=== PATIENT | female | born 1960 | race Asian ===

== ENCOUNTER 2018-09-16 17:42 | Inpatient (IN) | payer BC ==
[~2018-09-16] VITALS: Ht 144.8 cm; Wt 40.9 kg
[2018-09-16 23:07] VITALS: Ht 144.8 cm; Wt 40.9 kg
[2018-09-17] VITALS (10 sets, daily range): BP systolic 95–131; BP diastolic 53–80; PULSE 69–85; RESP 16–19
[2018-09-17] MEDS ORDERED: BENZ2TAB7 PO (01:24)
[2018-09-17] MEDS ORDERED: LAMO25TA PO (01:25)
[2018-09-17] MEDS ORDERED: RISP0.5T3 PO (01:26)
[2018-09-17] MEDS ORDERED: AMLO2.5T78 PO (01:30)
[2018-09-17] MEDS ORDERED: CYAN50TA PO (01:31)
[2018-09-17] MEDS ORDERED: ACETAMINOPHEN 325 MG TAB PO PRN (03:30)
[2018-09-17] MEDS ORDERED: NITROGLYCERIN (SL) 0.4 MG TAB SL PRN (03:30)
[2018-09-17] MEDS ORDERED: morphine SULFATE/PF (2 MG/2 ML) SYG IV PRN (03:30)
[2018-09-17] MEDS ORDERED: hydrALAzine 20 MG INJ IV PRN (03:30)
[2018-09-17] MEDS ORDERED: NACL 0.9% 3 ML SYG IV SCH (03:30)
[2018-09-17] MEDS ORDERED: ONDANSETRON 4 MG INJ IV PRN (03:30)
[2018-09-17] MEDS ORDERED: ALBUTEROL/IPRATROPIUM (NEB) 3 ML AMP HHN PRN (03:30)
[2018-09-17] MEDS ORDERED: DOCUSATE SODIUM 100 MG CAP PO PRN (03:30)
[2018-09-17] MEDS ORDERED: HYDROCODONE/APAP (5/325) TAB PO PRN (03:30)
[2018-09-17] MEDS ORDERED: LORAZEPAM 2 MG INJ IV PRN ×2 (03:30)
[2018-09-17] MEDS ORDERED: MAGNESIUM HYDROXIDE 30ML CUP PO PRN (03:30)
[2018-09-17] MEDS: CEFTRIAXONE 1 GM/50 ML (PMX) 50 ML IVPB SCH (04:12)
[2018-09-17] MEDS: SOD CHLORIDE 0.45% 1,000 ML IV SCH ×2 (04:12→18:28)
[2018-09-17] MEDS ORDERED: PENDING SANTYL ORDER FOR WOUND CARE XX PRN (05:00)
[2018-09-17] MEDS: PANTOPRAZOLE 40 MG INJ IV SCH (05:17)
--- NOTE | 2018-09-17 06:22 | HP ---
DATE OF ADMISSION: 09/16/2018 CHIEF COMPLAINT: Altered mental status and new seizures. HISTORY OF PRESENT ILLNESS: A 58-year-old female transferred from outside hospital, prior history of severe dementia, bedridden, nonverbal, cared for at home by , who was brought into [facility] ER with altered mental status. Apparently, she has had some subjective fevers at home rec ently. Family became concerned, especially when yesterday, before coming to the ER, they found the patient t o be less responsive and possible seizure activity, which the patient has never had at home. EMS was called. She received Versed in the ER and then was transferred to the emergency room. There, she w as found with sodium of 127. White count was slightly high at 11. She initially had a high lactic a scott of 8.4 and she received around 2 liters of IV fluids because of low blood pressure. The blood pr essure improved after the IV fluids were given. She came back to her baseline blood pressure. She w as also found with a UTI at the outside hospital. She also received Keppra 500 mg IV because of the concern for seizures. No upper or lower GI bleeding, no diarrhea or constipation. PAST MEDICAL HISTORY: Per records, prior history of West Nile virus infection, high cholesterol, hyp ertension. SOCIAL HISTORY: Negative for smoking, drinking or IV drug abuse. FAMILY HISTORY: Positive for Alzheimer's disease in the mother. PAST SURGICAL HISTORY: Unknown. PHYSICAL EXAMINATION: VITAL SIGNS: Today, T-max 97.9, pulse 70, respirations 18, blood pressure 103/59 satting at 98% on r oom air. GENERAL: The patient is lying in bed, no acute distress. HEENT: Pupils equal, round and reactive to light. Extraocular muscles intact. NECK: Supple, no thyromegaly. LUNGS: Clear to auscultation bilaterally. CARDIOVASCULAR: S1, S2 heard. No rubs or gallops. ABDOMEN: Soft, nontender, nondistended. Normal bowel sounds heard. No rebound or guarding. MUSCULOSKELETAL: No lower extremity edema bilaterally. NEUROLOGIC: Unable to fully assess at this time. LABORATORY DATA: UA shows positive nitrites and positive leukocyte esterase. WBC 11.2, hemoglobin 1 1.2, hematocrit 33, platelets 375. Sodium 127, potassium 3.7, chloride 95, CO2 of 16, BUN of 4, crea tinine 0.89, glucose of 147. LFTs are essentially normal. Lipase was normal. Ammonia was normal. Head CT at the outside hospital showed no acute intracranial pathology. ASSESSMENT AND PLAN: A 58-year-old female with history of severe dementia, bedbound, nonverbal, high cholesterol, hypertension who comes in with altered mental status and seizure activity and hyponatre zeny. 1. Altered mental status could be secondary to the patient's UTI and new onset seizure activity. Ad mariama the patient. Check TSH, A1c, lipid panel. Get physical therapy and occupational therapy consult s. We will check EEG, do neuro checks every 4 hours. Will get a neurology consult. Start the patie nt on low-dose Keppra for now. 2. Urinary tract infection. Again, we will continue IV fluids and broad-spectrum antibiotics. Foll ow up final culture results. 3. Hypernatremia. Monitor BMP. Continue IV fluids. 4. History of hypertension. Blood pressure stable. Continue hydralazine as needed p.r.n. 5. High cholesterol. Follow up lipid panel. 6. History of severe dementia. Monitor for now. We will get Neurology consult as mentioned above. Dictated By: ANGELLA HOLMAN/REBEKAH Conf#: [id number] DID#: [id number] CC: ANGELLA PERRIN;*EndCC*
[2018-09-17] MEDS ORDERED: LEVETIRACETAM 500 MG (PMX) 100 ML IVPB SCH (09:00)
[2018-09-17] MEDS: HEPARIN 5,000 UNIT/1 ML VIAL SC SCH ×2 (10:01→22:22)
--- NOTE | 2018-09-17 12:30 | PN ---
Date/Time of Note Date/Time of Note DATE: 09/17/18 TIME: 12:30 Assessment/Plan VTE Prophylaxis Risk score (from Nsg)>0 risk: 3 SCD applied (from Ns): Yes Pharmacological prophylaxis: heparin Lines/Catheters IV Catheter Type (from Nrs): Saline Lock Assessment/Plan Hospital Course S: sl;eeping comfortably, was medicatied with ativaln for agitation O: Constitutional: sleeping, did not try to arouse Head: atraumatic, normocephalic, NC Neck: non-tender, supple Respiratory: clear to auscultation, diminished Cardiovascular: regular rate and rhythm Gastrointestinal: S/ NT / ND / +BS Extremities: no edema, good radial pulses, frail, assessment and Plan: 58 yo F with a slow early onset dementia, cause unknown who is non verbal at baseline who was toma in for abnormal jerking behaviour concerning for seizures 1. Altered mentation with concern for possible new onset seizures -Brain CT at outside hospital negative per report 2. Urinary tract infection per report 3. Chronic dementia/encephalopathy, nonverbal at baseline? 4. History of West Nile virus infection, causing #3? 5. Chronic dyslipidemia 6. Chronic hypertension 7. Chronic psychiatric d/c on risperdone with benztropine for tardive dyskinesia ? -dose of benztropine recently reduced Plan : -we will order MRI of the brain, continue antiseizure medications, await neurology review - concerned that reduction in dose of benztropine may be contributory - does not want chest compressions but wants short term intubation if neccesary and meds administered. Does not want shocks as well -Continue broad-spectrum antibiotics, follow-up urinalysis and urine culture, further interventions per course. Result Diagram: 09/17/18 0453 09/17/18 0452 Results 24hrs Laboratory Tests Test 09/17/18 04:52 09/17/18 04:53 Prothrombin Time 13.2 Prothrombin Time Ratio 1.0 INR International Normalized Ratio 0.99 Activated Partial Thromboplast Time 29.2 Sodium Level 140 Potassium Level 3.2 L Chloride Level 108 Carbon Dioxide Level 20 L Anion Gap 12 Blood Urea Nitrogen 4 L Creatinine 0.30 L Est Glomerular Filtrat Rate mL/min > 60 Glucose Level 79 Calcium Level 8.6 Free Thyroxine 1.80 H White Blood Count 7.0 Red Blood Count 3.51 L Hemoglobin 10.9 L Hematocrit 31.4 L Mean Corpuscular Volume 89.5 Mean Corpuscular Hemoglobin 31.1 Mean Corpuscular Hemoglobin Concent 34.7 Red Cell Distribution Width 11.9 Platelet Count 293 Mean Platelet Volume 8.1 Immature Granulocytes % 0.300 Neutrophils % 78.0 H Lymphocytes % 12.2 L Monocytes % 6.1 Eosinophils % 2.7 Basophils % 0.7 Nucleated Red Blood Cells % 0.0 Immature Granulocytes # 0.020 Neutrophils # 5.5 Lymphocytes # 0.9 Monocytes # 0.4 Eosinophils # 0.2 Basophils # 0.1 Nucleated Red Blood Cells # 0.0 Exam/Review of Systems Exam Vitals Vital Signs Date Temp Pulse Resp B/P (MAP) Pulse Ox O2 O2 Flow FiO2 Time Delivery Rate 09/17/18 96.3 74 16 98/53 (68) 100 Nasal 11:12 Cannula Intake and Output 09/16/18 09/16/18 09/17/18 1515:00 23:00 07:00 IntakeIntake Total 150 ml BalanceBalance 150 ml Results Results 24hrs Laboratory Tests Test 09/17/18 04:52 09/17/18 04:53 Prothrombin Time 13.2 Prothrombin Time Ratio 1.0 INR International Normalized Ratio 0.99 Activated Partial Thromboplast Time 29.2 Sodium Level 140 Potassium Level 3.2 L Chloride Level 108 Carbon Dioxide Level 20 L Anion Gap 12 Blood Urea Nitrogen 4 L Creatinine 0.30 L Est Glomerular Filtrat Rate mL/min > 60 Glucose Level 79 Calcium Level 8.6 Free Thyroxine 1.80 H White Blood Count 7.0 Red Blood Count 3.51 L Hemoglobin 10.9 L Hematocrit 31.4 L Mean Corpuscular Volume 89.5 Mean Corpuscular Hemoglobin 31.1 Mean Corpuscular Hemoglobin Concent 34.7 Red Cell Distribution Width 11.9 Platelet Count 293 Mean Platelet Volume 8.1 Immature Granulocytes % 0.300 Neutrophils % 78.0 H Lymphocytes % 12.2 L Monocytes % 6.1 Eosinophils % 2.7 Basophils % 0.7 Nucleated Red Blood Cells % 0.0 Immature Granulocytes # 0.020 Neutrophils # 5.5 Lymphocytes # 0.9 Monocytes # 0.4 Eosinophils # 0.2 Basophils # 0.1 Nucleated Red Blood Cells # 0.0 Medications Medication Current Medications IV Flush (NS 3 ml) 3 ml PER PROTOCOL IV ; Start 09/17/18 at 03:30 Ondansetron HCl (Zofran Inj) 4 mg Q6H PRN IV NAUSEA/VOMITING; Start 09/17/18 at 03:30 Acetaminophen (Tylenol Tab) 650 mg Q6H PRN PO .PAIN 1-3 OR TEMP; Start 09/17/18 at 03:30 Acetaminophen/ Hydrocodone Bitart ([place] (5/325)) 1 tab Q6H PRN PO .MOD PAIN 4- 6; Start 09/17/18 at 03:30 Morphine Sulfate (morphine SULFATE (PF)) 2 mg Q4H PRN IV .SEVERE PAIN 7-10; Start 09/17/18 at 03:30 Docusate Sodium (Colace) 100 mg Q12H PRN PO .CONSTIPATION; Start 09/17/18 at 03:30 Magnesium Hydroxide (Milk Of Mag) 30 ml DAILY PRN PO .CONSTIPATION; Start 09/17/18 at 03:30 Pantoprazole (Protonix Iv) 40 mg DAILY@06 IV Last administered on 09/17/18at 05:17; Admin Dose 40 MG; Start 09/17/18 at 06:00 Heparin Sodium (Porcine) (Heparin (5000 Units/1ml)) 5,000 unit Q12 SC Last administered on 09/17/18at 10:01; Admin Dose 5,000 UNIT; Start 09/17/18 at 09:00 Sodium Chloride 1,000 ml @ 75 mls/hr [id number] IV Last administered on 09/17/18at 04:12; Admin Dose 75 MLS/HR; Start 09/17/18 at 03:12 Albuterol/ Ipratropium (Duoneb) 3 ml Q4H RESP THERAPY PRN HHN SHORTNESS OF BREATH; Start 09/17/18 at 03:30 Hydralazine HCl (Apresoline) 10 mg Q6H PRN IV ELEVATED BLOOD PRESSURE; Start 09/17/18 at 03:30 Ceftriaxone Sodium 50 ml @ 100 mls/hr Q24H IVPB Last administered on 09/17/18at 04:12; Admin Dose 100 MLS/HR; Start 09/17/18 at 03:30 Nitroglycerin (Nitroglycerin (Sl Tab) 0.4 Mg) 1 tab Q5M PRN SL ANGINA; Start 09/17/18 at 03:30 Levetiracetam 100 ml @ 400 mls/hr Q12 IVPB Last administered on 09/17/18at 09:54; Admin Dose 400 MLS/HR; Start 09/17/18 at 09:00 Lorazepam (Ativan) 1 mg Q2H PRN IV SEIZURES Last administered on 09/17/18at 03:57; Admin Dose 1 MG; Start 09/17/18 at 03:30 Miscellaneous Information (Pending [facility] Order For Wound Care) This patient goel... PRN PRN XX WOUND CARE; Start 09/17/18 at 05:00 DYLAN RAMOS Sep 17, 2018 12:30
--- NOTE | 2018-09-17 15:07 | CONS ---
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 She was reported to have a seizure... for which neurology is consulted. Of note, she was severely hyponatremic on arrival. UA + Most clinically consistent with a provoked seizure in the context of hyponatremia. New onset epilepsy is additionally considered. P: MRI brain with and without contrast for further characterization Await EEG to evaluate for epileptiform activity Hold Keppra for now Ativan IV PRN seizure > 5min or for cluster Other medical management per primary [place] as able Limit sedating medications where possible PT/OT/ST as necessary Will follow clinically Consultation Date/Type/Reason Admit Date/Time Sep 16, 2018 at 22:12 Type of Consult Neurology Reason for Consultation new onset seizures Requesting Provider: ANGELLA PERRIN Date/Time of Note DATE: 09/17/18 TIME: 15:07 Hx of Present Illness 58 yo F with hx of WNV infection, chronic encephalopathy, and other comorbidities who presents with altered mental status and new onset seizures. History was obtained from chart review as pt is a poor historian. It is elsewhere noted: HISTORY OF PRESENT ILLNESS: A 58-year-old female transferred from outside hospital, prior history of severe dementia, bedridden, nonverbal, cared for at home by , who was brought into the outside hospital ER with altered mental status. Apparently, she has had some subjective fevers at home recently. Family became concerned, especially when yesterday, before coming to the ER, they found the patient to be less responsive and possible seizure activity, which the patient has never had at home. EMS was called. She received Versed in the ER and then was transferred to the emergency room. There, she was found with sodium of 127. White count was slightly high at 11. She initially had a high lactic acid of 8.4 and she received around 2 liters of IV fluids because of low blood pressure. The blood pressure improved after the IV fluids were given. She came back to her baseline blood pressure. She was also found with a UTI at the outside hospital. She also received Keppra 500 mg IV because of the concern for seizures. No upper or lower GI bleeding, no diarrhea or constipation. Subjective hx not possible: pt non-verbal Exam/Review of Systems Exam Vitals Vital Signs Date Temp Pulse Resp B/P (MAP) Pulse Ox O2 O2 Flow FiO2 Time Delivery Rate 09/17/18 76 12:00 09/17/18 96.3 16 98/53 (68) 100 Nasal 11:12 Cannula Intake and Output 09/16/18 09/16/18 09/17/18 1515:00 23:00 07:00 IntakeIntake Total 150 ml BalanceBalance 150 ml Exam PE: Gen Appearance: No Apparent Distress HEENT: Normocephalic Cardiovascular: Regular rate Abdomen: Soft Extremities: Dry NE: The patient was obtunded and nonverbal. Grimaces to noxious stimuli. Cranial nerve examination was limited by mental status. Pupils were equal and reactive to light. There was no afferent pupillary defect. Funduscopic examination was limited. Face was grossly symmetric, w/ present corneal and cough reflexes. Tone was spastic in BUE. Muscle bulk was diminished. I did not see fasciculations. The patient withdrew to noxious stimulation x 4. Coordination and gait testing was limited by mental status. Leg reflexes were brisk and symmetric. Hudson's sign was absent. Plantar responses were flexor. Results Result Diagram: 09/17/18 0453 09/17/18 0452 Results 24hrs Laboratory Tests Test 09/17/18 04:48 09/17/18 04:52 09/17/18 04:53 09/17/18 14:15 Thyroid Stimulating 1.940 Hormone (TSH) Prothrombin Time 13.2 Prothrombin Time Ratio 1.0 INR International 0.99 Normalized Ratio Activated 29.2 Partial Thromboplast Time Sodium Level 140 Potassium Level 3.2 L Chloride Level 108 Carbon Dioxide Level 20 L Anion Gap 12 Blood Urea Nitrogen 4 L Creatinine 0.30 L Est Glomerular Filtrat > 60 Rate mL/min Glucose Level 79 Calcium Level 8.6 Free Thyroxine 1.80 H White Blood Count 7.0 Red Blood Count 3.51 L Hemoglobin 10.9 L Hematocrit 31.4 L Mean Corpuscular Volume 89.5 Mean Corpuscular 31.1 Hemoglobin Mean Corpuscular 34.7 Hemoglobin Concent Red Cell Distribution 11.9 Width Platelet Count 293 Mean Platelet Volume 8.1 Immature Granulocytes % 0.300 Neutrophils % 78.0 H Lymphocytes % 12.2 L Monocytes % 6.1 Eosinophils % 2.7 Basophils % 0.7 Nucleated Red Blood 0.0 Cells % Immature Granulocytes # 0.020 Neutrophils # 5.5 Lymphocytes # 0.9 Monocytes # 0.4 Eosinophils # 0.2 Basophils # 0.1 Nucleated Red Blood 0.0 Cells # Urine Color YELLOW Urine Clarity CLOUDY A Urine pH 7.0 Urine Specific [place] 1.009 Urine Ketones 1+ H Urine Nitrite POSITIVE A Urine Bilirubin NEGATIVE Urine Urobilinogen NEGATIVE Urine Leukocyte Esterase 3+ H Urine Microscopic RBC 1 Urine Microscopic WBC 17 H Urine Bacteria FEW A Urine Mucus FEW A Urine Yeast (Budding) FEW A Urine Hemoglobin 1+ H Urine Glucose NEGATIVE Urine Total Protein NEGATIVE Medications Medication Current Medications IV Flush (NS 3 ml) 3 ml PER PROTOCOL IV ; Start 09/17/18 at 03:30 Ondansetron HCl (Zofran Inj) 4 mg Q6H PRN IV NAUSEA/VOMITING; Start 09/17/18 at 03:30 Acetaminophen (Tylenol Tab) 650 mg Q6H PRN PO .PAIN 1-3 OR TEMP; Start 09/17/18 at 03:30 Acetaminophen/ Hydrocodone Bitart ([place] (5/325)) 1 tab Q6H PRN PO .MOD PAIN 4- 6; Start 09/17/18 at 03:30 Morphine Sulfate (morphine SULFATE (PF)) 2 mg Q4H PRN IV .SEVERE PAIN 7-10; Start 09/17/18 at 03:30 Docusate Sodium (Colace) 100 mg Q12H PRN PO .CONSTIPATION; Start 09/17/18 at 03:30 Magnesium Hydroxide (Milk Of Mag) 30 ml DAILY PRN PO .CONSTIPATION; Start 09/17/18 at 03:30 Pantoprazole (Protonix Iv) 40 mg DAILY@06 IV Last administered on 09/17/18at 05:17; Admin Dose 40 MG; Start 09/17/18 at 06:00 Heparin Sodium (Porcine) (Heparin (5000 Units/1ml)) 5,000 unit Q12 SC Last administered on 09/17/18at 10:01; Admin Dose 5,000 UNIT; Start 09/17/18 at 09:00 Sodium Chloride 1,000 ml @ 75 mls/hr [id number] IV Last administered on 09/17/18at 04:12; Admin Dose 75 MLS/HR; Start 09/17/18 at 03:12 Albuterol/ Ipratropium (Duoneb) 3 ml Q4H RESP THERAPY PRN HHN SHORTNESS OF BREATH; Start 09/17/18 at 03:30 Hydralazine HCl (Apresoline) 10 mg Q6H PRN IV ELEVATED BLOOD PRESSURE; Start 09/17/18 at 03:30 Ceftriaxone Sodium 50 ml @ 100 mls/hr Q24H IVPB Last administered on 09/17/18at 04:12; Admin Dose 100 MLS/HR; Start 09/17/18 at 03:30 Nitroglycerin (Nitroglycerin (Sl Tab) 0.4 Mg) 1 tab Q5M PRN SL ANGINA; Start 09/17/18 at 03:30 Levetiracetam 100 ml @ 400 mls/hr Q12 IVPB Last administered on 09/17/18at 09:54; Admin Dose 400 MLS/HR; Start 09/17/18 at 09:00 Lorazepam (Ativan) 1 mg Q2H PRN IV SEIZURES Last administered on 09/17/18at 03:57; Admin Dose 1 MG; Start 09/17/18 at 03:30 Miscellaneous Information (Pending [facility] Order For Wound Care) This patient goel... PRN PRN XX WOUND CARE; Start 09/17/18 at 05:00 Potassium Chloride 100 ml @ 50 mls/hr Q2H IVPB ; Start 09/17/18 at 14:30; Stop 09/17/18 at 18:29 Past Medical History reviewed Home Meds Reported Medications Cyanocobalamin* (Vitamin B-12*) 50 Mcg Tablet, 50 MCG PO DAILY, TAB 09/17/18 Amlodipine Besylate* (Amlodipine Besylate*) 2.5 Mg Tablet, 5 MG PO DAILY, #30 TAB 09/17/18 Risperidone* (Risperidone*) 0.5 Mg Tablet, 0.5 MG PO DAILY, TAB 09/17/18 Lamotrigine* (Lamotrigine*) 25 Mg Tablet, 25 MG PO DAILY, TAB 09/17/18 Benztropine Mesylate* (Benztropine Mesylate*) 2 Mg Tablet, 2 MG PO BID, TAB 09/17/18 Medications Current Medications IV Flush (NS 3 ml) 3 ml PER PROTOCOL IV ; Start 09/17/18 at 03:30 Ondansetron HCl (Zofran Inj) 4 mg Q6H PRN IV NAUSEA/VOMITING; Start 09/17/18 at 03:30 Acetaminophen (Tylenol Tab) 650 mg Q6H PRN PO .PAIN 1-3 OR TEMP; Start 09/17/18 at 03:30 Acetaminophen/ Hydrocodone Bitart ([place] (5/325)) 1 tab Q6H PRN PO .MOD PAIN 4- 6; Start 09/17/18 at 03:30 Morphine Sulfate (morphine SULFATE (PF)) 2 mg Q4H PRN IV .SEVERE PAIN 7-10; Start 09/17/18 at 03:30 Docusate Sodium (Colace) 100 mg Q12H PRN PO .CONSTIPATION; Start 09/17/18 at 03:30 Magnesium Hydroxide (Milk Of Mag) 30 ml DAILY PRN PO .CONSTIPATION; Start 09/17/18 at 03:30 Pantoprazole (Protonix Iv) 40 mg DAILY@06 IV Last administered on 09/17/18at 05:17; Admin Dose 40 MG; Start 09/17/18 at 06:00 Heparin Sodium (Porcine) (Heparin (5000 Units/1ml)) 5,000 unit Q12 SC Last administered on 09/17/18at 10:01; Admin Dose 5,000 UNIT; Start 09/17/18 at 09:00 Sodium Chloride 1,000 ml @ 75 mls/hr [id number] IV Last administered on 09/17/18at 04:12; Admin Dose 75 MLS/HR; Start 09/17/18 at 03:12 Albuterol/ Ipratropium (Duoneb) 3 ml Q4H RESP THERAPY PRN HHN SHORTNESS OF [place] ATH; Start 09/17/18 at 03:30 Hydralazine HCl (Apresoline) 10 mg Q6H PRN IV ELEVATED BLOOD PRESSURE; Start 09/17/18 at 03:30 Ceftriaxone Sodium 50 ml @ 100 mls/hr Q24H IVPB Last administered on 09/17/18at 04:12; Admin Dose 100 MLS/HR; Start 09/17/18 at 03:30 Nitroglycerin (Nitroglycerin (Sl Tab) 0.4 Mg) 1 tab Q5M PRN SL ANGINA; Start 09/17/18 at 03:30 Levetiracetam 100 ml @ 400 mls/hr Q12 IVPB Last administered on 09/17/18at 09:54; Admin Dose 400 MLS/HR; Start 09/17/18 at 09:00 Lorazepam (Ativan) 1 mg Q2H PRN IV SEIZURES Last administered on 09/17/18at 03:57; Admin Dose 1 MG; Start 09/17/18 at 03:30 Miscellaneous Information [facility] This patient goel... PRN PRN XX WOUND CARE; Start 09/17/18 at 05:00 Potassium Chloride 100 ml @ 50 mls/hr Q2H IVPB ; Start 09/17/18 at 14:30; Stop 09/17/18 at 18:29 Allergies: Coded Allergies: No Known Allergy (Unverified , 09/17/18) Past Surgical History reviewed Social History reviewed Smoking Status: Never smoker SWEETIE NATARAJAN NP Sep 17, 2018 15:07 CA ZURITA Sep 17, 2018 17:53
[2018-09-17] MEDS: POTASSIUM CHLORIDE 100 ML IVPB SCH ×2 (15:21→18:28)
[2018-09-18] VITALS (31 sets, daily range): BP systolic 56–172; BP diastolic 47–103; PULSE 53–86; RESP 8–24
[2018-09-18] MEDS: CEFTRIAXONE 1 GM/50 ML (PMX) 50 ML IVPB SCH (04:12)
[2018-09-18] MEDS: SOD CHLORIDE 0.45% 1,000 ML IV SCH (06:43)
[2018-09-18] MEDS: PANTOPRAZOLE 40 MG INJ IV SCH (06:43)
[2018-09-18] MEDS ORDERED: ETOMIDATE 20 MG INJ ONE (07:00)
[2018-09-18] MEDS ORDERED: SUCCINYLCHOLINE CHLORIDE 100 MG/5 ML SYG IV ONE (07:00)
--- NOTE | 2018-09-18 07:10 | EEG ---
EEG NOTE Report Details DATE OF TEST: 09/17/18 HISTORY: The patient is a 58-year-old F who presents with altered mental status and seizure. This EEG is requested to rule out nonconvulsive status epilepticus. SEDATION: None. CONDITIONS OF RECORDING: This EEG was recorded digitally on the [employer] machine, using the International 10-20 System of electrodes plus anterior temporals and [place]. STATES SAMPLED: Lethargic. FINDINGS: The background is somewhat discontinuous, though grossly symmetric...predominated by polymorphic delta activity.. There are generalized periodic epileptiform discharges throughout. A posterior dominant rhythm is absent. The normal [id number] frequency-amplitude gradient is absent. Photic stimulation does not elicit any definite driving responses or epileptiform discharges. Hyperventilation was not performed. There is a Right Temporal onset electrographic seizure with secondary generalization toward the culmination of the record. IMPRESSION: Abnormal electroencephalogram due to: severe diffuse slowing with generalized periodic epileptiform discharges, and a right temporal onset electrographic seizure with secondary generalization. COMMENT: The slowing of the background with generalized periodic epileptiform discharges indicates severe, diffuse cortical dysfunction of nonspecific etiology. A right temporal onset electrographic seizure with secondary generalization indicates an epileptogenic focus in that region. CA ZURITA Sep 18, 2018 07:10
[2018-09-18] MEDS ORDERED: PHENYTOIN 1,000 MG in SOD CHLORIDE 0.9% 100 ML IV ONE (07:30)
[2018-09-18] MEDS: LEVETIRACETAM 500 MG (PMX) 100 ML IVPB SCH ×3 (08:57→23:00)
--- NOTE | 2018-09-18 09:18 | PN ---
Date/Time of Note Date/Time of Note DATE: 09/18/18 TIME: 09:17 Assessment/Plan VTE Prophylaxis Risk score (from Nsg)>0 risk: 3 SCD applied (from Nsg): Yes Pharmacological prophylaxis: heparin Lines/Catheters IV Catheter Type (from Nrsg): Saline Lock Urinary Cath still in place: No Assessment/Plan Hospital Course S: sleeping deeply, hard to arouse, was given dilantin for persistent seizures on EEG, per at bedside, was having jerklike movements again before dilantin was given O: Constitutional: sleeping, will barely open eyes with aggressive stimulation, no seizure like activity Head: atraumatic, normocephalic, NC Neck: non-tender, supple Respiratory: coarse Cardiovascular: regular rate and rhythm Gastrointestinal: S/ NT / ND / +BS Extremities: no edema, good radial pulses, frail, assessment and Plan: 58 yo F with a slow early onset dementia, cause unknown who is non verbal at baseline who was brought in for abnormal jerking behavior concerning for seizures 1. Altered mentation with concern for possible new onset seizures -Brain CT at outside hospital negative per report -MRI pending -EEG confirms ongoing seizure, -dilantin added to regimen Neurology managing, f/u recs 2. Nitrite + Urinary tract infection -continue empiric abx, continue to monitor cultures 3. Chronic dementia/encephalopathy, -nonverbal and bedbound at baseline. Of gradual onset, no organic cause found despite extensive workup -cared for at home by and children 24hours 4. 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 5. Chronic dyslipidemia 6. Chronic hypertension 7. Chronic psychiatric d/c on risperdone with benztropine for tardive dyskinesia ? -dose of benztropine recently reduced Plan : -appreciate neurology review -monitor mentation closely, d/t sedating effect of antiseizures, patient may be unable to maintain airway -patient also unable to eat d/t aspiration risk, continue d5 1/2 NS -f/u MRI findings -may need TPN for short term ??? -POC discussed in detail with . Result Diagram: 09/18/18 0659 09/18/18 0658 Results 24hrs Laboratory Tests Test 09/17/18 14:15 09/18/18 06:58 09/18/18 06:59 Urine Color YELLOW Urine Clarity CLOUDY A Urine pH 7.0 Urine Specific Pioneer 1.009 Urine Ketones 1+ H Urine Nitrite POSITIVE A Urine Bilirubin NEGATIVE Urine Urobilinogen NEGATIVE Urine Leukocyte Esterase 3+ H Urine Microscopic RBC 1 Urine Microscopic WBC 17 H Urine Bacteria FEW A Urine Mucus FEW A Urine Yeast (Budding) FEW A Urine Hemoglobin 1+ H Urine Glucose NEGATIVE Urine Total Protein NEGATIVE Sodium Level 131 L Potassium Level 4.4 Chloride Level 105 Carbon Dioxide Level 19 L Anion Gap 7 Blood Urea Nitrogen 3 L Creatinine 0.27 L Est Glomerular Filtrat Rate mL/min > 60 Glucose Level 74 Calcium Level 8.8 Phosphorus Level 4.1 Magnesium Level 1.7 Triglycerides Level 60 Cholesterol Level 173 LDL Cholesterol, Calculated 116 HDL Cholesterol 45 Cholesterol/HDL Ratio 3.8 Thyroid Stimulating Hormone (TSH) 1.560 White Blood Count 11.2 #H Red Blood Count 3.95 L Hemoglobin 12.4 Hematocrit 35.8 L Mean Corpuscular Volume 90.6 Mean Corpuscular Hemoglobin 31.4 Mean Corpuscular Hemoglobin Concent 34.6 Red Cell Distribution Width 11.9 Platelet Count 270 Mean Platelet Volume 9.5 Immature Granulocytes % 0.200 Neutrophils % 82.9 H Lymphocytes % 7.3 L Monocytes % 7.8 Eosinophils % 1.3 Basophils % 0.5 Nucleated Red Blood Cells % 0.0 Immature Granulocytes # 0.020 Neutrophils # 9.3 H Lymphocytes # 0.8 Monocytes # 0.9 Eosinophils # 0.1 Basophils # 0.1 Nucleated Red Blood Cells # 0.0 Exam/Review of Systems Exam Vitals Vital Signs Date Temp Pulse Resp B/P (MAP) Pulse Ox O2 O2 Flow FiO2 Time Delivery Rate 09/18/18 71 08:57 09/18/18 97.3 18 119/73 99 07:25 (88) 09/17/18 Nasal 15:11 Cannula Intake and Output 09/17/18 09/17/18 09/18/18 1515:00 23:00 07:00 IntakeIntake Total 0 ml 750 ml OutputOutput Total 250 ml BalanceBalance -250 ml 750 ml Results Results 24hrs Laboratory Tests Test 09/17/18 14:15 09/18/18 06:58 09/18/18 06:59 Urine Color YELLOW Urine Clarity CLOUDY A Urine pH 7.0 Urine Specific Pioneer 1.009 Urine Ketones 1+ H Urine Nitrite POSITIVE A Urine Bilirubin NEGATIVE Urine Urobilinogen NEGATIVE Urine Leukocyte Esterase 3+ H Urine Microscopic RBC 1 Urine Microscopic WBC 17 H Urine Bacteria FEW A Urine Mucus FEW A Urine Yeast (Budding) FEW A Urine Hemoglobin 1+ H Urine Glucose NEGATIVE Urine Total Protein NEGATIVE Sodium Level 131 L Potassium Level 4.4 Chloride Level 105 Carbon Dioxide Level 19 L Anion Gap 7 Blood Urea Nitrogen 3 L Creatinine 0.27 L Est Glomerular Filtrat Rate mL/min > 60 Glucose Level 74 Calcium Level 8.8 Phosphorus Level 4.1 Magnesium Level 1.7 Triglycerides Level 60 Cholesterol Level 173 LDL Cholesterol, Calculated 116 HDL Cholesterol 45 Cholesterol/HDL Ratio 3.8 Thyroid Stimulating Hormone (TSH) 1.560 White Blood Count 11.2 #H Red Blood Count 3.95 L Hemoglobin 12.4 Hematocrit 35.8 L Mean Corpuscular Volume 90.6 Mean Corpuscular Hemoglobin 31.4 Mean Corpuscular Hemoglobin Concent 34.6 Red Cell Distribution Width 11.9 Platelet Count 270 Mean Platelet Volume 9.5 Immature Granulocytes % 0.200 Neutrophils % 82.9 H Lymphocytes % 7.3 L Monocytes % 7.8 Eosinophils % 1.3 Basophils % 0.5 Nucleated Red Blood Cells % 0.0 Immature Granulocytes # 0.020 Neutrophils # 9.3 H Lymphocytes # 0.8 Monocytes # 0.9 Eosinophils # 0.1 Basophils # 0.1 Nucleated Red Blood Cells # 0.0 Imaging Imaging EEG NOTE Report Details DATE OF TEST: 09/17/18 HISTORY: The patient is a 58-year-old F who presents with altered mental status and seizure. This EEG is requested to rule out nonconvulsive status epilepticus. SEDATION: None. CONDITIONS OF RECORDING: This EEG was recorded digitally on the Peer[email or web address] machine, using the International 10-20 System of electrodes plus anterior temporals and Nz. STATES SAMPLED: Lethargic. FINDINGS: The background is somewhat discontinuous, though grossly symmetric...predominated by polymorphic delta activity.. There are generalized periodic epileptiform discharges throughout. A posterior dominant rhythm is absent. The normal [id number] frequency-amplitude gradient is absent. Photic stimulation does not elicit any definite driving responses or epileptiform discharges. Hyperventilation was not performed. There is a Right Temporal onset electrographic seizure with secondary generalization toward the culmination of the record. IMPRESSION: Abnormal electroencephalogram due to: severe diffuse slowing with generalized periodic epileptiform discharges, and a right temporal onset electrographic seizure with secondary generalization. COMMENT: The slowing of the background with generalized periodic epileptiform discharges indicates severe, diffuse cortical dysfunction of nonspecific etiology. A right temporal onset electrographic seizure with secondary generalization indicates an epileptogenic focus in that region. CA ZURITA Sep 18, 2018 07:10 <Electronically signed by CA ZURITA MD> Medications Medication Current Medications IV Flush (NS 3 ml) 3 ml PER PROTOCOL IV ; Start 09/17/18 at 03:30 Ondansetron HCl (Zofran Inj) 4 mg Q6H PRN IV NAUSEA/VOMITING; Start 09/17/18 at 03:30 Acetaminophen (Tylenol Tab) 650 mg Q6H PRN PO .PAIN 1-3 OR TEMP; Start 09/17/18 at 03:30 Acetaminophen/ Hydrocodone Bitart ([place] (5/325)) 1 tab Q6H PRN PO .MOD PAIN 4- 6; Start 09/17/18 at 03:30 Morphine Sulfate (morphine SULFATE (PF)) 2 mg Q4H PRN IV .SEVERE PAIN 7-10; Start 09/17/18 at 03:30 Docusate Sodium (Colace) 100 mg Q12H PRN PO .CONSTIPATION; Start 09/17/18 at 03:30 Magnesium Hydroxide (Milk Of Mag) 30 ml DAILY PRN PO .CONSTIPATION; Start 09/17/18 at 03:30 Pantoprazole (Protonix Iv) 40 mg DAILY@06 IV Last administered on 09/18/18at 06:43; Admin Dose 40 MG; Start 09/17/18 at 06:00 Heparin Sodium (Porcine) (Heparin (5000 Units/1ml)) 5,000 unit Q12 SC Last administered on 09/17/18at 22:22; Admin Dose 5,000 UNIT; Start 09/17/18 at 09:00 Sodium Chloride 1,000 ml @ 75 mls/hr [id number] IV Last administered on 09/18/18at 06:43; Admin Dose 75 MLS/HR; Start 09/17/18 at 03:12 Albuterol/ Ipratropium (Duoneb) 3 ml Q4H RESP THERAPY PRN HHN SHORTNESS OF BREATH; Start 09/17/18 at 03:30 Hydralazine HCl (Apresoline) 10 mg Q6H PRN IV ELEVATED BLOOD PRESSURE; Start 09/17/18 at 03:30 Ceftriaxone Sodium 50 ml @ 100 mls/hr Q24H IVPB Last administered on 09/18/18at 04:12; Admin Dose 100 MLS/HR; Start 09/17/18 at 03:30 Nitroglycerin (Nitroglycerin (Sl Tab) 0.4 Mg) 1 tab Q5M PRN SL ANGINA; Start 09/17/18 at 03:30 Lorazepam (Ativan) 1 mg Q2H PRN IV SEIZURES Last administered on 09/17/18at 03:57; Admin Dose 1 MG; Start 09/17/18 at 03:30 Miscellaneous Information (Pending [facility] Order For Wound Care) This patient goel... PRN PRN XX WOUND CARE; Start 09/17/18 at 05:00 Levetiracetam 100 ml @ 400 mls/hr Q12 IVPB Last administered on 09/18/18at 08:57; Admin Dose 400 MLS/HR; Start 09/18/18 at 07:30 DYLAN RAMOS Sep 18, 2018 09:18
--- NOTE | 2018-09-18 10:32 | CONS ---
Assessment/Plan Assessment/Plan Assessment/Plan (Daily) Assessment recommendations; 1. Patient with history of West Nile encephalitis and advanced encephalopathy admitted for possible seizure-like activity. Started on Keppra. Obtain chest x-ray to rule out aspiration pneumonia. Continue current supportive care. Further recommendations once chest x-ray is obtained. Consultation Date/Type/Reason Admit Date/Time Sep 16, 2018 at 22:12 Date of Consultation: Sep 18, 2018 Type of Consult Pulmonary Patient is a 58-year-old [place] lady who was admitted to the hospital with co mplaints of what i is described as seizure activity. Patient has advanced dementia and encephalopathy and was unable to give any history by herself whatsoever. Patient however did appear comfortable in bed. History was obtained from patient's who was present in the room. There is no hist ory of any recent fever, vomiting. Past medical history; 1. 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 Medications; reviewed. Allergies; none. Social history; noncontributory. Family history; patient is , has supportive . Occupational history; patient is on disability. Review of system; unable to be obtained. General exam; middle-aged woman, noncommunicative. Currently in no distress. Date/Time of Note DATE: 09/18/18 TIME: 10:30 Past Medical History Home Meds Reported Medications Cyanocobalamin* (Vitamin B-12*) 50 Mcg Tablet, 50 MCG PO DAILY, TAB 09/17/18 Amlodipine Besylate* (Amlodipine Besylate*) 2.5 Mg Tablet, 5 MG PO DAILY, #30 TAB 09/17/18 Risperidone* (Risperidone*) 0.5 Mg Tablet, 0.5 MG PO DAILY, TAB 09/17/18 Lamotrigine* (Lamotrigine*) 25 Mg Tablet, 25 MG PO DAILY, TAB 09/17/18 Benztropine Mesylate* (Benztropine Mesylate*) 2 Mg Tablet, 2 MG PO BID, TAB 09/17/18 Medications Current Medications IV Flush (NS 3 ml) 3 ml PER PROTOCOL IV ; Start 09/17/18 at 03:30 Ondansetron HCl (Zofran Inj) 4 mg Q6H PRN IV NAUSEA/VOMITING; Start 09/17/18 at 03:30 Acetaminophen (Tylenol Tab) 650 mg Q6H PRN PO .PAIN 1-3 OR TEMP; Start 09/17/18 at 03:30 Acetaminophen/ Hydrocodone Bitart ([place] (5/325)) 1 tab Q6H PRN PO .MOD PAIN 4- 6; Start 09/17/18 at 03:30 Morphine Sulfate (morphine SULFATE (PF)) 2 mg Q4H PRN IV .SEVERE PAIN 7-10; Start 09/17/18 at 03:30 Docusate Sodium (Colace) 100 mg Q12H PRN PO .CONSTIPATION; Start 09/17/18 at 03:30 Magnesium Hydroxide (Milk Of Mag) 30 ml DAILY PRN PO .CONSTIPATION; Start 09/17/18 at 03:30 Pantoprazole (Protonix Iv) 40 mg DAILY@06 IV Last administered on 09/18/18at 06:43; Admin Dose 40 MG; Start 09/17/18 at 06:00 Heparin Sodium (Porcine) (Heparin (5000 Units/1ml)) 5,000 unit Q12 SC Last administered on 09/17/18at 22:22; Admin Dose 5,000 UNIT; Start 09/17/18 at 09:00 Sodium Chloride 1,000 ml @ 75 mls/hr [id number] IV Last administered on 09/18/18at 06:43; Admin Dose 75 MLS/HR; Start 09/17/18 at 03:12 Albuterol/ Ipratropium (Duoneb) 3 ml Q4H RESP THERAPY PRN HHN SHORTNESS OF BREATH; Start 09/17/18 at 03:30 Hydralazine HCl (Apresoline) 10 mg Q6H PRN IV ELEVATED BLOOD PRESSURE; Start 09/17/18 at 03:30 Ceftriaxone Sodium 50 ml @ 100 mls/hr Q24H IVPB Last administered on 09/18/18at 04:12; Admin Dose 100 MLS/HR; Start 09/17/18 at 03:30 Nitroglycerin (Nitroglycerin (Sl Tab) 0.4 Mg) 1 tab Q5M PRN SL ANGINA; Start 09/17/18 at 03:30 Lorazepam (Ativan) 1 mg Q2H PRN IV SEIZURES Last administered on 09/17/18at 03:57; Admin Dose 1 MG; Start 09/17/18 at 03:30 [facility] This patient goel... PRN PRN XX WOUND CARE; Start 09/17/18 at 05:00 Levetiracetam 100 ml @ 400 mls/hr Q12 IVPB Last administered on 09/18/18at 08:57; Admin Dose 400 MLS/HR; Start 09/18/18 at 07:30 Allergies: Coded Allergies: No Known Allergy (Unverified , 09/17/18) Social History Smoking Status: Never smoker Exam/Review of Systems Exam Vitals Vital Signs Date Temp Pulse Resp B/P (MAP) Pulse Ox O2 O2 Flow FiO2 Time Delivery Rate 09/18/18 71 08:57 09/18/18 97.3 18 119/73 99 07:25 (88) 09/17/18 Nasal 15:11 Cannula Intake and Output 09/17/18 09/17/18 09/18/18 1515:00 23:00 07:00 IntakeIntake Total 0 ml 750 ml OutputOutput Total 250 ml BalanceBalance -250 ml 750 ml Exam H EENT exam; supple neck, no JVD. No lymphadenopathy. Midline trachea. No thyromegaly. Patient has fair dentition. Pupils are small bilaterally. Patient has fair dentition. Chest exam; diminished but clear breath sounds. S1-S2 audible, no murmurs. Re gular rhythm. Abdomen exam; soft, nondistended. No organomegaly. Bowel sounds audible. Extremity exam; peripheral edema. [employer] exam; patient remains totally noncommunicative. Results Result Diagram: 09/18/18 0659 09/18/18 0658 Results 24hrs Laboratory Tests Test 09/17/18 14:15 09/18/18 06:58 09/18/18 06:59 Urine Color YELLOW Urine Clarity CLOUDY A Urine pH 7.0 Urine Specific Lena 1.009 Urine Ketones 1+ H Urine Nitrite POSITIVE A Urine Bilirubin NEGATIVE Urine Urobilinogen NEGATIVE Urine Leukocyte Esterase 3+ H Urine Microscopic RBC 1 Urine Microscopic WBC 17 H Urine Bacteria FEW A Urine Mucus FEW A Urine Yeast (Budding) FEW A Urine Hemoglobin 1+ H Urine Glucose NEGATIVE Urine Total Protein NEGATIVE Sodium Level 131 L Potassium Level 4.4 Chloride Level 105 Carbon Dioxide Level 19 L Anion Gap 7 Blood Urea Nitrogen 3 L Creatinine 0.27 L Est Glomerular Filtrat Rate mL/min > 60 Glucose Level 74 Calcium Level 8.8 Phosphorus Level 4.1 Magnesium Level 1.7 Total Bilirubin 0.1 L Direct Bilirubin 0.00 Indirect Bilirubin 0.1 Aspartate Amino Transf (AST/SGOT) 26 Alanine Aminotransferase (ALT/SGPT) 19 Alkaline Phosphatase < 20 L Total Protein 5.8 L Albumin 3.2 L Triglycerides Level 60 Cholesterol Level 173 LDL Cholesterol, Calculated 116 HDL Cholesterol 45 Cholesterol/HDL Ratio 3.8 Thyroid Stimulating Hormone (TSH) 1.560 White Blood Count 11.2 #H Red Blood Count 3.95 L Hemoglobin 12.4 Hematocrit 35.8 L Mean Corpuscular Volume 90.6 Mean Corpuscular Hemoglobin 31.4 Mean Corpuscular Hemoglobin Concent 34.6 Red Cell Distribution Width 11.9 Platelet Count 270 Mean Platelet Volume 9.5 Immature Granulocytes % 0.200 Neutrophils % 82.9 H Lymphocytes % 7.3 L Monocytes % 7.8 Eosinophils % 1.3 Basophils % 0.5 Nucleated Red Blood Cells % 0.0 Immature Granulocytes # 0.020 Neutrophils # 9.3 H Lymphocytes # 0.8 Monocytes # 0.9 Eosinophils # 0.1 Basophils # 0.1 Nucleated Red Blood Cells # 0.0 Medications Medication Current Medications IV Flush (NS 3 ml) 3 ml PER PROTOCOL IV ; Start 09/17/18 at 03:30 Ondansetron HCl (Zofran Inj) 4 mg Q6H PRN IV NAUSEA/VOMITING; Start 09/17/18 at 03:30 Acetaminophen (Tylenol Tab) 650 mg Q6H PRN PO .PAIN 1-3 OR TEMP; Start 09/17/18 at 03:30 Acetaminophen/ Hydrocodone Bitart ([place] (5/325)) 1 tab Q6H PRN PO .MOD PAIN 4- 6; Start 09/17/18 at 03:30 Morphine Sulfate (morphine SULFATE (PF)) 2 mg Q4H PRN IV .SEVERE PAIN 7-10; Start 09/17/18 at 03:30 Docusate Sodium (Colace) 100 mg Q12H PRN PO .CONSTIPATION; Start 09/17/18 at 03:30 Magnesium Hydroxide (Milk Of Mag) 30 ml DAILY PRN PO .CONSTIPATION; Start 09/17/18 at 03:30 Pantoprazole (Protonix Iv) 40 mg DAILY@06 IV Last administered on 09/18/18at 06:43; Admin Dose 40 MG; Start 09/17/18 at 06:00 Heparin Sodium (Porcine) (Heparin (5000 Units/1ml)) 5,000 unit Q12 SC Last administered on 09/17/18at 22:22; Admin Dose 5,000 UNIT; Start 09/17/18 at 09:00 Sodium Chloride 1,000 ml @ 75 mls/hr [id number] IV Last administered on 09/18/18at 06:43; Admin Dose 75 MLS/HR; Start 09/17/18 at 03:12 Albuterol/ Ipratropium (Duoneb) 3 ml Q4H RESP THERAPY PRN HHN SHORTNESS OF BREATH; Start 09/17/18 at 03:30 Hydralazine HCl (Apresoline) 10 mg Q6H PRN IV ELEVATED BLOOD PRESSURE; Start 09/17/18 at 03:30 Ceftriaxone Sodium 50 ml @ 100 mls/hr Q24H IVPB Last administered on 09/18/18at 04:12; Admin Dose 100 MLS/HR; Start 09/17/18 at 03:30 Nitroglycerin (Nitroglycerin (Sl Tab) 0.4 Mg) 1 tab Q5M PRN SL ANGINA; Start 09/17/18 at 03:30 Lorazepam (Ativan) 1 mg Q2H PRN IV SEIZURES Last administered on 09/17/18at 03:57; Admin Dose 1 MG; Start 09/17/18 at 03:30 Miscellaneous Information ([facility]) This patient goel... PRN PRN XX WOUND CARE; Start 09/17/18 at 05:00 Levetiracetam 100 ml @ 400 mls/hr Q12 IVPB Last administered on 09/18/18at 08:57; Admin Dose 400 MLS/HR; Start 09/18/18 at 07:30 JUNIOR FLOREZ Sep 18, 2018 10:32
[2018-09-18] MEDS: HEPARIN 5,000 UNIT/1 ML VIAL SC SCH ×2 (10:52→22:00)
--- NOTE | 2018-09-18 15:48 | CONS ---
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 She was additionally reported to have a seizure... for which neurology is co nsulted. Most clinically consistent with new onset epilepsy. EEG is notable for GPEDs and an electrographic seizure originating in the R temporal region.. Now s/p Dilantin load to goal ~25, with ongoing episodic staring spells (presumed seizures) noted clinically.. P: Await MRI brain with and without contrast for further characterization Transfer to ICU, then load w/ phenobarbital 800mg iv (divided in 4 doses) Repeat dilantin level in am; start maintenance when level <20 OK to continue Keppra as ordered for now Airway and other medical management per primary Will follow clinically Consultation Date/Type/Reason Admit Date/Time Sep 16, 2018 at 22:12 Type of Consult Neurology Reason for Consultation new onset seizures Requesting Provider: ANGELLA PERRIN Date/Time of Note DATE: 09/18/18 TIME: 15:48 24 HR Interval Summary Free Text/Dictation Continues telemetry monitoring. S/p EEG, MRI. at bedside states that the pt has been out of it today, "staring up at the ceiling and not looking at me." Stated that this has happened several times today as well as in the past. Subjective hx not possible: pt non-verbal Exam Vital Signs Vitals Vital Signs Date Temp Pulse Resp B/P (MAP) Pulse Ox O2 O2 Flow FiO2 Time Delivery Rate 09/18/18 74 12:29 09/18/18 98.4 15 113/59 95 11:08 (77) 09/18/18 Nasal 2.0 09:01 Cannula Intake and Output 09/17/18 09/17/18 09/18/18 1515:00 23:00 07:00 IntakeIntake Total 0 ml 750 ml OutputOutput Total 250 ml BalanceBalance -250 ml 750 ml Exam PE: Gen Appearance: No Apparent Distress HEENT: Normocephalic Cardiovascular: Regular rate Abdomen: Soft Extremities: Dry NE: The patient was awake, though unresponsive. Does not blink to confrontation. Is nonverbal. Cranial nerve examination was limited by mental status. Pupils were equal and reactive to light. There was no afferent pupillary defect. Funduscopic exa mination was limited. Face was grossly symmetric, w/ present corneal and cough reflexes. Tone was spastic in BUE. Muscle bulk was diminished. I did not see fasciculations. The patient minimally withdrew to noxious stimulation x 4. Coordination and gait testing was limited by mental status. Leg reflexes were brisk and symmetric. Hudson's sign was absent. Plantar responses were flexor. SWEETIE NATARAJAN NP Sep 18, 2018 15:48 CA ZURITA Sep 18, 2018 17:57
[2018-09-18] MEDS: DEXTROSE 5%-0.45% NACL 1,000 ML IV SCH (17:26)
[2018-09-18] MEDS ORDERED: PHENOBARBITAL 65 MG INJ IV ONE ×4 (17:30→20:30)
[2018-09-18] MEDS ORDERED: PHENOBARBITAL IV SCH (18:30)
[2018-09-18] MEDS ORDERED: PHENOBARBITAL IVPB SCH (18:30)
[2018-09-18] MEDS ORDERED: SOD CHLORIDE 0.9% IVPB SCH (18:30)
[2018-09-18] MEDS ORDERED: SOD CHLORIDE 0.9% IV SCH (18:30)
--- NOTE | 2018-09-18 19:40 | QN ---
Documentation Comment 58-year-old woman I was called to the ICU to intubate. She has a history of chronic encephalopathy and bedbound state and was initially on a DO NOT RESUSCITATE status per family reversed the DNI portion and wanted intubation if needed. Endotracheal Intubation by me: Pre assessment performed. Etomidate 20 mg IV x1 and succinylcholine 50 mg IV x1 was given for sedation and paralysis Pre-oxygenation performed with 100% oxygen RSI: Performed w/o complication or hypoxic events. Medications as ordered above Blade: 4.0 [place] ET Tube: 7.5 cm Depth: 23 cm at the lip Intubation confirmed by colorimetric CO2, equal breath sounds, quiet over the stomach. Given the size of the patient and I do suspect the tube is at or near the dmitry although I will wait for chest x-ray to determine how far to retract the tube. Postintubation the patient's oxygen saturation is 100% Chest X-ray 1V Interpreted by me: ET tube was lodged in the right mainstem bronchus. No pneumothorax, no air under the diaphragm. ET tube was retracted about 5 cm. BALBINA ALBRECHT MD Sep 18, 2018 19:40
[2018-09-18] MEDS: NORepinephrine 8MG/250 ML (PMX 250 ML IV SCH (21:00)
[2018-09-18] MEDS ORDERED: PROPOFOL 100 ML IV SCH (21:00)
[2018-09-18] MEDS: PROPOFOL 100 ML IV SCH (21:00)
[2018-09-18] MEDS ORDERED: NORepinephrine 8MG/250 ML (PMX 250 ML ONE (22:14)
[2018-09-19] VITALS (103 sets, daily range): BP systolic 76–185; BP diastolic 51–123; PULSE 57–90; RESP 8–22
[2018-09-19] MEDS ORDERED: SOD CHLORIDE 0.9% 1,000 ML IV ONE
[2018-09-19] MEDS ORDERED: SOD CHLORIDE 0.9% 250 ML IV ONE
[2018-09-19] MEDS ORDERED: LIDOCAINE 1% (MPF) 5 ML VIAL SC ONE (01:30)
[2018-09-19] MEDS: CEFTRIAXONE 1 GM/50 ML (PMX) 50 ML IVPB SCH (03:30)
[2018-09-19] MEDS ORDERED: VANCOMYCIN IV PER PHARMACY XX SCH (04:30)
[2018-09-19] MEDS: PANTOPRAZOLE 40 MG INJ IV SCH (05:38)
[2018-09-19] MEDS: DEXTROSE 5%-0.45% NACL 1,000 ML IV SCH ×2 (05:42→19:26)
[2018-09-19] MEDS ORDERED: VANCOMYCIN 750 MG (PMX) 250 ML IVPB SCH (06:00)
[2018-09-19] MEDS ORDERED: VANCOMYCIN 1 GM 250 ML IVPB SCH (06:00)
--- NOTE | 2018-09-19 07:12 | EEG ---
EEG NOTE Report Details DATE OF TEST: 09/18/18 HISTORY: The patient is a 58-year-old F who presents with altered mental status. This EEG is requested to rule out nonconvulsive status epilepticus. SEDATION: None. CONDITIONS OF RECORDING: This EEG was recorded digitally on the Gust machine, using the International 10-20 System of electrodes plus anterior temporals and Nz. STATES SAMPLED: Obtunded. FINDINGS: The background is discontinuous, though grossly symmetric... Continuous intervals are predominated by polymorphic theta and delta. The normal [id number] frequency-amplitude gradient was absent. Photic stimulation does not elicit any definite driving responses or epileptiform discharges. Hyperventilation was not performed. No epileptiform discharges were seen. IMPRESSION: Abnormal electroencephalogram due to: severe diffuse slowing. COMMENT: The slowing of the background indicates severe, diffuse cortical dysfunction of nonspecific etiology. CA ZURITA Sep 19, 2018 07:12
[2018-09-19] MEDS: PROPOFOL 100 ML IV SCH ×2 (09:00→21:00)
[2018-09-19] MEDS: HEPARIN 5,000 UNIT/1 ML VIAL SC SCH ×2 (09:58→21:19)
[2018-09-19] MEDS: LEVETIRACETAM 500 MG (PMX) 100 ML IVPB SCH (09:58)
[2018-09-19] MEDS ORDERED: BALSAM PERU/CASTOR OIL 60 GM TUBE TOP SCH (10:30)
--- NOTE | 2018-09-19 11:21 | PN ---
Date/Time of Note Date/Time of Note DATE: 09/19/18 TIME: 11:06 Assessment/Plan VTE Prophylaxis Risk score (from Ns)>0 risk: 6 SCD applied (from Ns): Yes Pharmacological prophylaxis: heparin Lines/Catheters IV Catheter Type (from Nrsg): Intraosseous Central line still needed: Yes Urinary Cath still in place: Yes Reason Cath still needed: other (indicate) Assessment/Plan Hospital Course S: Patient got intubated yesterday due to inability to protect her airway secondary to antiseizure medication which was required for ongoing seizures. Intubation was prophylactic. She is maintaining the intensive care unit now on ventilator support. She remains sedated only from antiseizure medications. Perez ses have noted milky urine in copious amounts coming from Prince catheter, patient also had episodes of hypothermia yesterday. She has been put on a Eliceo hugger, with improvement. O: Constitutional: sleeping, will barely open eyes with aggressive stimulation, no seizure like activity Head: atraumatic, normocephalic, NC Neck: non-tender, supple Respiratory: coarse Cardiovascular: regular rate and rhythm Gastrointestinal: S/ NT / ND / +BS Extremities: no edema, good radial pulses, frail, assessment and Plan: 58 yo F with a slow early onset dementia, cause unknown who is non verbal at baseline who was brought in for abnormal jerking behavior concerning for seizures 1. Altered mentation with new onset seizures -acute on chronic -Brain CT at outside hospital negative per report -1st EEG confirms ongoing seizure while on keppra -Repeat EEG after phenobarbital therapy should abnormal electroencephalogram due to severe diffuse slowing. -MRI of the brain with and without contrast showed chronic parietal and frontal lobe cysts. 2. Sespis 2/2 Nitrite + Urinary tract infection ? -was not present on admission -multiorganism -continue empiric abx, continue to monitor cultures 3. Chronic dementia/encephalopathy, -nonverbal and bedbound at baseline. Of gradual onset, no organic cause found despite extensive workup per -cared for at home by and children 24hours 4. 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 5. Chronic dyslipidemia 6. Chronic hypertension 7. Chronic psychiatric d/c on risperdone with benztropine for tardive dyskinesia ? -dose of benztropine recently reduced 8. Respiratory failure s/p prophylactic intubation 2/2 encephalopathy -appreciate pulm input -continue vent support for now Plan : -At this time continue ICU monitoring and management -Await neurology review and recommendations for today -Continue antibiotics and antifungal and follow-up blood as well as repeat urine cultures commence tube feeds -Commence tube feeds -Continue serial labs and close monitoring -Further interventions will depend on clinical course -POC discussed in detail with . Care time 40mins Result Diagram: 09/19/18 0438 09/19/18 0438 Results 24hrs Laboratory Tests Test 09/18/18 11:28 09/18/18 18:17 09/18/18 20:20 09/19/18 00:04 Phenytoin 27.0 *H (Dilantin) Level Bedside Glucose 153 Blood Gas Blood arterial Specimen Source Arterial Blood 09/18/2018 8:50:47 Date Drawn PM Arterial Blood 7.400 pH (Temp corrected) Arterial Blood 26.4 L pCO2 (Temp correct) Arterial Blood 625.9 H pO2 (Temp corrected) Arterial Blood 16.0 L HCO3 Arterial Blood -7.2 L Base Excess Arterial Blood 99.5 H Oxygen Saturatio n Tino Test ACCEPTAB Arterial Blood Right Radial Gas Puncture Site Arterial 0.3 Blood Carboxyhem oglobin Arterial Blood 0.4 Methemoglobin Blood Gas A-a O2 60.7 H Differential Oxyhemoglobin 98.8 Percent Blood Gas 37.0 Temperature Blood Gas 14.0 Respiration Rate Blood Gas Actual 14 Respiration Rate Blood Gas VENT - AC Modality FiO2 100.0 Blood Gas Tidal 450.0 Volume Blood Gas Low 5.0 PEEP Setting Blood Gas 23.0 Inspiratory Pressure Blood Gas MG Notified Whom Blood Gas 09/18/2018 8:59:41 Notified Time PM Lactic Acid 1.5 Level Test 09/19/18 04:38 09/19/18 07:00 09/19/18 07:10 White Blood 12.0 H Count Red Blood Count 3.70 L Hemoglobin 11.7 L Hematocrit 32.5 L Mean Corpuscular 87.8 Volume Mean Corpuscular 31.6 Hemoglobin Mean Corpuscular 36.0 Hemoglobin Pepper nt Red Cell 11.7 Distribution Width Platelet Count 290 Mean Platelet 8.9 Volume Immature 0.300 Granulocytes % Neutrophils % 81.7 H Lymphocytes % 10.9 L Monocytes % 6.2 Eosinophils % 0.6 Basophils % 0.3 Nucleated Red 0.0 Blood Cells % Immature 0.040 H Granulocytes # Neutrophils # 9.8 H Lymphocytes # 1.3 Monocytes # 0.7 Eosinophils # 0.1 Basophils # 0.0 Nucleated Red 0.0 Blood Cells # Sodium Level 133 L Potassium Level 3.7 Chloride Level 111 H Carbon Dioxide 17 L Level Anion Gap 5 Blood Urea 3 L Nitrogen Creatinine 0.28 L Est Glomerular > 60 Filtrat Rate mL/min Glucose Level 201 # Calcium Level 8.3 L Phenytoin 19.2 (Dilantin) Level Blood Gas Blood arterial Specimen Source Arterial Blood 09/19/2018 7:10:56 Date Drawn AM Arterial Blood 7.399 pH (Temp corrected) Arterial Blood 27.8 L pCO2 (Temp correct) Arterial Blood 214.3 H pO2 (Temp corrected) Arterial Blood 16.8 L HCO3 Arterial Blood -6.7 L Base Excess Arterial Blood 98.8 H Oxygen Saturatio n Tino Test ACCEPTAB Arterial Blood Right Radial Gas Puncture Site Arterial 0.3 Blood Carboxyhem oglobin Arterial Blood 0.2 Methemoglobin Blood Gas A-a O2 38.9 H Differential Oxyhemoglobin 98.3 Percent Blood Gas 37.0 Temperature Blood Gas 14.0 Respiration Rate Blood Gas Actual 14 Respiration Rate Blood Gas VENT - AC Modality FiO2 40.0 Blood Gas Tidal 400.0 Volume Blood Gas Low 5.0 PEEP Setting Blood Gas TM Notified Whom Blood Gas 09/19/2018 7:27:04 Notified Time AM Lactic Acid 1.6 Level Exam/Review of Systems Exam Vitals Vital Signs Date Temp Pulse Resp B/P (MAP) Pulse Ox O2 O2 Flow FiO2 Time Delivery Rate 09/19/18 40 10:35 09/19/18 73 08:00 09/19/18 14 86/67 (73) 06:15 09/19/18 Mechanical 06:00 Ventilator 09/19/18 100 05:10 09/19/18 93.6 04:00 09/18/18 2.0 09:01 Intake and Output 09/18/18 09/18/18 09/19/18 1515:00 23:00 07:00 IntakeIntake Total 0 ml 569 ml 793.25 ml OutputOutput Total 1450 ml 1390 ml BalanceBalance 0 ml -881 ml -596.75 ml Results Results 24hrs Laboratory Tests Test 09/18/18 11:28 09/18/18 18:17 09/18/18 20:20 09/19/18 00:04 Phenytoin 27.0 *H (Dilantin) Level Bedside Glucose 153 Blood Gas Blood arterial Specimen Source Arterial Blood 09/18/2018 8:50:47 Date Drawn PM Arterial Blood 7.400 pH (Temp corrected) Arterial Blood 26.4 L pCO2 (Temp correct) Arterial Blood 625.9 H pO2 (Temp corrected) Arterial Blood 16.0 L HCO3 Arterial Blood -7.2 L Base Excess Arterial Blood 99.5 H Oxygen Saturatio n Tino Test ACCEPTAB Arterial Blood Right Radial Gas Puncture Site Arterial 0.3 Blood Carboxyhem oglobin Arterial Blood 0.4 Methemoglobin Blood Gas A-a O2 60.7 H Differential Oxyhemoglobin 98.8 Percent Blood Gas 37.0 Temperature Blood Gas 14.0 Respiration Rate Blood Gas Actual 14 Respiration Rate Blood Gas VENT - AC Modality FiO2 100.0 Blood Gas Tidal 450.0 Volume Blood Gas Low 5.0 PEEP Setting Blood Gas 23.0 Inspiratory Pressure Blood Gas MG Notified Whom Blood Gas 09/18/2018 8:59:41 Notified Time PM Lactic Acid 1.5 Level Test 09/19/18 04:38 09/19/18 07:00 09/19/18 07:10 White Blood 12.0 H Count Red Blood Count 3.70 L Hemoglobin 11.7 L Hematocrit 32.5 L Mean Corpuscular 87.8 Volume Mean Corpuscular 31.6 Hemoglobin Mean Corpuscular 36.0 Hemoglobin Pepper nt Red Cell 11.7 Distribution Width Platelet Count 290 Mean Platelet 8.9 Volume Immature 0.300 Granulocytes % Neutrophils % 81.7 H Lymphocytes % 10.9 L Monocytes % 6.2 Eosinophils % 0.6 Basophils % 0.3 Nucleated Red 0.0 Blood Cells % Immature 0.040 H Granulocytes # Neutrophils # 9.8 H Lymphocytes # 1.3 Monocytes # 0.7 Eosinophils # 0.1 Basophils # 0.0 Nucleated Red 0.0 Blood Cells # Sodium Level 133 L Potassium Level 3.7 Chloride Level 111 H Carbon Dioxide 17 L Level Anion Gap 5 Blood Urea 3 L Nitrogen Creatinine 0.28 L Est Glomerular > 60 Filtrat Rate mL/min Glucose Level 201 # Calcium Level 8.3 L Phenytoin 19.2 (Dilantin) Level Blood Gas Blood arterial Specimen Source Arterial Blood 09/19/2018 7:10:56 Date Drawn AM Arterial Blood 7.399 pH (Temp corrected) Arterial Blood 27.8 L pCO2 (Temp correct) Arterial Blood 214.3 H pO2 (Temp corrected) Arterial Blood 16.8 L HCO3 Arterial Blood -6.7 L Base Excess Arterial Blood 98.8 H Oxygen Saturatio n Tino Test ACCEPTAB Arterial Blood Right Radial Gas Puncture Site Arterial 0.3 Blood Carboxyhem oglobin Arterial Blood 0.2 Methemoglobin Blood Gas A-a O2 38.9 H Differential Oxyhemoglobin 98.3 Percent Blood Gas 37.0 Temperature Blood Gas 14.0 Respiration Rate Blood Gas Actual 14 Respiration Rate Blood Gas VENT - AC Modality FiO2 40.0 Blood Gas Tidal 400.0 Volume Blood Gas Low 5.0 PEEP Setting Blood Gas TM Notified Whom Blood Gas 09/19/2018 7:27:04 Notified Time AM Lactic Acid 1.6 Level Medications Medication Current Medications IV Flush (NS 3 ml) 3 ml PER PROTOCOL IV ; Start 09/17/18 at 03:30 Ondansetron HCl (Zofran Inj) 4 mg Q6H PRN IV NAUSEA/VOMITING; Start 09/17/18 at 03:30 Acetaminophen (Tylenol Tab) 650 mg Q6H PRN PO .PAIN 1-3 OR TEMP; Start 09/17/18 at 03:30 Acetaminophen/ Hydrocodone Bitart (Buhler (5/325)) 1 tab Q6H PRN PO .MOD PAIN 4- 6; Start 09/17/18 at 03:30 Morphine Sulfate (morphine SULFATE (PF)) 2 mg Q4H PRN IV .SEVERE PAIN 7-10; Start 09/17/18 at 03:30 Docusate Sodium (Colace) 100 mg Q12H PRN PO .CONSTIPATION; Start 09/17/18 at 03:30 Magnesium Hydroxide (Milk Of Mag) 30 ml DAILY PRN PO .CONSTIPATION; Start 09/17/18 at 03:30 Pantoprazole (Protonix Iv) 40 mg DAILY@06 IV Last administered on 09/19/18at 05:38; Admin Dose 40 MG; Start 09/17/18 at 06:00 Heparin Sodium (Porcine) (Heparin (5000 Units/1ml)) 5,000 unit Q12 SC Last administered on 09/19/18at 09:58; Admin Dose 5,000 UNIT; Start 09/17/18 at 09:00 Albuterol/ Ipratropium (Duoneb) 3 ml Q4H RESP THERAPY PRN HHN SHORTNESS OF BREATH; Start 09/17/18 at 03:30 Hydralazine HCl (Apresoline) 10 mg Q6H PRN IV ELEVATED BLOOD PRESSURE; Start 09/17/18 at 03:30 Ceftriaxone Sodium 50 ml @ 100 mls/hr Q24H IVPB Last administered on 09/19/18at 03:30; Admin Dose 100 MLS/HR; Start 09/17/18 at 03:30 Nitroglycerin (Nitroglycerin (Sl Tab) 0.4 Mg) 1 tab Q5M PRN SL ANGINA; Start 09/17/18 at 03:30 Lorazepam (Ativan) 1 mg Q2H PRN IV SEIZURES Last administered on 09/17/18at 03:57; Admin Dose 1 MG; Start 09/17/18 at 03:30 Miscellaneous Information (Pending [facility] Order For Wound Care) This patient goel... PRN PRN XX WOUND CARE; Start 09/17/18 at 05:00 Levetiracetam 100 ml @ 400 mls/hr Q12 IVPB Last administered on 09/19/18at 09:58; Admin Dose 400 MLS/HR; Start 09/18/18 at 07:30 Dextrose/Sodium Chloride 1,000 ml @ 75 mls/hr [id number] IV Last administered on 09/19/18at 05:42; Admin Dose 75 MLS/HR; Start 09/18/18 at 17:00 Propofol 100 ml @ 1.227 mls/ hr Q12H IV ; Start 09/18/18 at 21:00 Norepinephrine 250 ml @ 1.875 mls/ hr TITRATE IV Last administered on 09/18/18at 21:00; Admin Dose 1.875 MLS/HR; Start 09/18/18 at 23:00 DYLAN RAMOS Sep 19, 2018 11:16
--- NOTE | 2018-09-19 11:23 | CONS ---
DATE OF ADMISSION: 09/16/2018 DATE OF CONSULTATION: REASON FOR CONSULT: Mechanical ventilation. HISTORY OF PRESENT ILLNESS: This is an unfortunate 58-year-old lady with advanced dementia, original ly admitted on 09/17/2018 with altered mental status and seizures. The patient had seizures diagnose d approximately 1 month ago, per her at bedside today. Yesterday, she had a further seizure, became more altered with respiratory distress requiring emergent intubation and initiation of vasopr essor support with subsequent transfer to intensive care unit. Chest x-ray, however, demonstrates no significant infiltrates or effusions. PAST MEDICAL HISTORY: 1. Advanced dementia. 2. West Nile virus infection. 3. Significant debilitation. 4. Seizure history. MEDICATIONS: Per chart. ALLERGIES: NONE. SOCIAL HISTORY: Nonsmoker, no alcohol, no history of drug use. FAMILY HISTORY: Noncontributory. SYSTEMS REVIEW: A 12-point review of systems unable to perform. PHYSICAL EXAMINATION: GENERAL: Elderly, chronically ill-appearing lady, orally intubated on mechanical ventilation. VITAL SIGNS: Currently afebrile, pulse is 70, blood pressure 96/70 on Levophed. NECK: Supple. No JVD, lymphadenopathy. CARDIAC: S1, S2, no added sounds or murmurs. CHEST: Diminished air entry bilaterally. ABDOMEN: Soft, nontender. No guarding or rebound. EXTREMITIES: No cyanosis, clubbing, or edema. NEUROLOGIC: Unable to assess, currently sedated. LABORATORY DATA: White count 12.0, hemoglobin 11.7, platelets of 290, BUN 3, creatinine 0.28. INR w as 0.99. Arterial blood gas pH was 7.39, pCO2 of 28, pO2 of 215, with a bicarbonate of 16.8. DIAGNOSTIC DATA: Chest x-ray showed no infiltrates or effusions. MRI of the brain demonstrated no a cute intracranial abnormalities. IMPRESSION AND PLAN: 1. Further seizure with altered mental status requiring intubation for airway protection. 2. Metabolic acidosis likely secondary to hypoperfusion. 3. Significant lactic acidosis with evidence of septic shock given hypotension and vasopressor suppo rt. The patient will require: 1. Continue fluid resuscitation. 2. Intravenous antibiotics pending culture results. 3. Continue antiepileptics. 4. EEG evaluation and neurology recommendations. 5. DVT and GI prophylaxis. Dictated By: JODI MOY MD SV/REBEKAH Conf#: [id number] [facility]#: [id number]
[2018-09-19] MEDS: FLUCONAZOLE 200 MG (PMX) 100 ML IVPB SCH (12:25)
--- NOTE | 2018-09-19 14:42 | CONS ---
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 She was additionally reported to have a seizure... for which neurology is co nsulted. Most clinically consistent with new onset epilepsy. Initial EEG was notable for GPEDs and an electrographic seizure originating in the R temporal region.. s/p Dilantin load, with ongoing episodic staring spells (presumed seizures) noted clinically.. s/p Phenobarbital load on 09/18..with resolution of episodes suspicious for seizure P: Await MRI brain with and without contrast for further characterization Await phb level; start 30 mg bid maintenance for now.. Hold Keppra and Dilantin for now Limit other sedating medications where possible Other medical management per primary Will follow clinically Consultation Date/Type/Reason Admit Date/Time Sep 16, 2018 at 22:12 Type of Consult Neurology Requesting Provider: ANGELLA PERRIN Date/Time of Note DATE: 09/19/18 TIME: 14:37 24 HR Interval Summary Free Text/Dictation Tx to icu.. s/p phb load.. now on levo Subjective hx not possible: pt non-verbal, pt critical Exam Vital Signs Vitals Vital Signs Date Temp Pulse Resp B/P (MAP) Pulse Ox O2 O2 Flow FiO2 Time Delivery Rate 09/19/18 77 13 123/85 100 Mechanical 13:00 (98) Ventilator 09/19/18 40 12:20 09/19/18 98.0 12:00 09/18/18 2.0 09:01 Intake and Output 09/18/18 09/18/18 09/19/18 1515:00 23:00 07:00 IntakeIntake Total 0 ml 569 ml 793.25 ml OutputOutput Total 1450 ml 1420 ml BalanceBalance 0 ml -881 ml -626.75 ml Exam PE: Gen Appearance: No Apparent Distress HEENT: Intubated Cardiovascular: Regular rate Abdomen: Soft Extremities: Dry NE: The patient was comatose. Cranial nerve examination was limited by mental status. Pupils were equal and reactive to light. There was no afferent pupillary defect. Funduscopic examination was limited. Face was grossly symmetric, w/ present corneal and cough reflexes. Tone was normal. Muscle bulk was normal. I did not see fasciculations. The patient withdrew to noxious stimulation in her LE. Coordination and gait testing was limited by mental status. Arm and leg reflexes were within normal limits and symmetric. Hudson's sign was absent. Plantar responses were flexor. CA ZURITA Sep 19, 2018 14:42
[2018-09-19] MEDS: COLLAGENASE 5 GM (UD JAR) TOP SCH (14:52)
--- NOTE | 2018-09-19 15:34 | CONS ---
DATE OF ADMISSION: 09/16/2018 DATE OF CONSULTATION: 09/19/2018 TYPE OF CONSULTATION: Infectious disease. REASON FOR CONSULTATION: Antibiotic management. HISTORY OF PRESENT ILLNESS: Emily Pickett is a 58-year-old female, who comes in with altered me ntal status and new seizures. The patient was transferred from an outside hospital. Her past proble ms include: 1. Severe dementia. The patient is bedridden and nonverbal, cared for at home by her . She was brought in from an outside hospital ER with altered mental status. She apparently also had some subjective fevers at home recently. The family found the patient less responsive on the day prior to admission, the 2nd, with possible seizure activity, which the patient had never had. She received V ersed in the ER and transferred probably to the ICU where she was found to have a sodium of 127, whit e count of 11,000. Lactic acid of 8.4. She received 2 liters of IV fluids because of low blood pres sure and came back to her baseline blood pressure. She was also found to have a UTI at the outside ospital. She received Keppra 500 mg IV piggyback and was transferred to [facility]. She goel s a history of West Nile virus infection or other problems include hypercholesterolemia and hypertens ion. PAST MEDICAL HISTORY: As outlined. FAMILY HISTORY: Positive for Alzheimer disease in the mother. SOCIAL HISTORY: She does not smoke, drink or abuse drugs. ALLERGIES: NONE TO PENICILLIN, SULFA OR FOODS. MEDICATIONS: Per chart. REVIEW OF SYSTEMS: Noncontributory. LABORATORY: On admission, her white count was 11.2, H and H of 11.2 and 33, platelet count of 375. BUN and creatinine 4/0.89, glucose 147. Urinalysis shows positive nitrites and leukocyte esterase. CT scan of the head in the outside hospital showed no acute intracranial pathology. The patient was felt to have a UTI with loose onset of seizures. She was placed on broad spectrum antibiotics. She has been on ceftriaxone, but she has also been on Propofol, norepinephrine and fluconazole. The nore pinephrine to maintain her blood pressure. Chest x-ray on the was normal. Currently, she has an endotracheal tube and NG tube. There is a surgical clip overlying the right hilar region. No tamez e from prior chest x-ray done earlier today. The patient was seen by Dr. Islas. She has seizures diagnosed 1 month ago per her . She has advanced dementia ____ fever, significant debility, s eizure history. PHYSICAL EXAMINATION: GENERAL: The patient is a chronically ill-appearing female, who was intubated on mechanical ventilat ion, has an NG tube in place as well. SKIN: Without generalized rash. HEENT: Within normal limits. NECK: Supple. LYMPH NODES: None palpable. CHEST: Decreased breath sounds at the bases. HEART: Without murmur or gallop. ABDOMEN: Soft, nontender, without organosplenomegaly or masses. EXTREMITIES: Without cyanosis, clubbing, or edema. RECTAL AND GENITAL: Deferred. NEUROLOGIC: No focal neurological abnormality. She is currently sedated. ANCILLARY LABORATORY DATA: White count today is 12,000, hemoglobin 11.7, platelets 290,000. BUN and creatinine 3/0.28. We will continue her on current therapy. She has no fever at this point in time . Her urine culture was negative. Chest x-ray is negative. We may end up stopping the ceftriaxone shortly. I will dictate my findings to the hospitalist and the aforementioned consultants. Dictated By: SOLEDAD MARTINEZ MD, JD/REBEKAH Conf#: [id number] DID#: [id number] CC: ANGELLA PERRIN; JODI ISLAS MD; DYLAN RAMOS MD;*EndCC*
[2018-09-19] MEDS: NORepinephrine 8MG/250 ML (PMX 250 ML IV SCH (16:03)
[2018-09-19] MEDS: PHENOBARBITAL 65 MG INJ IV SCH ×2 (16:16→21:15)
[2018-09-20] VITALS (101 sets, daily range): BP systolic 70–121; BP diastolic 54–90; PULSE 80–108; RESP 0–25
[2018-09-20] MEDS: CEFTRIAXONE 1 GM/50 ML (PMX) 50 ML IVPB SCH (03:32)
[2018-09-20] MEDS: PANTOPRAZOLE 40 MG INJ IV SCH (06:10)
[2018-09-20] MEDS: PHENOBARBITAL 65 MG INJ IV SCH ×2 (08:43→20:43)
[2018-09-20] MEDS: HEPARIN 5,000 UNIT/1 ML VIAL SC SCH ×2 (08:44→20:44)
[2018-09-20] MEDS: COLLAGENASE 5 GM (UD JAR) TOP SCH (08:47)
[2018-09-20] MEDS: DEXTROSE 5%-0.45% NACL 1,000 ML IV SCH ×2 (08:50→22:32)
[2018-09-20] MEDS: PROPOFOL 100 ML IV SCH ×2 (09:00→20:44)
--- NOTE | 2018-09-20 11:06 | CONS ---
Consult Date/Type/Reason Admit Date/Time Sep 16, 2018 at 22:12 Initial Consult Date 09/18/18 Type of Consult Pulmonary Requesting Provider: ANGELLA PERRIN Date/Time of Note DATE: 09/20/18 TIME: 11:03 Subjective Patient remained stable this morning. No new events unresponsive on mechanical ventilation Objective Vital Signs Date Temp Pulse Resp B/P (MAP) Pulse Ox O2 O2 Flow FiO2 Time Delivery Rate 09/20/18 97.0 81 14 100/76 100 Mechanical 08:00 (84) Ventilator 09/20/18 30 08:00 09/18/18 2.0 09:01 Intake and Output 09/19/18 09/19/18 09/20/18 1515:00 23:00 07:00 IntakeIntake Total 748.75 ml 950.00 ml 1040.00 ml OutputOutput Total 420 ml 440 ml 390 ml BalanceBalance 328.75 ml 510.00 ml 650.00 ml Exam PHYSICAL EXAMINATION: GENERAL: Elderly, chronically ill-appearing lady, orally intubated on mechanical ventilation. VITAL SIGNS: NECK: Supple. No JVD, lymphadenopathy. CARDIAC: S1, S2, no added sounds or murmurs. CHEST: Diminished air entry bilaterally. ABDOMEN: Soft, nontender. No guarding or rebound. EXTREMITIES: No cyanosis, clubbing, or edema. NEUROLOGIC: Unable to assess, currently sedated. Vent Setting Ventilator Support Mode: AC Fraction of Inspired Oxygen pe: 30 Positive End Expiratory Pressu: 5.0 Results/Medications Result Diagram: 09/20/18 0559 09/20/18 0521 Results 24 hrs Laboratory Tests Test 09/20/18 05:21 09/20/18 05:59 Sodium Level 136 Potassium Level 3.9 Chloride Level 110 Carbon Dioxide Level 16 L Anion Gap 10 # Blood Urea Nitrogen 3 L Creatinine 0.62 Est Glomerular Filtrat Rate mL/min > 60 Glucose Level 159 Calcium Level 8.5 White Blood Count 12.0 H Red Blood Count 4.00 L Hemoglobin 12.8 Hematocrit 36.3 L Mean Corpuscular Volume 90.8 Mean Corpuscular Hemoglobin 32.0 Mean Corpuscular Hemoglobin Concent 35.3 Red Cell Distribution Width 12.5 Platelet Count 257 Mean Platelet Volume 8.6 Immature Granulocytes % 0.300 Neutrophils % 76.1 Lymphocytes % 10.1 L Monocytes % 11.6 H Eosinophils % 1.6 Basophils % 0.3 Nucleated Red Blood Cells % 0.0 Immature Granulocytes # 0.040 H Neutrophils # 9.1 H Lymphocytes # 1.2 Monocytes # 1.4 H Eosinophils # 0.2 Basophils # 0.0 Nucleated Red Blood Cells # 0.0 Medications Current Medications IV Flush (NS 3 ml) 3 ml PER PROTOCOL IV ; Start 09/17/18 at 03:30 Ondansetron HCl (Zofran Inj) 4 mg Q6H PRN IV NAUSEA/VOMITING; Start 09/17/18 at 03:30 Acetaminophen (Tylenol Tab) 650 mg Q6H PRN PO .PAIN 1-3 OR TEMP; Start 09/17/18 at 03:30 Acetaminophen/ Hydrocodone Bitart ([place] (5/325)) 1 tab Q6H PRN PO .MOD PAIN 4- 6; Start 09/17/18 at 03:30 Morphine Sulfate (morphine SULFATE (PF)) 2 mg Q4H PRN IV .SEVERE PAIN 7-10; Start 09/17/18 at 03:30 Docusate Sodium (Colace) 100 mg Q12H PRN PO .CONSTIPATION; Start 09/17/18 at 03:30 Magnesium Hydroxide (Milk Of Mag) 30 ml DAILY PRN PO .CONSTIPATION; Start 09/17/18 at 03:30 Pantoprazole (Protonix Iv) 40 mg DAILY@06 IV Last administered on 09/20/18at 06:10; Admin Dose 40 MG; Start 09/17/18 at 06:00 Heparin Sodium (Porcine) (Heparin (5000 Units/1ml)) 5,000 unit Q12 SC Last administered on 09/20/18at 08:44; Admin Dose 5,000 UNIT; Start 09/17/18 at 09:00 Albuterol/ Ipratropium (Duoneb) 3 ml Q4H RESP THERAPY PRN HHN SHORTNESS OF BREATH; Start 09/17/18 at 03:30 Hydralazine HCl (Apresoline) 10 mg Q6H PRN IV ELEVATED BLOOD PRESSURE; Start 09/17/18 at 03:30 Ceftriaxone Sodium 50 ml @ 100 mls/hr Q24H IVPB Last administered on 09/20/18at 03:32; Admin Dose 100 MLS/HR; Start 09/17/18 at 03:30 Nitroglycerin (Nitroglycerin (Sl Tab) 0.4 Mg) 1 tab Q5M PRN SL ANGINA; Start 09/17/18 at 03:30 Lorazepam (Ativan) 1 mg Q2H PRN IV SEIZURES Last administered on 09/17/18at 03:57; Admin Dose 1 MG; Start 09/17/18 at 03:30 Miscellaneous Information (Pending Santyl Order For Wound Care) This patient goel... PRN PRN XX WOUND CARE; Start 09/17/18 at 05:00 Dextrose/Sodium Chloride 1,000 ml @ 75 mls/hr [id number] IV Last administered on 09/20/18at 08:50; Admin Dose 75 MLS/HR; Start 09/18/18 at 17:00 Propofol 100 ml @ 1.227 mls/ hr Q12H IV ; Start 09/18/18 at 21:00 Norepinephrine 250 ml @ 1.875 mls/ hr TITRATE IV Last administered on 09/19/18at 16:03; Admin Dose 11.25 MLS/HR; Start 09/18/18 at 23:00 Fluconazole 100 ml @ 100 mls/hr Q24H IVPB Last administered on 09/19/18at 12:25; Admin Dose 100 MLS/HR; Start 09/19/18 at 12:00 Collagenase (Santyl) 1 applic DAILY TOP Last administered on 09/20/18at 08:47; Admin Dose 1 APPLIC; Start 09/19/18 at 11:30 IV Flush (NS 10 ml) 10 ml PRN PRN IV IV PROTOCOL; Start 09/19/18 at 15:00 Phenobarbital (Luminal) 30 mg Q12 IV Last administered on 09/20/18at 08:43; Admin Dose 30 MG; Start 09/19/18 at 15:00 Assessment/Plan Hospital Course (Demo Recall) IMPRESSION 1. Further seizure with altered mental status requiring intubation for airway protection. 2. Metabolic acidosis likely secondary to hypoperfusion. 3. Significant lactic acidosis with evidence of septic shock given hypotension and vasopressor support. Plan 1. Continue fluid resuscitation. 2. Intravenous antibiotics pending culture results. 3. Continue antiepileptics. 4. EEG evaluation and neurology recommendations. MRI noted. 5. DVT and GI prophylaxis. family conference re goals of care. cc 40mins. JODI MOY MD, [facility] Sep 20, 2018 11:06
[2018-09-20] MEDS: FLUCONAZOLE 200 MG (PMX) 100 ML IVPB SCH (11:39)
--- NOTE | 2018-09-20 13:29 | CONS ---
Assessment/Plan Assessment/Plan Hospital Course (Demo Recall) No acute events overnight patient is intubated sedated on Levophed drip in no distress she is hypothermic with a temperature of 97.5. WBC 12 H&H 12.8 and 36.3 platelets 257 neutrophils 76.1 BUN 30 creatinine 0.62 Microbiology: Blood culture grew gram-positive cocci urine culture remains nega tive sputum culture pending Indwelling: Endotracheal tube orogastric tube Prince catheter left upper extremity PICC line Antimicrobials: Fluconazole Rocephin Chest x-ray revealed clear lungs Physical examination: Well-developed chronically ill-appearing middle-aged woman who is intubated in no distress. Head atraumatic normocephalic. Sclera nonicteric. Neck is supple. Chest rise symmetrical, breath sounds diminished bases. Heart: S1-S2. Abdomen soft bowel sounds present, hypoactive. Ex tremities cyanotic with trace edema Assessment: 1. Septic shock 2. Gram-positive cocci bacteremia rule out contaminant 3. Respiratory failure 4. 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 Chronic encephalopathy Plan: Add vancomycin, send sputum culture, continue present care, neurology and pulmonary recommendations Consultation Date/Type/Reason Admit Date/Time Sep 16, 2018 at 22:12 Initial Consult Date 09/18/18 Type of Consult id Requesting Provider: ANGELLA PERRIN Date/Time of Note DATE: 09/20/18 TIME: 13:29 Exam/Review of Systems Exam Vitals Vital Signs Date Temp Pulse Resp B/P (MAP) Pulse Ox O2 O2 Flow FiO2 Time Delivery Rate 09/20/18 101 14 119/86 100 Mechanical 13:00 (97) Ventilator 09/20/18 97.5 12:00 09/20/18 30 08:00 09/18/18 2.0 09:01 Intake and Output 09/19/18 09/19/18 09/20/18 1515:00 23:00 07:00 IntakeIntake Total 748.75 ml 950.00 ml 1070.00 ml OutputOutput Total 420 ml 440 ml 490 ml BalanceBalance 328.75 ml 510.00 ml 580.00 ml Results Result Diagram: 09/20/18 0559 09/20/18 0521 Results 24hrs Laboratory Tests Test 09/20/18 05:21 09/20/18 05:59 Sodium Level 136 Potassium Level 3.9 Chloride Level 110 Carbon Dioxide Level 16 L Anion Gap 10 # Blood Urea Nitrogen 3 L Creatinine 0.62 Est Glomerular Filtrat Rate mL/min > 60 Glucose Level 159 Calcium Level 8.5 White Blood Count 12.0 H Red Blood Count 4.00 L Hemoglobin 12.8 Hematocrit 36.3 L Mean Corpuscular Volume 90.8 Mean Corpuscular Hemoglobin 32.0 Mean Corpuscular Hemoglobin Concent 35.3 Red Cell Distribution Width 12.5 Platelet Count 257 Mean Platelet Volume 8.6 Immature Granulocytes % 0.300 Neutrophils % 76.1 Lymphocytes % 10.1 L Monocytes % 11.6 H Eosinophils % 1.6 Basophils % 0.3 Nucleated Red Blood Cells % 0.0 Immature Granulocytes # 0.040 H Neutrophils # 9.1 H Lymphocytes # 1.2 Monocytes # 1.4 H Eosinophils # 0.2 Basophils # 0.0 Nucleated Red Blood Cells # 0.0 Medications Medication Current Medications IV Flush (NS 3 ml) 3 ml PER PROTOCOL IV ; Start 09/17/18 at 03:30 Ondansetron HCl (Zofran Inj) 4 mg Q6H PRN IV NAUSEA/VOMITING; Start 09/17/18 at 03:30 Acetaminophen (Tylenol Tab) 650 mg Q6H PRN PO .PAIN 1-3 OR TEMP; Start 09/17/18 at 03:30 Acetaminophen/ Hydrocodone Bitart ([place] (5/325)) 1 tab Q6H PRN PO .MOD PAIN 4- 6; Start 09/17/18 at 03:30 Morphine Sulfate (morphine SULFATE (PF)) 2 mg Q4H PRN IV .SEVERE PAIN 7-10; Start 09/17/18 at 03:30 Docusate Sodium (Colace) 100 mg Q12H PRN PO .CONSTIPATION; Start 09/17/18 at 03:30 Magnesium Hydroxide (Milk Of Mag) 30 ml DAILY PRN PO .CONSTIPATION; Start 09/17/18 at 03:30 Pantoprazole (Protonix Iv) 40 mg DAILY@06 IV Last administered on 09/20/18at 06:10; Admin Dose 40 MG; Start 09/17/18 at 06:00 Heparin Sodium (Porcine) (Heparin (5000 Units/1ml)) 5,000 unit Q12 SC Last administered on 09/20/18at 08:44; Admin Dose 5,000 UNIT; Start 09/17/18 at 09:00 Albuterol/ Ipratropium (Duoneb) 3 ml Q4H RESP THERAPY PRN HHN SHORTNESS OF BREATH; Start 09/17/18 at 03:30 Hydralazine HCl (Apresoline) 10 mg Q6H PRN IV ELEVATED BLOOD PRESSURE; Start 09/17/18 at 03:30 Ceftriaxone Sodium 50 ml @ 100 mls/hr Q24H IVPB Last administered on 09/20/18at 03:32; Admin Dose 100 MLS/HR; Start 09/17/18 at 03:30 Nitroglycerin (Nitroglycerin (Sl Tab) 0.4 Mg) 1 tab Q5M PRN SL ANGINA; Start 09/17/18 at 03:30 Lorazepam (Ativan) 1 mg Q2H PRN IV SEIZURES Last administered on 09/17/18 03:57; Admin Dose 1 MG; Start 09/17/18 at 03:30 Miscellaneous Information (Pending Santyl Order For Wound Care) This patient goel... PRN PRN XX WOUND CARE; Start 09/17/18 at 05:00 Dextrose/Sodium Chloride 1,000 ml @ 75 mls/hr [id number] IV Last administered on 09/20/18 08:50; Admin Dose 75 MLS/HR; Start 09/18/18 at 17:00 Propofol 100 ml @ 1.227 mls/ hr Q12H IV ; Start 09/18/18 at 21:00 Norepinephrine 250 ml @ 1.875 mls/ hr TITRATE IV Last administered on 09/19/18at 16:03; Admin Dose 11.25 MLS/HR; Start 09/18/18 at 23:00 Fluconazole 100 ml @ 100 mls/hr Q24H IVPB Last administered on 09/20/18at 11:39; Admin Dose 100 MLS/HR; Start 09/19/18 at 12:00 Collagenase (Santyl) 1 applic DAILY TOP Last administered on 09/20/18at 08:47; Admin Dose 1 APPLIC; Start 09/19/18 at 11:30 IV Flush (NS 10 ml) 10 ml PRN PRN IV IV PROTOCOL; Start 09/19/18 at 15:00 Phenobarbital (Luminal) 30 mg Q12 IV Last administered on 2/7/19at 08:43; Admin Dose 30 MG; Start 09/19/18 at 15:00 ZHANE TERAN NP Sep 20, 2018 13:29
[2018-09-20] MEDS: NORepinephrine 8MG/250 ML (PMX 250 ML IV SCH (14:09)
--- NOTE | 2018-09-20 15:10 | CONS ---
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 She was additionally reported to have a seizure... for which neurology is co nsulted. Most clinically consistent with new onset epilepsy. Initial EEG was notable for GPEDs and an electrographic seizure originating in the R temporal region.. s/p Dilantin load, with ongoing episodic staring spells (presumed seizures) noted clinically.. s/p Phenobarbital load on 09/18..with resolution of episodes suspicious for seizure MRI is unrevealing. P: Cont phb 30 mg bid maintenance for now.. Repeat EEG to evaluate for further epileptiform activity Hold Keppra and Dilantin for now Limit other sedating medications where possible Other medical management per primary Will follow clinically Consultation Date/Type/Reason Admit Date/Time Sep 16, 2018 at 22:12 Type of Consult Neurology Reason for Consultation new onset seizures Requesting Provider: ANGELLA PERRIN Date/Time of Note DATE: 09/20/18 TIME: 15:10 24 HR Interval Summary Free Text/Dictation Continues critical care. No changes in pt condition reported. No staring spells reported today. Subjective hx not possible: pt non-verbal, pt critical Exam Vital Signs Vitals Vital Signs Date Temp Pulse Resp B/P (MAP) Pulse Ox O2 O2 Flow FiO2 Time Delivery Rate 09/20/18 101 14 99/74 (82) 100 Mechanical 14:15 Ventilator 09/20/18 97.5 12:00 09/20/18 30 08:00 09/18/18 2.0 09:01 Intake and Output 09/19/18 09/19/18 09/20/18 1515:00 23:00 07:00 IntakeIntake Total 748.75 ml 950.00 ml 1070.00 ml OutputOutput Total 420 ml 440 ml 490 ml BalanceBalance 328.75 ml 510.00 ml 580.00 ml Exam PE: Gen Appearance: No Apparent Distress HEENT: Intubated Cardiovascular: Regular rate Abdomen: Soft Extremities: Dry NE: The patient was comatose. Cranial nerve examination was limited by mental status. Pupils were equal and reactive to light. There was no afferent pupillary defect. Funduscopic examination was limited. Face was grossly symmetric, w/ present corneal and cough reflexes. Tone was normal. Muscle bulk was diminished. I did not see fasciculations. The patient minimally withdrew to noxious stimulation in her LE. Coordination and gait testing was limited by mental status. Arm and leg reflexes were within normal limits and symmetric. Hudson's sign was absent. Plantar responses were flexor. SWEETIE NATARAJAN NP Sep 20, 2018 15:10
[2018-09-20] MEDS: VANCOMYCIN 750 MG (PMX) 250 ML IVPB SCH (16:50)
[2018-09-20] MEDS ORDERED: VANCOMYCIN IV PER PHARMACY XX SCH (17:00)
--- NOTE | 2018-09-20 18:36 | PN ---
Date/Time of Note Date/Time of Note DATE: 09/20/18 TIME: 08:31 Assessment/Plan VTE Prophylaxis Risk score (from Nsg)>0 risk: 8 SCD applied (from Ns): Yes Pharmacological prophylaxis: heparin Lines/Catheters IV Catheter Type (from Nrsg): PICC Line Central line still needed: Yes Urinary Cath still in place: Yes Reason Cath still needed: other (indicate) Assessment/Plan Hospital Course S: remains intubated and completely unresponsive, now on minimal pressor support O: Constitutional: unresponsive, antiseizures on board but no other sedation, p upils equal and sluggish Head: atraumatic, normocephalic, NC Neck: non-tender, supple Respiratory: coarse Cardiovascular: regular rate and rhythm Gastrointestinal: S/ NT / ND / +BS Extremities: no edema, good radial pulses, frail, assessment and Plan: 58 yo F with a slow early onset dementia, cause unknown who is non verbal at baseline who was brought in for abnormal jerking behavior concerning for seizures #Altered mentation with new onset seizures -acute on chronic -Brain CT at outside hospital negative per report -1st EEG confirms ongoing seizure while on keppra -Repeat EEG after phenobarbital therapy should abnormal electroencephalogram due to severe diffuse slowing. -MRI of the brain with and without contrast showed chronic parietal and frontal lobe cysts. #Respiratory failure s/p prophylactic intubation 2/2 encephalopathy -appreciate pulm input -continue vent support for now #Sespis 2/2 Nitrite + Urinary tract infection ? now in shock -was not present on admission -multiorganism -continue empiric abx, continue to monitor cultures # Chronic dementia/encephalopathy, -nonverbal and bedbound at baseline. Of gradual onset, no organic cause found despite extensive workup per -cared for at home by and children 24hours #History of West Nile virus infection, related to #3? #Chronic dyslipidemia #Chronic hypertension #Chronic psychiatric d/c on risperdone with benztropine for tardive dyskinesia ? -dose of benztropine recently reduced Plan : -At this time continue ICU monitoring and management -Await neurology review and recommendations for today -Continue antibiotics and antifungal and follow-up blood as well as repeat urine cultures -wean pressors as tolerated -Continue tube feeds -Continue serial labs and close monitoring -Further interventions will depend on clinical course -POC discussed with nursing staff and consultants Care time 40mins Result Diagram: 09/20/18 0559 09/20/18 0521 Results 24hrs Laboratory Tests Test 09/20/18 05:21 09/20/18 05:59 Sodium Level 136 Potassium Level 3.9 Chloride Level 110 Carbon Dioxide Level 16 L Anion Gap 10 # Blood Urea Nitrogen 3 L Creatinine 0.62 Est Glomerular Filtrat Rate mL/min > 60 Glucose Level 159 Calcium Level 8.5 White Blood Count 12.0 H Red Blood Count 4.00 L Hemoglobin 12.8 Hematocrit 36.3 L Mean Corpuscular Volume 90.8 Mean Corpuscular Hemoglobin 32.0 Mean Corpuscular Hemoglobin Concent 35.3 Red Cell Distribution Width 12.5 Platelet Count 257 Mean Platelet Volume 8.6 Immature Granulocytes % 0.300 Neutrophils % 76.1 Lymphocytes % 10.1 L Monocytes % 11.6 H Eosinophils % 1.6 Basophils % 0.3 Nucleated Red Blood Cells % 0.0 Immature Granulocytes # 0.040 H Neutrophils # 9.1 H Lymphocytes # 1.2 Monocytes # 1.4 H Eosinophils # 0.2 Basophils # 0.0 Nucleated Red Blood Cells # 0.0 Exam/Review of Systems Exam Vitals Vital Signs Date Temp Pulse Resp B/P (MAP) Pulse Ox O2 O2 Flow FiO2 Time Delivery Rate 09/20/18 91 14 108/75 100 18:15 (86) 09/20/18 97.6 16:00 09/20/18 Mechanical 15:45 Ventilator 09/20/18 30 15:20 09/18/18 2.0 09:01 Intake and Output 09/19/18 09/19/18 09/20/18 1515:00 23:00 07:00 IntakeIntake Total 748.75 ml 950.00 ml 1070.00 ml OutputOutput Total 420 ml 440 ml 490 ml BalanceBalance 328.75 ml 510.00 ml 580.00 ml Results Results 24hrs Laboratory Tests Test 09/20/18 05:21 09/20/18 05:59 Sodium Level 136 Potassium Level 3.9 Chloride Level 110 Carbon Dioxide Level 16 L Anion Gap 10 # Blood Urea Nitrogen 3 L Creatinine 0.62 Est Glomerular Filtrat Rate mL/min > 60 Glucose Level 159 Calcium Level 8.5 White Blood Count 12.0 H Red Blood Count 4.00 L Hemoglobin 12.8 Hematocrit 36.3 L Mean Corpuscular Volume 90.8 Mean Corpuscular Hemoglobin 32.0 Mean Corpuscular Hemoglobin Concent 35.3 Red Cell Distribution Width 12.5 Platelet Count 257 Mean Platelet Volume 8.6 Immature Granulocytes % 0.300 Neutrophils % 76.1 Lymphocytes % 10.1 L Monocytes % 11.6 H Eosinophils % 1.6 Basophils % 0.3 Nucleated Red Blood Cells % 0.0 Immature Granulocytes # 0.040 H Neutrophils # 9.1 H Lymphocytes # 1.2 Monocytes # 1.4 H Eosinophils # 0.2 Basophils # 0.0 Nucleated Red Blood Cells # 0.0 Medications Medication Current Medications IV Flush (NS 3 ml) 3 ml PER PROTOCOL IV ; Start 09/17/18 at 03:30 Ondansetron HCl (Zofran Inj) 4 mg Q6H PRN IV NAUSEA/VOMITING; Start 09/17/18 at 03:30 Acetaminophen (Tylenol Tab) 650 mg Q6H PRN PO .PAIN 1-3 OR TEMP; Start 09/17/18 at 03:30 Acetaminophen/ Hydrocodone Bitart ([place] (5/325)) 1 tab Q6H PRN PO .MOD PAIN 4- 6; Start 09/17/18 at 03:30 Morphine Sulfate (morphine SULFATE (PF)) 2 mg Q4H PRN IV .SEVERE PAIN 7-10; Start 09/17/18 at 03:30 Docusate Sodium (Colace) 100 mg Q12H PRN PO .CONSTIPATION; Start 09/17/18 at 03:30 Magnesium Hydroxide (Milk Of Mag) 30 ml DAILY PRN PO .CONSTIPATION; Start 09/17/18 at 03:30 Pantoprazole (Protonix Iv) 40 mg DAILY@06 IV Last administered on 09/20/18at 06: 10; Admin Dose 40 MG; Start 09/17/18 at 06:00 Heparin Sodium (Porcine) (Heparin (5000 Units/1ml)) 5,000 unit Q12 SC Last administered on 09/20/18at 08:44; Admin Dose 5,000 UNIT; Start 09/17/18 at 09:00 Albuterol/ Ipratropium (Duoneb) 3 ml Q4H RESP THERAPY PRN HHN SHORTNESS OF BREATH; Start 09/17/18 at 03:30 Hydralazine HCl (Apresoline) 10 mg Q6H PRN IV ELEVATED BLOOD PRESSURE; Start 09/17/18 at 03:30 Ceftriaxone Sodium 50 ml @ 100 mls/hr Q24H IVPB Last administered on 09/20/18 03:32; Admin Dose 100 MLS/HR; Start 09/17/18 at 03:30 Nitroglycerin (Nitroglycerin (Sl Tab) 0.4 Mg) 1 tab Q5M PRN SL ANGINA; Start 09/17/18 at 03:30 Lorazepam (Ativan) 1 mg Q2H PRN IV SEIZURES Last administered on 09/17/18 03:57; Admin Dose 1 MG; Start 09/17/18 at 03:30 Miscellaneous Information (Pending Santyl Order For Wound Care) This patient goel... PRN PRN XX WOUND CARE; Start 09/17/18 at 05:00 Dextrose/Sodium Chloride 1,000 ml @ 75 mls/hr [id number] IV Last administered on 09/20/18 08:50; Admin Dose 75 MLS/HR; Start 09/18/18 at 17:00 Propofol 100 ml @ 1.227 mls/ hr Q12H IV ; Start 09/18/18 at 21:00 Norepinephrine 250 ml @ 1.875 mls/ hr TITRATE IV Last administered on 09/20/18 14:09; Admin Dose 15 MLS/HR; Start 09/18/18 at 23:00 Fluconazole 100 ml @ 100 mls/hr Q24H IVPB Last administered on 09/20/18 11:39; Admin Dose 100 MLS/HR; Start 09/19/18 at 12:00 Collagenase (Santyl) 1 applic DAILY TOP Last administered on 09/20/18 08:47; Admin Dose 1 APPLIC; Start 09/19/18 at 11:30 IV Flush (NS 10 ml) 10 ml PRN PRN IV IV PROTOCOL; Start 09/19/18 at 15:00 Phenobarbital (Luminal) 30 mg Q12 IV Last administered on 09/20/18 08:43; Admin Dose 30 MG; Start 09/19/18 at 15:00 Vancomycin HCl (Vanco Iv Per Pharmacy) VANCOMYCIN PER PHARMACY PER PROTOCOL XX ; Start 09/20/18 at 17:00 Vancomycin/Sodium Chloride 250 ml @ 125 mls/hr Q24H IVPB Last administered on 2/7/19at 16:50; Admin Dose 125 MLS/HR; Start 09/20/18 at 17:00 DYLAN RAMOS Sep 20, 2018 18:35
[2018-09-21] VITALS (99 sets, daily range): BP systolic 78–163; BP diastolic 62–119; PULSE 78–100; RESP 8–19
[2018-09-21] MEDS: CEFTRIAXONE 1 GM/50 ML (PMX) 50 ML IVPB SCH (02:56)
[2018-09-21] MEDS: PANTOPRAZOLE 40 MG INJ IV SCH (05:12)
[2018-09-21] MEDS: POTASSIUM CHLORIDE 100 ML IVPB SCH ×3 (05:54→09:50)
[2018-09-21] MEDS ORDERED: MAGNESIUM SULFATE 3 GM in DEXTROSE 5% 100 ML IVPB ONE (06:00)
[2018-09-21] MEDS: COLLAGENASE 5 GM (UD JAR) TOP SCH (08:32)
[2018-09-21] MEDS: HEPARIN 5,000 UNIT/1 ML VIAL SC SCH ×2 (08:32→21:07)
[2018-09-21] MEDS: PHENOBARBITAL 65 MG INJ IV SCH (08:32)
--- NOTE | 2018-09-21 08:59 | EEG ---
EEG NOTE Report Details DATE OF TEST: 09/20/18 HISTORY: The patient is a 58-year-old F in coma. This EEG is requested to rule out nonconvulsive status epilepticus. SEDATION: None. CONDITIONS OF RECORDING: This EEG was recorded digitally on the [employer] machine, using the [employer] 10-20 System of electrodes plus anterior temporals and [place]. STATES SAMPLED: Comatose. FINDINGS: The background is discontinuous and symmetric. Rare and brief active intervals are predominated by polymorphic theta activity. The normal [id number] frequency-amplitude gradient was absent. Photic stimulation does not elicit any definite driving responses or epileptiform discharges. Hyperventilation was not performed. No asymmetries, focal abnormalities or epileptiform discharges were seen. IMPRESSION: Abnormal electroencephalogram due to: severe diffuse slowing. COMMENT: The slowing of the background indicates severe, diffuse cortical dysfunction of nonspecific etiology. CA ZURITA Sep 21, 2018 08:59
[2018-09-21] MEDS: PROPOFOL 100 ML IV SCH ×2 (09:00→19:37)
[2018-09-21] MEDS ORDERED: morphine 2 MG INJ IV PRN (11:30)
[2018-09-21] MEDS: DEXTROSE 5%-0.45% NACL 1,000 ML IV SCH (11:46)
--- NOTE | 2018-09-21 12:27 | CONS ---
Assessment/Plan Assessment/Plan Hospital Course (Demo Recall) No acute events overnight patient remains intubated on Levophed drip, no fevers WBC 11.2 platelets 166 no shift no bands BUN 6 creatinine 0.58 Microbiology: Blood culture growing staph species, urine culture negative, sputum culture growing gram-negative rods Antimicrobials: Vancomycin fluconazole Rocephin Indwelling: Endotracheal tube orogastric tube Prince catheter left upper extremity PICC line Physical examination: Well-developed chronically ill-appearing middle-aged woman who is intubated in no distress. Head atraumatic normocephalic. Sclera nonicteric. Neck is supple. Chest rise symmetrical, breath sounds diminished bases. Heart: S1-S2. Abdomen soft bowel sounds present, hypoactive. Extremities cyanotic with trace edema Assessment: 1. Septic shock 2. Gram-positive cocci bacteremia cw contaminant 3. Respiratory failure 4. 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 Chronic encephalopathy Plan: Clinically unchanged, we will will change Rocephin to cefepime, await for final cultures, continue present care, neurology and pulmonary recommendations Consultation Date/Type/Reason Admit Date/Time Sep 16, 2018 at 22:12 Initial Consult Date 09/18/18 Type of Consult id Requesting Provider: ANGELLA PERRIN Date/Time of Note DATE: 09/21/18 TIME: 12:26 Exam/Review of Systems Exam Vitals Vital Signs Date Temp Pulse Resp B/P (MAP) Pulse Ox O2 O2 Flow FiO2 Time Delivery Rate 09/21/18 84 14 98/72 (81) 100 11:45 09/21/18 Mechanical 11:00 Ventilator 09/21/18 97.3 08:00 09/21/18 30 08:00 09/18/18 2.0 09:01 Intake and Output 09/20/18 09/20/18 09/21/18 1515:00 23:00 07:00 IntakeIntake Total 1155.50 ml 1471.25 ml 1202.50 ml OutputOutput Total 1180 ml 1550 ml 1400 ml BalanceBalance -24.50 ml -78.75 ml -197.50 ml Results Result Diagram: 09/21/18 0445 09/21/18 0445 Results 24hrs Laboratory Tests Test 09/21/18 04:45 White Blood Count 11.2 H Red Blood Count 3.55 L Hemoglobin 11.1 L Hematocrit 31.8 L Mean Corpuscular Volume 89.6 Mean Corpuscular Hemoglobin 31.3 Mean Corpuscular Hemoglobin Concent 34.9 Red Cell Distribution Width 12.6 Platelet Count 166 # Mean Platelet Volume 10.0 Immature Granulocytes % 0.400 Neutrophils % 76.4 Lymphocytes % 10.5 L Monocytes % 9.2 Eosinophils % 3.0 Basophils % 0.5 Nucleated Red Blood Cells % 0.0 Immature Granulocytes # 0.050 H Neutrophils # 8.5 H Lymphocytes # 1.2 Monocytes # 1.0 H Eosinophils # 0.3 Basophils # 0.1 Nucleated Red Blood Cells # 0.0 Sodium Level 139 Potassium Level 2.6 *L Chloride Level 111 H Carbon Dioxide Level 24 Anion Gap 4 L Blood Urea Nitrogen 6 L Creatinine 0.58 Est Glomerular Filtrat Rate mL/min > 60 Glucose Level 148 Calcium Level 7.8 L Phosphorus Level 1.8 L Magnesium Level 1.5 L Medications Medication Current Medications IV Flush (NS 3 ml) 3 ml PER PROTOCOL IV ; Start 09/17/18 at 03:30 Ondansetron HCl (Zofran Inj) 4 mg Q6H PRN IV NAUSEA/VOMITING; Start 09/17/18 at 03:30 Acetaminophen (Tylenol Tab) 650 mg Q6H PRN PO .PAIN 1-3 OR TEMP; Start 09/17/18 at 03:30 Acetaminophen/ Hydrocodone Bitart ([place] (5/325)) 1 tab Q6H PRN PO .MOD PAIN 4- 6; Start 09/17/18 at 03:30 Docusate Sodium (Colace) 100 mg Q12H PRN PO .CONSTIPATION; Start 09/17/18 at 03:30 Magnesium Hydroxide (Milk Of Mag) 30 ml DAILY PRN PO .CONSTIPATION; Start 09/17/18 at 03:30 Pantoprazole (Protonix Iv) 40 mg DAILY@06 IV Last administered on 09/21/18at 05:12; Admin Dose 40 MG; Start 09/17/18 at 06:00 Heparin Sodium (Porcine) (Heparin (5000 Units/1ml)) 5,000 unit Q12 SC Last administered on 09/21/18at 08:32; Admin Dose 5,000 UNIT; Start 09/17/18 at 09:00 Albuterol/ Ipratropium (Duoneb) 3 ml Q4H RESP THERAPY PRN HHN SHORTNESS OF BREATH; Start 09/17/18 at 03:30 Hydralazine HCl (Apresoline) 10 mg Q6H PRN IV ELEVATED BLOOD PRESSURE; Start 09/17/18 at 03:30 Ceftriaxone Sodium 50 ml @ 100 mls/hr Q24H IVPB Last administered on 09/21/18at 02:56; Admin Dose 100 MLS/HR; Start 09/17/18 at 03:30 Nitroglycerin (Nitroglycerin (Sl Tab) 0.4 Mg) 1 tab Q5M PRN SL ANGINA; Start 09/17/18 at 03:30 Lorazepam (Ativan) 1 mg Q2H PRN IV SEIZURES Last administered on 09/17/18 03:57; Admin Dose 1 MG; Start 09/17/18 at 03:30 Miscellaneous Information (Pending Santyl Order For Wound Care) This patient goel... PRN PRN XX WOUND CARE; Start 09/17/18 at 05:00 Dextrose/Sodium Chloride 1,000 ml @ 75 mls/hr [id number] IV Last administered on 09/21/18at 11:46; Admin Dose 75 MLS/HR; Start 09/18/18 at 17:00 Propofol 100 ml @ 1.227 mls/ hr Q12H IV ; Start 09/18/18 at 21:00 Norepinephrine 250 ml @ 1.875 mls/ hr TITRATE IV Last administered on 09/20/18at 14:09; Admin Dose 15 MLS/HR; Start 09/18/18 at 23:00 Fluconazole 100 ml @ 100 mls/hr Q24H IVPB Last administered on 09/20/18at 11:39; Admin Dose 100 MLS/HR; Start 09/19/18 at 12:00 Collagenase (Santyl) 1 applic DAILY TOP Last administered on 09/21/18 08:32; Admin Dose 1 APPLIC; Start 09/19/18 at 11:30 IV Flush (NS 10 ml) 10 ml PRN PRN IV IV PROTOCOL; Start 09/19/18 at 15:00 Vancomycin HCl (Vanco Iv Per Pharmacy) VANCOMYCIN PER PHARMACY PER PROTOCOL XX ; Start 09/20/18 at 17:00 Vancomycin/Sodium Chloride 250 ml @ 125 mls/hr Q24H IVPB Last administered on 09/20/18at 16:50; Admin Dose 125 MLS/HR; Start 09/20/18 at 17:00 Morphine Sulfate (morphine) 2 mg Q4H PRN IV .SEVERE PAIN 7-10; Start 09/21/18 at 11:30 Miscellaneous Information (*Rx Drug Level Order Reminder*) VANCOMYCIN TROUGH 09/22 AT 1600 ONCE ONCE XX ; Start 09/22/18 at 16:00; Stop 09/22/18 at 16:01 ZHANE TERAN NP Sep 21, 2018 12:27
[2018-09-21] MEDS: FLUCONAZOLE 200 MG (PMX) 100 ML IVPB SCH (12:36)
--- NOTE | 2018-09-21 13:32 | CONS ---
Consult Date/Type/Reason Admit Date/Time Sep 16, 2018 at 22:12 Initial Consult Date 09/18/18 Type of Consult Pulmonary Requesting Provider: ANGELLA PERRIN Date/Time of Note DATE: 09/21/18 TIME: 13:29 Subjective Remains unresponsive on mechanical ventilation. Objective Vital Signs Date Temp Pulse Resp B/P (MAP) Pulse Ox O2 O2 Flow FiO2 Time Delivery Rate 09/21/18 79 12:00 09/21/18 14 98/72 (81) 100 11:45 09/21/18 Mechanical 11:00 Ventilator 09/21/18 97.3 08:00 09/21/18 30 08:00 09/18/18 2.0 09:01 Intake and Output 09/20/18 09/20/18 09/21/18 1515:00 23:00 07:00 IntakeIntake Total 1155.50 ml 1471.25 ml 1202.50 ml OutputOutput Total 1180 ml 1550 ml 1400 ml BalanceBalance -24.50 ml -78.75 ml -197.50 ml Exam PHYSICAL EXAMINATION: GENERAL: Elderly, chronically ill-appearing lady, orally intubated on mechanical ventilation. VITAL SIGNS: NECK: Supple. No JVD, lymphadenopathy. CARDIAC: S1, S2, no added sounds or murmurs. CHEST: Diminished air entry bilaterally. ABDOMEN: Soft, nontender. No guarding or rebound. EXTREMITIES: No cyanosis, clubbing, or edema. NEUROLOGIC: Unable to assess, currently sedated. Vent Setting Ventilator Support Mode: AC Fraction of Inspired Oxygen pe: 30 Positive End Expiratory Pressu: 5.0 Results/Medications Result Diagram: 09/21/185 09/21/185 Results 24 hrs Laboratory Tests Test 09/21/18 04:45 White Blood Count 11.2 H Red Blood Count 3.55 L Hemoglobin 11.1 L Hematocrit 31.8 L Mean Corpuscular Volume 89.6 Mean Corpuscular Hemoglobin 31.3 Mean Corpuscular Hemoglobin Concent 34.9 Red Cell Distribution Width 12.6 Platelet Count 166 # Mean Platelet Volume 10.0 Immature Granulocytes % 0.400 Neutrophils % 76.4 Lymphocytes % 10.5 L Monocytes % 9.2 Eosinophils % 3.0 Basophils % 0.5 Nucleated Red Blood Cells % 0.0 Immature Granulocytes # 0.050 H Neutrophils # 8.5 H Lymphocytes # 1.2 Monocytes # 1.0 H Eosinophils # 0.3 Basophils # 0.1 Nucleated Red Blood Cells # 0.0 Sodium Level 139 Potassium Level 2.6 *L Chloride Level 111 H Carbon Dioxide Level 24 Anion Gap 4 L Blood Urea Nitrogen 6 L Creatinine 0.58 Est Glomerular Filtrat Rate mL/min > 60 Glucose Level 148 Calcium Level 7.8 L Phosphorus Level 1.8 L Magnesium Level 1.5 L Medications Current Medications IV Flush (NS 3 ml) 3 ml PER PROTOCOL IV ; Start 09/17/18 at 03:30 Ondansetron HCl (Zofran Inj) 4 mg Q6H PRN IV NAUSEA/VOMITING; Start 09/17/18 at 03:30 Acetaminophen (Tylenol Tab) 650 mg Q6H PRN PO .PAIN 1-3 OR TEMP; Start 09/17/18 at 03:30 Acetaminophen/ Hydrocodone Bitart ([place] (5/325)) 1 tab Q6H PRN PO .MOD PAIN 4- 6; Start 09/17/18 at 03:30 Docusate Sodium (Colace) 100 mg Q12H PRN PO .CONSTIPATION; Start 09/17/18 at 03:30 Magnesium Hydroxide (Milk Of Mag) 30 ml DAILY PRN PO .CONSTIPATION; Start 09/17/18 at 03:30 Pantoprazole (Protonix Iv) 40 mg DAILY@06 IV Last administered on 09/21/18at 05:12; Admin Dose 40 MG; Start 09/17/18 at 06:00 Heparin Sodium (Porcine) (Heparin (5000 Units/1ml)) 5,000 unit Q12 SC Last administered on 09/21/18at 08:32; Admin Dose 5,000 UNIT; Start 09/17/18 at 09:00 Albuterol/ Ipratropium (Duoneb) 3 ml Q4H RESP THERAPY PRN HHN SHORTNESS OF BREATH; Start 09/17/18 at 03:30 Hydralazine HCl (Apresoline) 10 mg Q6H PRN IV ELEVATED BLOOD PRESSURE; Start 09/17/18 at 03:30 Nitroglycerin (Nitroglycerin (Sl Tab) 0.4 Mg) 1 tab Q5M PRN SL ANGINA; Start 09/17/18 at 03:30 Lorazepam (Ativan) 1 mg Q2H PRN IV SEIZURES Last administered on 09/17/18at 03:57; Admin Dose 1 MG; Start 09/17/18 at 03:30 Miscellaneous Information (Pending Santyl Order For Wound Care) This patient goel... PRN PRN XX WOUND CARE; Start 09/17/18 at 05:00 Dextrose/Sodium Chloride 1,000 ml @ 75 mls/hr [id number] IV Last administered on 09/21/18at 11:46; Admin Dose 75 MLS/HR; Start 09/18/18 at 17:00 Propofol 100 ml @ 1.227 mls/ hr Q12H IV ; Start 09/18/18 at 21:00 Norepinephrine 250 ml @ 1.875 mls/ hr TITRATE IV Last administered on 09/20/18at 14:09; Admin Dose 15 MLS/HR; Start 09/18/18 at 23:00 Fluconazole 100 ml @ 100 mls/hr Q24H IVPB Last administered on 09/21/18at 12:36; Admin Dose 100 MLS/HR; Start 09/19/18 at 12:00 Collagenase (Santyl) 1 applic DAILY TOP Last administered on 09/21/18at 08:32; Admin Dose 1 APPLIC; Start 09/19/18 at 11:30 IV Flush (NS 10 ml) 10 ml PRN PRN IV IV PROTOCOL; Start 09/19/18 at 15:00 Vancomycin HCl (Vanco Iv Per Pharmacy) VANCOMYCIN PER PHARMACY PER PROTOCOL XX ; Start 09/20/18 at 17:00 Vancomycin/Sodium Chloride 250 ml @ 125 mls/hr Q24H IVPB Last administered on 09/20/18at 16:50; Admin Dose 125 MLS/HR; Start 09/20/18 at 17:00 Morphine Sulfate (morphine) 2 mg Q4H PRN IV .SEVERE PAIN 7-10; Start 09/21/18 at 11:30 Miscellaneous Information (*Rx Drug Level Order Reminder*) VANCOMYCIN TROUGH 09/22 AT 1600 ONCE ONCE XX ; Start 09/22/18 at 16:00; Stop 09/22/18 at 16:01 Cefepime HCl 50 ml @ 100 mls/hr Q12 IVPB ; Start 09/21/18 at 13:00 Assessment/Plan Hospital Course (Demo Recall) IMPRESSION 1. Seizure requiring intubation for airway protection now patient remains significantly encephalopathic MRI negative for acute bleed or CVA 2. Metabolic acidosis likely secondary to hypoperfusion. Now improved 3. Significant lactic acidosis with evidence of septic shock given hypotension and vasopressor support. Plan 1. Continue fluid resuscitation. 2. Intravenous antibiotics pending culture results. 3. Continue antiepileptics. 4. EEG evaluation and neurology recommendations. MRI noted. Extremely poor prognosis. 5. DVT and GI prophylaxis. family conference re goals of care. cc 40mins. JODI MOY MD, [facility] Sep 21, 2018 13:32
[2018-09-21] MEDS: CEFEPIME 1GM/50 ML (PMX) 50 ML IVPB SCH ×2 (13:46→21:06)
[2018-09-21] MEDS: NORepinephrine 8MG/250 ML (PMX 250 ML IV SCH (15:22)
--- NOTE | 2018-09-21 16:04 | CONS ---
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 She was additionally reported to have a seizure... for which neurology is co nsulted. Most clinically consistent with new onset epilepsy. Initial EEG was notable for GPEDs and an electrographic seizure originating in the R temporal region.. s/p Dilantin load, with ongoing episodic staring spells (presumed seizures) noted clinically.. s/p Phenobarbital load on 09/18..with resolution of episodes suspicious for seizure MRI is unrevealing. Repeat EEG is without epileptiform activity P: Hold phb Hold Keppra and Dilantin for now Limit other sedating medications where possible Other medical management per primary Will follow clinically Consultation Date/Type/Reason Admit Date/Time Sep 16, 2018 at 22:12 Type of Consult Neurology Reason for Consultation new onset seizures Requesting Provider: ANGELLA PERRIN Date/Time of Note DATE: 09/21/18 TIME: 16:04 24 HR Interval Summary Free Text/Dictation Continues critical care. S/p EEG. No acute events or changes in pt condition reported. Subjective hx not possible: pt non-verbal, pt critical status Exam Vital Signs Vitals Vital Signs Date Temp Pulse Resp B/P (MAP) Pulse Ox O2 O2 Flow FiO2 Time Delivery Rate 09/21/18 88 14 112/79 100 14:30 (90) 09/21/18 Mechanical 14:00 Ventilator 09/21/18 97.8 12:00 09/21/18 30 08:00 09/18/18 2.0 09:01 Intake and Output 09/20/18 09/20/18 09/21/18 1515:00 23:00 07:00 IntakeIntake Total 1155.50 ml 1471.25 ml 1202.50 ml OutputOutput Total 1180 ml 1550 ml 1400 ml BalanceBalance -24.50 ml -78.75 ml -197.50 ml Exam PE: Gen Appearance: No Apparent Distress HEENT: Intubated Cardiovascular: Regular rate Abdomen: Soft Extremities: Dry NE: The patient was obtunded. Grimaced to noxious stimuli Cranial nerve examination was limited by mental status. Pupils were equal and reactive to light. There was no afferent pupillary defect. Funduscopic examination was limited. Face was grossly symmetric, w/ present corneal and cough reflexes. Tone was normal. Muscle bulk was diminished. I did not see fasciculations. The patient minimally withdrew to noxious stimulation in her RUE and LLE. Coordination and gait testing was limited by mental status. Arm and leg reflexes were within normal limits and symmetric. Hudson's sign was absent. Plantar responses were flexor. SWEETIE NATARAJAN NP Sep 21, 2018 16:04
--- NOTE | 2018-09-21 16:40 | PN ---
Date/Time of Note Date/Time of Note DATE: 09/21/18 TIME: 16:39 Assessment/Plan VTE Prophylaxis Risk score (from Nsg)>0 risk: 5 SCD applied (from Nsg): Yes Pharmacological prophylaxis: heparin Lines/Catheters IV Catheter Type (from Nrsg): PICC Line Central line still needed: Yes Urinary Cath still in place: Yes Reason Cath still needed: other (indicate) Assessment/Plan Hospital Course S: remains intubated and completely unresponsive, and still on minimal pressor support O: Constitutional: barely responsive, frail, chronically ill looking Head: atraumatic, normocephalic, NC Neck: non-tender, supple Respiratory: coarse, diminished Cardiovascular: regular rate and rhythm Gastrointestinal: S/ NT / ND / +BS Extremities: no edema, good radial pulses, frail, assessment and Plan: 58 yo F with a slow early onset dementia, cause unknown who [facility] in for abnormal jerking behavior concerning for seizures # Seizure requiring intubation for airway protection -continue vent support for now #Sespis shock with aspiration PNA and UTI # Chronic dementia/encephalopathy, -nonverbal and bedbound at baseline. Of gradual onset, no organic cause found despite extensive workup per -cared for at home by and children 24hours # Remote History of West Nile virus infection #Chronic dyslipidemia #Chronic hypertension: currently hypotensive #Chronic psychiatric d/c on risperdone with benztropine for tardive dyskinesia ? -dose of benztropine recently reduced all pysch meds on hold for now Plan : -At this time continue ICU monitoring and management -Patient has been having serial EEGS, last EEG showed no further seizure, all antiseizure and sedating meds have been stopped at this time, await clinical improvement of mental status -Continue antibiotics and antifungal and wean pressors as tolerated -Continue tube feeds -Continue serial labs and close monitoring -Further interventions will depend on clinical course -POC discussed with nursing staff and consultants - was also called via telephone and given update Care time 40mins Result Diagram: 09/21/185 09/21/18444 Results 24hrs Laboratory Tests Test 09/21/18 04:45 White Blood Count 11.2 H Red Blood Count 3.55 L Hemoglobin 11.1 L Hematocrit 31.8 L Mean Corpuscular Volume 89.6 Mean Corpuscular Hemoglobin 31.3 Mean Corpuscular Hemoglobin Concent 34.9 Red Cell Distribution Width 12.6 Platelet Count 166 # Mean Platelet Volume 10.0 Immature Granulocytes % 0.400 Neutrophils % 76.4 Lymphocytes % 10.5 L Monocytes % 9.2 Eosinophils % 3.0 Basophils % 0.5 Nucleated Red Blood Cells % 0.0 Immature Granulocytes # 0.050 H Neutrophils # 8.5 H Lymphocytes # 1.2 Monocytes # 1.0 H Eosinophils # 0.3 Basophils # 0.1 Nucleated Red Blood Cells # 0.0 Sodium Level 139 Potassium Level 2.6 *L Chloride Level 111 H Carbon Dioxide Level 24 Anion Gap 4 L Blood Urea Nitrogen 6 L Creatinine 0.58 Est Glomerular Filtrat Rate mL/min > 60 Glucose Level 148 Calcium Level 7.8 L Phosphorus Level 1.8 L Magnesium Level 1.5 L Exam/Review of Systems Exam Vitals Vital Signs Date Temp Pulse Resp B/P (MAP) Pulse Ox O2 O2 Flow FiO2 Time Delivery Rate 09/21/18 88 14 112/79 100 14:30 (90) 09/21/18 Mechanical 14:00 Ventilator 09/21/18 97.8 12:00 09/21/18 30 08:00 09/18/18 2.0 09:01 Intake and Output 09/20/18 09/20/18 09/21/18 1414:59 22:59 06:59 IntakeIntake Total 1155.50 ml 1465.00 ml 1281.25 ml OutputOutput Total 1130 ml 1665 ml 1235 ml BalanceBalance 25.50 ml -200.00 ml 46.25 ml Results Results 24hrs Laboratory Tests Test 09/21/18 04:45 White Blood Count 11.2 H Red Blood Count 3.55 L Hemoglobin 11.1 L Hematocrit 31.8 L Mean Corpuscular Volume 89.6 Mean Corpuscular Hemoglobin 31.3 Mean Corpuscular Hemoglobin Concent 34.9 Red Cell Distribution Width 12.6 Platelet Count 166 # Mean Platelet Volume 10.0 Immature Granulocytes % 0.400 Neutrophils % 76.4 Lymphocytes % 10.5 L Monocytes % 9.2 Eosinophils % 3.0 Basophils % 0.5 Nucleated Red Blood Cells % 0.0 Immature Granulocytes # 0.050 H Neutrophils # 8.5 H Lymphocytes # 1.2 Monocytes # 1.0 H Eosinophils # 0.3 Basophils # 0.1 Nucleated Red Blood Cells # 0.0 Sodium Level 139 Potassium Level 2.6 *L Chloride Level 111 H Carbon Dioxide Level 24 Anion Gap 4 L Blood Urea Nitrogen 6 L Creatinine 0.58 Est Glomerular Filtrat Rate mL/min > 60 Glucose Level 148 Calcium Level 7.8 L Phosphorus Level 1.8 L Magnesium Level 1.5 L Medications Medication Current Medications IV Flush (NS 3 ml) 3 ml PER PROTOCOL IV ; Start 09/17/18 at 03:30 Ondansetron HCl (Zofran Inj) 4 mg Q6H PRN IV NAUSEA/VOMITING; Start 09/17/18 at 03:30 Acetaminophen (Tylenol Tab) 650 mg Q6H PRN PO .PAIN 1-3 OR TEMP; Start 09/17/18 at 03:30 Acetaminophen/ Hydrocodone Bitart ([place] (5/325)) 1 tab Q6H PRN PO .MOD PAIN 4- 6; Start 09/17/18 at 03:30 Docusate Sodium (Colace) 100 mg Q12H PRN PO .CONSTIPATION; Start 09/17/18 at 03:30 Magnesium Hydroxide (Milk Of Mag) 30 ml DAILY PRN PO .CONSTIPATION; Start at 03:30 Pantoprazole (Protonix Iv) 40 mg DAILY@06 IV Last administered on 09/21/18at 05:12; Admin Dose 40 MG; Start 09/17/18 at 06:00 Heparin Sodium (Porcine) (Heparin (5000 Units/1ml)) 5,000 unit Q12 SC Last administered on 09/21/18at 08:32; Admin Dose 5,000 UNIT; Start 09/17/18 at 09:00 Albuterol/ Ipratropium (Duoneb) 3 ml Q4H RESP THERAPY PRN HHN SHORTNESS OF BREATH; Start 09/17/18 at 03:30 Hydralazine HCl (Apresoline) 10 mg Q6H PRN IV ELEVATED BLOOD PRESSURE; Start 09/17/18 at 03:30 Nitroglycerin (Nitroglycerin (Sl Tab) 0.4 Mg) 1 tab Q5M PRN SL ANGINA; Start 09/17/18 at 03:30 Lorazepam (Ativan) 1 mg Q2H PRN IV SEIZURES Last administered on 09/17/18at 03:57; Admin Dose 1 MG; Start 09/17/18 at 03:30 Miscellaneous Information (Pending Santyl Order For Wound Care) This patient goel... PRN PRN XX WOUND CARE; Start 09/17/18 at 05:00 Dextrose/Sodium Chloride 1,000 ml @ 75 mls/hr [id number] IV Last administered on 09/21/18 11:46; Admin Dose 75 MLS/HR; Start 09/18/18 at 17:00 Propofol 100 ml @ 1.227 mls/ hr Q12H IV ; Start 09/18/18 at 21:00 Norepinephrine 250 ml @ 1.875 mls/ hr TITRATE IV Last administered on 09/21/18 15:22; Admin Dose 7.5 MLS/HR; Start 09/18/18 at 23:00 Fluconazole 100 ml @ 100 mls/hr Q24H IVPB Last administered on 09/21/18 12:36; Admin Dose 100 MLS/HR; Start 09/19/18 at 12:00 Collagenase (Santyl) 1 applic DAILY TOP Last administered on 09/21/18 08:32; Admin Dose 1 APPLIC; Start 09/19/18 at 11:30 IV Flush (NS 10 ml) 10 ml PRN PRN IV IV PROTOCOL; Start 09/19/18 at 15:00 Vancomycin HCl (Vanco Iv Per Pharmacy) VANCOMYCIN PER PHARMACY PER PROTOCOL XX ; Start 09/20/18 at 17:00 Vancomycin/Sodium Chloride 250 ml @ 125 mls/hr Q24H IVPB Last administered on 09/20/18at 16:50; Admin Dose 125 MLS/HR; Start 09/20/18 at 17:00 Morphine Sulfate (morphine) 2 mg Q4H PRN IV .SEVERE PAIN 7-10; Start 09/21/18 at 11:30 Miscellaneous Information (*Rx Drug Level Order Reminder*) VANCOMYCIN TROUGH 09/22 AT 1600 ONCE ONCE XX ; Start 09/22/18 at 16:00; Stop 09/22/18 at 16:01 Cefepime HCl 50 ml @ 100 mls/hr Q12 IVPB Last administered on 09/21/18 13:46; Admin Dose 100 MLS/HR; Start 09/21/18 at 13:00 DYLAN RAMOS Sep 21, 2018 16:40
[2018-09-21] MEDS: VANCOMYCIN 750 MG (PMX) 250 ML IVPB SCH (16:44)
[2018-09-22] VITALS (107 sets, daily range): BP systolic 75–109; BP diastolic 55–83; PULSE 66–91; RESP 14–21
[2018-09-22] MEDS: DEXTROSE 5%-0.45% NACL 1,000 ML IV SCH ×2 (01:59→20:16)
[2018-09-22] MEDS: PANTOPRAZOLE 40 MG INJ IV SCH (05:09)
[2018-09-22] MEDS: POTASSIUM CHLORIDE 100 ML IVPB SCH ×3 (08:32→14:25)
[2018-09-22] MEDS: PROPOFOL 100 ML IV SCH ×2 (08:33→20:09)
--- NOTE | 2018-09-22 08:51 | PN ---
Date/Time of Note Date/Time of Note DATE: 09/22/18 TIME: 08:41 Assessment/Plan VTE Prophylaxis Risk score (from Ns)>0 risk: 2 SCD applied (from Ns): Yes Pharmacological prophylaxis: heparin Lines/Catheters IV Catheter Type (from Nrs): PICC Line Central line still needed: Yes Urinary Cath still in place: Yes Reason Cath still needed: urinary retention Assessment/Plan Problems: (1) Mental status alteration Status: Acute Comment: This is a combination of her having been with epilepsy at the time of admission with a chronic encephalopathy as evidenced by the EEGs, and her metabolic status which includes sepsis. Do maximum that we can to support her. However long-term prognosis for meaningful recovery has profound limitations. Qualifiers: Altered mental status type: coma Coma depth: [place] coma 3-8 Coma timing: in the field (EMT or ambulance) Qualified Codes: R40.2431 - [place] coma scale score 3-8, in the field [emt or ambulance] (2) Seizure disorder Status: Acute Comment: The best of our information this is an acute onset of a seizure disorder. Neurology is guiding us with anti-epilepsy medicines which is modestly tricky due to the concerns of further declining her limited mental status. (3) Dementia Status: Chronic Comment: This apparently has been going on for some time and is postulated to be due to the sequelae of West Nile virus infection. Qualifiers: Dementia type: unspecified type Dementia behavioral disturbance: without behavioral disturbance Qualified Codes: F03.90 - Unspecified dementia without behavioral disturbance (4) Bedbound Status: Chronic Comment: Noted. Wound and skin management (5) SIRS (systemic inflammatory response syndrome) Status: Acute Comment: Remains on pressor support at this time. Based on the results of the cultures she is on appropriate antibiotic therapy and infectious diseases giving guidance (6) Hyperlipidemia Status: Chronic Comment: Noted. Not of an urgent indication to intervene Qualifiers: Hyperlipidemia type: pure hypercholesterolemia Qualified Codes: E78.00 - Pure hypercholesterolemia, unspecified (7) Acute hypokalemia Status: Acute Comment: Receiving supplementation now. 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 This is historical and we do not have lab data support the (10) Staphylococcal sepsis Status: Acute Comment: On appropriate antibiotic therapy. Please note the blood cultures were 2 out of 2 positive (11) Pseudomonas aeruginosa infection Status: Acute Comment: Patient is on appropriate antibiotic therapy based on cultures and sensitivities (12) Hypophosphatemia Status: Acute Comment: Try to replete Result Diagram: 09/22/18 0400 09/22/18 0400 Results 24hrs Laboratory Tests Test 09/22/18 04:00 White Blood Count 10.5 Red Blood Count 3.04 L Hemoglobin 9.6 L Hematocrit 27.6 L Mean Corpuscular Volume 90.8 Mean Corpuscular Hemoglobin 31.6 Mean Corpuscular Hemoglobin Concent 34.8 Red Cell Distribution Width 13.0 Platelet Count 160 Mean Platelet Volume 9.6 Immature Granulocytes % 0.500 H Neutrophils % 74.6 Lymphocytes % 8.5 L Monocytes % 10.7 Eosinophils % 5.3 Basophils % 0.4 Nucleated Red Blood Cells % 0.0 Immature Granulocytes # 0.050 H Neutrophils # 7.9 H Lymphocytes # 0.9 Monocytes # 1.1 H Eosinophils # 0.6 H Basophils # 0.0 Nucleated Red Blood Cells # 0.0 Sodium Level 133 L Potassium Level 3.0 L Chloride Level 103 Carbon Dioxide Level 26 Anion Gap 4 L Blood Urea Nitrogen 10 Creatinine 0.50 Est Glomerular Filtrat Rate mL/min > 60 Glucose Level 157 Calcium Level 7.8 L Phosphorus Level 1.6 L Magnesium Level 2.1 Subjective 24 Hr Interval Summary Subjective hx not possible: pt non-verbal, pt critical status ENT: other (Endotracheal intubation and orogastric tube feeding) Exam/Review of Systems Exam Vitals Vital Signs Date Temp Pulse Resp B/P (MAP) Pulse Ox O2 O2 Flow FiO2 Time Delivery Rate 09/22/18 73 08:00 09/22/18 14 90/68 (75) 100 06:30 09/22/18 Mechanical 06:00 Ventilator 09/22/18 30 05:07 09/22/18 97.7 04:00 09/18/18 2.0 09:01 Intake and Output 09/21/18 09/21/18 09/22/18 1515:00 23:00 07:00 IntakeIntake Total 995.00 ml 1457.451 ml 1004.377 ml OutputOutput Total 1125 ml 650 ml 200 ml BalanceBalance -130.00 ml 807.451 ml 804.377 ml Constitutional: non-verbal Psych: other (Nonresponsive) ENMT: intubated, other (Oral gastric tube for feeding) Cardiovascular: regular rate and rhythm, nl pulses Gastrointestinal: soft, nl liver, spleen, non-tender Musculoskeletal: nl extremities to inspection, nl gait and stance Extremities: normal pulses Neurological: other (Nonresponsive) Results Results 24hrs Laboratory Tests Test 09/22/18 04:00 White Blood Count 10.5 Red Blood Count 3.04 L Hemoglobin 9.6 L Hematocrit 27.6 L Mean Corpuscular Volume 90.8 Mean Corpuscular Hemoglobin 31.6 Mean Corpuscular Hemoglobin Concent 34.8 Red Cell Distribution Width 13.0 Platelet Count 160 Mean Platelet Volume 9.6 Immature Granulocytes % 0.500 H Neutrophils % 74.6 Lymphocytes % 8.5 L Monocytes % 10.7 Eosinophils % 5.3 Basophils % 0.4 Nucleated Red Blood Cells % 0.0 Immature Granulocytes # 0.050 H Neutrophils # 7.9 H Lymphocytes # 0.9 Monocytes # 1.1 H Eosinophils # 0.6 H Basophils # 0.0 Nucleated Red Blood Cells # 0.0 Sodium Level 133 L Potassium Level 3.0 L Chloride Level 103 Carbon Dioxide Level 26 Anion Gap 4 L Blood Urea Nitrogen 10 Creatinine 0.50 Est Glomerular Filtrat Rate mL/min > 60 Glucose Level 157 Calcium Level 7.8 L Phosphorus Level 1.6 L Magnesium Level 2.1 Medications Medication Current Medications IV Flush (NS 3 ml) 3 ml PER PROTOCOL IV ; Start 09/17/18 at 03:30 Ondansetron HCl (Zofran Inj) 4 mg Q6H PRN IV NAUSEA/VOMITING; Start 09/17/18 at 03:30 Acetaminophen (Tylenol Tab) 650 mg Q6H PRN PO .PAIN 1-3 OR TEMP; Start 09/17/18 at 03:30 Docusate Sodium (Colace) 100 mg Q12H PRN PO .CONSTIPATION; Start 09/17/18 at 03 :30 Magnesium Hydroxide (Milk Of Mag) 30 ml DAILY PRN PO .CONSTIPATION; Start 09/17/18 at 03:30 Pantoprazole (Protonix Iv) 40 mg DAILY@06 IV Last administered on 09/22/18at 05:09; Admin Dose 40 MG; Start 09/17/18 at 06:00 Heparin Sodium (Porcine) (Heparin (5000 Units/1ml)) 5,000 unit Q12 SC Last adm inistered on 09/21/18 21:07; Admin Dose 5,000 UNIT; Start 09/17/18 at 09:00 Albuterol/ Ipratropium (Duoneb) 3 ml Q4H RESP THERAPY PRN HHN SHORTNESS OF BREATH; Start 09/17/18 at 03:30 Hydralazine HCl (Apresoline) 10 mg Q6H PRN IV ELEVATED BLOOD PRESSURE; Start 09/17/18 at 03:30 Nitroglycerin (Nitroglycerin (Sl Tab) 0.4 Mg) 1 tab Q5M PRN SL ANGINA; Start 09/17/18 at 03:30 Lorazepam (Ativan) 1 mg Q2H PRN IV SEIZURES Last administered on 09/17/18 03:57; Admin Dose 1 MG; Start 09/17/18 at 03:30 Miscellaneous Information (Pending Santyl Order For Wound Care) This patient goel... PRN PRN XX WOUND CARE; Start 09/17/18 at 05:00 Dextrose/Sodium Chloride 1,000 ml @ 75 mls/hr [id number] IV Last administered on 09/22/18 01:59; Admin Dose 75 MLS/HR; Start 09/18/18 at 17:00 Propofol 100 ml @ 1.227 mls/ hr Q12H IV ; Start 09/18/18 at 21:00 Norepinephrine 250 ml @ 1.875 mls/ hr TITRATE IV Last administered on 09/21/18 15:22; Admin Dose 7.5 MLS/HR; Start 09/18/18 at 23:00 Fluconazole 100 ml @ 100 mls/hr Q24H IVPB Last administered on 09/21/18 12:36; Admin Dose 100 MLS/HR; Start 09/19/18 at 12:00 Collagenase (Santyl) 1 applic DAILY TOP Last administered on 09/21/18 08:32; Admin Dose 1 APPLIC; Start 09/19/18 at 11:30 IV Flush (NS 10 ml) 10 ml PRN PRN IV IV PROTOCOL; Start 09/19/18 at 15:00 Vancomycin HCl (Vanco Iv Per Pharmacy) VANCOMYCIN PER PHARMACY PER PROTOCOL XX ; Start 09/20/18 at 17:00 Vancomycin/Sodium Chloride 250 ml @ 125 mls/hr Q24H IVPB Last administered on 09/21/18at 16:44; Admin Dose 125 MLS/HR; Start 09/20/18 at 17:00 Miscellaneous Information (*Rx Drug Level Order Reminder*) VANCOMYCIN TROUGH 09/22 AT 1600 ONCE ONCE XX ; Start 09/22/18 at 16:00; Stop 09/22/18 at 16:01 Cefepime HCl 50 ml @ 100 mls/hr Q12 IVPB Last administered on 09/21/18at 21:06; Admin Dose 100 MLS/HR; Start 09/21/18 at 13:00 Potassium Phosphate 20 meq/ Sodium Chloride 254.5455 ml @ 63.636 m... ONCE ONCE IVPB ; Start 09/22/18 at 14:00; Stop 09/22/18 at 17:59 Potassium Chloride 100 ml @ 50 mls/hr Q2H IVPB Last administered on 09/22/18at 08:32; Admin Dose 50 MLS/HR; Start 09/22/18 at 08:00; Stop 09/22/18 at 13:59 SANJU GONZALEZ MD Sep 22, 2018 08:51
[2018-09-22] MEDS ORDERED: SOD PHOS MONO/DIBAS 250 MG TAB NGT ONE (10:00)
[2018-09-22] MEDS: COLLAGENASE 5 GM (UD JAR) TOP SCH (10:22)
[2018-09-22] MEDS: CEFEPIME 1GM/50 ML (PMX) 50 ML IVPB SCH ×2 (10:22→20:16)
[2018-09-22] MEDS: HEPARIN 5,000 UNIT/1 ML VIAL SC SCH ×2 (10:27→20:18)
--- NOTE | 2018-09-22 11:20 | CONS ---
Consult Date/Type/Reason Admit Date/Time Sep 16, 2018 at 22:12 Initial Consult Date 09/18/18 Type of Consultation: Pulm/CCM Requesting Provider: ANGELLA PERRIN Date/Time of Note DATE: 09/22/18 TIME: 11:15 Subjective Sedated on the vent. No events overnight. Objective Vitals Vital Signs Date Temp Pulse Resp B/P (MAP) Pulse Ox O2 O2 Flow FiO2 Time Delivery Rate 09/22/18 72 14 93/71 (78) 100 10:45 09/22/18 Mechanical 10:00 Ventilator 09/22/18 30 08:00 09/22/18 98.3 08:00 09/18/18 2.0 09:01 Intake and Output 09/21/18 09/21/18 09/22/18 1515:00 23:00 07:00 IntakeIntake Total 995.00 ml 1457.451 ml 1004.377 ml OutputOutput Total 1125 ml 650 ml 200 ml BalanceBalance -130.00 ml 807.451 ml 804.377 ml Exam HEENT: Neck supple; no JVD; no LAD; + ET tube CVS: RRR, S1 and S2; CHEST: Clear ABD: Soft, NT, + BS EXT: No c/c/e Results/Medications Result Diagram: 09/22/1839909/22/18 0400 Results 24 hrs Laboratory Tests Test 09/22/18 04:00 White Blood Count 10.5 Red Blood Count 3.04 L Hemoglobin 9.6 L Hematocrit 27.6 L Mean Corpuscular Volume 90.8 Mean Corpuscular Hemoglobin 31.6 Mean Corpuscular Hemoglobin Concent 34.8 Red Cell Distribution Width 13.0 Platelet Count 160 Mean Platelet Volume 9.6 Immature Granulocytes % 0.500 H Neutrophils % 74.6 Lymphocytes % 8.5 L Monocytes % 10.7 Eosinophils % 5.3 Basophils % 0.4 Nucleated Red Blood Cells % 0.0 Immature Granulocytes # 0.050 H Neutrophils # 7.9 H Lymphocytes # 0.9 Monocytes # 1.1 H Eosinophils # 0.6 H Basophils # 0.0 Nucleated Red Blood Cells # 0.0 Sodium Level 133 L Potassium Level 3.0 L Chloride Level 103 Carbon Dioxide Level 26 Anion Gap 4 L Blood Urea Nitrogen 10 Creatinine 0.50 Est Glomerular Filtrat Rate mL/min > 60 Glucose Level 157 Calcium Level 7.8 L Phosphorus Level 1.6 L Magnesium Level 2.1 Home Meds Reported Medications Cyanocobalamin* (Vitamin B-12*) 50 Mcg Tablet, 50 MCG PO DAILY, TAB 09/17/18 Amlodipine Besylate* (Amlodipine Besylate*) 2.5 Mg Tablet, 5 MG PO DAILY, #30 TAB 09/17/18 Risperidone* (Risperidone*) 0.5 Mg Tablet, 0.5 MG PO DAILY, TAB 09/17/18 Lamotrigine* (Lamotrigine*) 25 Mg Tablet, 25 MG PO DAILY, TAB 09/17/18 Benztropine Mesylate* (Benztropine Mesylate*) 2 Mg Tablet, 2 MG PO BID, TAB 09/17/18 Medications Current Medications IV Flush (NS 3 ml) 3 ml PER PROTOCOL IV ; Start 09/17/18 at 03:30 Ondansetron HCl (Zofran Inj) 4 mg Q6H PRN IV NAUSEA/VOMITING; Start 09/17/18 at 03:30 Acetaminophen (Tylenol Tab) 650 mg Q6H PRN PO .PAIN 1-3 OR TEMP; Start 09/17/18 at 03:30 Docusate Sodium (Colace) 100 mg Q12H PRN PO .CONSTIPATION; Start 09/17/18 at 03:30 Magnesium Hydroxide (Milk Of Mag) 30 ml DAILY PRN PO .CONSTIPATION; Start 09/17/18 at 03:30 Pantoprazole (Protonix Iv) 40 mg DAILY@06 IV Last administered on 09/22/18at 05:09; Admin Dose 40 MG; Start 09/17/18 at 06:00 Heparin Sodium (Porcine) (Heparin (5000 Units/1ml)) 5,000 unit Q12 SC Last administered on 09/22/18at 10:27; Admin Dose 5,000 UNIT; Start 09/17/18 at 09:00 Albuterol/ Ipratropium (Duoneb) 3 ml Q4H RESP THERAPY PRN HHN SHORTNESS OF BREATH; Start 09/17/18 at 03:30 Hydralazine HCl (Apresoline) 10 mg Q6H PRN IV ELEVATED BLOOD PRESSURE; Start 09/17/18 at 03:30 Nitroglycerin (Nitroglycerin (Sl Tab) 0.4 Mg) 1 tab Q5M PRN SL ANGINA; Start 09/17/18 at 03:30 Lorazepam (Ativan) 1 mg Q2H PRN IV SEIZURES Last administered on 09/17/18at 0 3:57; Admin Dose 1 MG; Start 09/17/18 at 03:30 Miscellaneous Information (Pending Santyl Order For Wound Care) This patient goel... PRN PRN XX WOUND CARE; Start 09/17/18 at 05:00 Dextrose/Sodium Chloride 1,000 ml @ 75 mls/hr [id number] IV Last administered on 09/22/18at 01:59; Admin Dose 75 MLS/HR; Start 09/18/18 at 17:00 Propofol 100 ml @ 1.227 mls/ hr Q12H IV ; Start 09/18/18 at 21:00 Norepinephrine 250 ml @ 1.875 mls/ hr TITRATE IV Last administered on 09/21/18at 15:22; Admin Dose 7.5 MLS/HR; Start 09/18/18 at 23:00 Fluconazole 100 ml @ 100 mls/hr Q24H IVPB Last administered on 09/21/18at 12:36; Admin Dose 100 MLS/HR; Start 09/19/18 at 12:00 Collagenase (Santyl) 1 applic DAILY TOP Last administered on 09/22/18at 10:22; Admin Dose 1 APPLIC; Start 09/19/18 at 11:30 IV Flush (NS 10 ml) 10 ml PRN PRN IV IV PROTOCOL; Start 09/19/18 at 15:00 Vancomycin HCl (Vanco Iv Per Pharmacy) VANCOMYCIN PER PHARMACY PER PROTOCOL XX ; Start 09/20/18 at 17:00 Vancomycin/Sodium Chloride 250 ml @ 125 mls/hr Q24H IVPB Last administered on 09/21/18at 16:44; Admin Dose 125 MLS/HR; Start 09/20/18 at 17:00 Miscellaneous Information (*Rx Drug Level Order Reminder*) VANCOMYCIN TROUGH 09/22 AT 1600 ONCE ONCE XX ; Start 09/22/18 at 16:00; Stop 09/22/18 at 16:01 Cefepime HCl 50 ml @ 100 mls/hr Q12 IVPB Last administered on 09/22/18at 10:22; Admin Dose 100 MLS/HR; Start 09/21/18 at 13:00 Potassium Phosphate 20 meq/ Sodium Chloride 254.5455 ml @ 63.636 m... ONCE ONCE IVPB ; Start 09/22/18 at 14:00; Stop 09/22/18 at 17:59 Potassium Chloride 100 ml @ 50 mls/hr Q2H IVPB Last administered on 09/22/18at 08:32; Admin Dose 50 MLS/HR; Start 09/22/18 at 08:00; Stop 09/22/18 at 13:59 Assessment/Plan Assessment/Plan (Daily) IMP: 1. Seizure requiring intubation for airway protection now patient remains significantly encephalopathic MRI negative for acute bleed or CVA 2. Metabolic acidosis likely secondary to hypoperfusion. Now improved 3. Septic Shock 4. s/p lactic acidosis RECS: 1. Titrate levophed to MAP > 65 mm Hg 2. Intravenous antibiotics; de-escalate cultures 3. Continue antiepileptics. 4. Minimize sedation; continue to follow neuro exam 5. DVT and GI prophylaxis. cc 40mins. SAIMA MELENDEZ MD Sep 22, 2018 11:20
[2018-09-22] MEDS: FLUCONAZOLE 200 MG (PMX) 100 ML IVPB SCH (12:29)
--- NOTE | 2018-09-22 12:48 | CONS ---
Assessment/Plan Assessment/Plan Hospital Course (Demo Recall) Patient is more responsive Levophed titrated down to 2 mcg, she is in no distress Temperature 98.3 pulse 60 respirations 14 blood pressure 93/71 saturation 100 on vent WBC 10.5 H&H 9.6 and 27.6 platelets 160 no shift BUN 10 creatinine 0.50 Microbiology: Urine culture grew Streptococcus, sputum culture growing pseudomonas aeruginosa Antimicrobials: Cefepime, vancomycin, fluconazole Indwelling: Endotracheal tube orogastric tube Prince catheter left upper extremity PICC line Physical examination: Well-developed chronically ill-appearing middle-aged woman who is intubated in no distress. Head atraumatic normocephalic. Sclera nonicteric. Neck is supple. Chest rise symmetrical, breath sounds diminished bases. Heart: S1-S2. Abdomen soft bowel sounds present, hypoactive. Extremit ies cyanotic with trace edema Assessment: 1. Septic shock 2. Gram-positive cocci bacteremia cw contaminant 3. Respiratory failure 4. 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 Acute on chronic encephalopathy 6. Urinary tract infection Plan: Patient is doing better, Levophed being titrated down, she is more responsive, we will will keep her on cefepime and discontinue other antibiotics Consultation Date/Type/Reason Admit Date/Time Sep 16, 2018 at 22:12 Initial Consult Date 09/18/18 Type of Consult id Requesting Provider: ANGELLA PERRIN Date/Time of Note DATE: 09/22/18 TIME: 12:47 Exam/Review of Systems Exam Vitals Vital Signs Date Temp Pulse Resp B/P (MAP) Pulse Ox O2 O2 Flow FiO2 Time Delivery Rate 09/22/18 69 12:00 09/22/18 14 93/71 (78) 100 10:45 09/22/18 Mechanical 10:00 Ventilator 09/22/18 30 08:00 09/22/18 98.3 08:00 09/18/18 2.0 09:01 Intake and Output 09/21/18 09/21/18 09/22/18 1515:00 23:00 07:00 IntakeIntake Total 995.00 ml 1457.451 ml 1044.377 ml OutputOutput Total 1125 ml 650 ml 200 ml BalanceBalance -130.00 ml 807.451 ml 844.377 ml Results Result Diagram: 09/22/1839909/22/18399 Results 24hrs Laboratory Tests Test 09/22/18 04:00 White Blood Count 10.5 Red Blood Count 3.04 L Hemoglobin 9.6 L Hematocrit 27.6 L Mean Corpuscular Volume 90.8 Mean Corpuscular Hemoglobin 31.6 Mean Corpuscular Hemoglobin Concent 34.8 Red Cell Distribution Width 13.0 Platelet Count 160 Mean Platelet Volume 9.6 Immature Granulocytes % 0.500 H Neutrophils % 74.6 Lymphocytes % 8.5 L Monocytes % 10.7 Eosinophils % 5.3 Basophils % 0.4 Nucleated Red Blood Cells % 0.0 Immature Granulocytes # 0.050 H Neutrophils # 7.9 H Lymphocytes # 0.9 Monocytes # 1.1 H Eosinophils # 0.6 H Basophils # 0.0 Nucleated Red Blood Cells # 0.0 Sodium Level 133 L Potassium Level 3.0 L Chloride Level 103 Carbon Dioxide Level 26 Anion Gap 4 L Blood Urea Nitrogen 10 Creatinine 0.50 Est Glomerular Filtrat Rate mL/min > 60 Glucose Level 157 Calcium Level 7.8 L Phosphorus Level 1.6 L Magnesium Level 2.1 Medications Medication Current Medications IV Flush (NS 3 ml) 3 ml PER PROTOCOL IV ; Start 09/17/18 at 03:30 Ondansetron HCl (Zofran Inj) 4 mg Q6H PRN IV NAUSEA/VOMITING; Start 09/17/18 at 03:30 Acetaminophen (Tylenol Tab) 650 mg Q6H PRN PO .PAIN 1-3 OR TEMP; Start 09/17/18 at 03:30 Docusate Sodium (Colace) 100 mg Q12H PRN PO .CONSTIPATION; Start 09/17/18 at 03:30 Magnesium Hydroxide (Milk Of Mag) 30 ml DAILY PRN PO .CONSTIPATION; Start 09/17/18 at 03:30 Pantoprazole (Protonix Iv) 40 mg DAILY@06 IV Last administered on 09/22/18at 05:09; Admin Dose 40 MG; Start 09/17/18 at 06:00 Heparin Sodium (Porcine) (Heparin (5000 Units/1ml)) 5,000 unit Q12 SC Last administered on 09/22/18at 10:27; Admin Dose 5,000 UNIT; Start 09/17/18 at 09:00 Albuterol/ Ipratropium (Duoneb) 3 ml Q4H RESP THERAPY PRN HHN SHORTNESS OF BREATH; Start 09/17/18 at 03:30 Hydralazine HCl (Apresoline) 10 mg Q6H PRN IV ELEVATED BLOOD PRESSURE; Start 09/17/18 at 03:30 Nitroglycerin (Nitroglycerin (Sl Tab) 0.4 Mg) 1 tab Q5M PRN SL ANGINA; Start 09/17/18 at 03:30 Lorazepam (Ativan) 1 mg Q2H PRN IV SEIZURES Last administered on 09/17/18 03:57; Admin Dose 1 MG; Start 09/17/18 at 03:30 Miscellaneous Information (Pending Santyl Order For Wound Care) This patient goel... PRN PRN XX WOUND CARE; Start 09/17/18 at 05:00 Dextrose/Sodium Chloride 1,000 ml @ 75 mls/hr [id number] IV Last administered on 09/22/18 01:59; Admin Dose 75 MLS/HR; Start 09/18/18 at 17:00 Propofol 100 ml @ 1.227 mls/ hr Q12H IV ; Start 09/18/18 at 21:00 Norepinephrine 250 ml @ 1.875 mls/ hr TITRATE IV Last administered on 09/21/18 15:22; Admin Dose 7.5 MLS/HR; Start 09/18/18 at 23:00 Fluconazole 100 ml @ 100 mls/hr Q24H IVPB Last administered on 09/22/18 12:29; Admin Dose 100 MLS/HR; Start 09/19/18 at 12:00 Collagenase (Santyl) 1 applic DAILY TOP Last administered on 09/22/18at 10:22; Admin Dose 1 APPLIC; Start 09/19/18 at 11:30 IV Flush (NS 10 ml) 10 ml PRN PRN IV IV PROTOCOL; Start 09/19/18 at 15:00 Vancomycin HCl (Vanco Iv Per Pharmacy) VANCOMYCIN PER PHARMACY PER PROTOCOL XX ; Start 09/20/18 at 17:00 Vancomycin/Sodium Chloride 250 ml @ 125 mls/hr Q24H IVPB Last administered on 09/21/18at 16:44; Admin Dose 125 MLS/HR; Start 09/20/18 at 17:00 Miscellaneous Information (*Rx Drug Level Order Reminder*) VANCOMYCIN TROUGH 2/9 AT 1600 ONCE ONCE XX ; Start 09/22/18 at 16:00; Stop 09/22/18 at 16:01 Cefepime HCl 50 ml @ 100 mls/hr Q12 IVPB Last administered on 09/22/18at 10:22; Admin Dose 100 MLS/HR; Start 09/21/18 at 13:00 Potassium Phosphate 20 meq/ Sodium Chloride 254.5455 ml @ 63.636 m... ONCE ONCE IVPB ; Start 09/22/18 at 14:00; Stop 09/22/18 at 17:59 Potassium Chloride 100 ml @ 50 mls/hr Q2H IVPB Last administered on 09/22/18at 12:28; Admin Dose 50 MLS/HR; Start 09/22/18 at 08:00; Stop 09/22/18 at 13:59 ZHANE TERAN NP Sep 22, 2018 12:48
[2018-09-22] MEDS ORDERED: POTASSIUM PHOSPHATE 20 MEQ in SOD CHLORIDE 0.9% 250 ML IVPB ONE (14:00)
--- NOTE | 2018-09-22 17:29 | CONS ---
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 She was additionally reported to have a seizure... for which neurology is co nsulted. Most clinically consistent with new onset epilepsy. Initial EEG was notable for GPEDs and an electrographic seizure originating in the R temporal region.. s/p Dilantin load, with ongoing episodic staring spells (presumed seizures) noted clinically.. s/p Phenobarbital load on 09/18..with resolution of episodes suspicious for seizure MRI is unrevealing. Repeat EEG is without epileptiform activity P: Resume Keppra 500 BID Cont to hold Phb and Dilantin for now Ativan IV PRN seizure > 5 min or for cluster Limit other sedating medications where possible Other medical management per primary Will follow clinically Consultation Date/Type/Reason Admit Date/Time Sep 16, 2018 at 22:12 Type of Consult Neurology Reason for Consultation new onset seizures Requesting Provider: ANGELLA PERRIN Date/Time of Note DATE: 09/22/18 TIME: 17:26 24 HR Interval Summary Free Text/Dictation Continues critical care. Reportedly opening her eyes to discomfort. Subjective hx not possible: pt non-verbal, pt critical Exam Vital Signs Vitals Vital Signs Date Temp Pulse Resp B/P (MAP) Pulse Ox O2 O2 Flow FiO2 Time Delivery Rate 09/22/18 77 16:00 09/22/18 14 100 30 15:20 09/22/18 98/72 (81) 14:45 09/22/18 Mechanical 14:00 Ventilator 09/22/18 98.5 12:00 09/18/18 2.0 09:01 Intake and Output 09/21/18 09/21/18 09/22/18 1515:00 23:00 07:00 IntakeIntake Total 995.00 ml 1457.451 ml 1044.377 ml OutputOutput Total 1125 ml 650 ml 200 ml BalanceBalance -130.00 ml 807.451 ml 844.377 ml Exam PE: Gen Appearance: No Apparent Distress HEENT: Intubated Cardiovascular: Regular rate Abdomen: Soft Extremities: Dry NE: The patient was obtunded. Grimaced to noxious stimuli Cranial nerve examination was limited by mental status. Pupils were equal and reactive to light. There was no afferent pupillary defect. Funduscopic examination was limited. Face was grossly symmetric, w/ present corneal and cough reflexes. Tone was normal. Muscle bulk was diminished. I did not see fasciculations. The patient minimally withdrew to noxious stimulation in her RUE and LLE. Coordination and gait testing was limited by mental status. Arm and leg reflexes were within normal limits and symmetric. Hudson's sign was absent. Plantar responses were flexor. SWEETIE NATARAJAN NP Sep 22, 2018 17:29
[2018-09-22] MEDS: LEVETIRACETAM 500 MG (PMX) 100 ML IVPB SCH (20:13)
[2018-09-23] VITALS (96 sets, daily range): BP systolic 75–112; BP diastolic 51–81; PULSE 72–100; RESP 11–25
[2018-09-23] MEDS: DEXTROSE 5%-0.45% NACL 1,000 ML IV SCH (03:40)
[2018-09-23] MEDS: PANTOPRAZOLE 40 MG INJ IV SCH (05:08)
--- NOTE | 2018-09-23 08:45 | PN ---
Date/Time of Note Date/Time of Note DATE: 09/23/18 TIME: 08:40 Assessment/Plan VTE Prophylaxis Risk score (from Nsg)>0 risk: 6 SCD applied (from Nsg): Yes Pharmacological prophylaxis: heparin Lines/Catheters IV Catheter Type (from Nrsg): PICC Line Central line still needed: Yes Urinary Cath still in place: Yes Reason Cath still needed: skin wounds contaminated by urine Assessment/Plan Problems: (1) Seizure disorder Status: Acute Comment: Neurology is helping guide this. Medications are being adjusted to see if it will help the patient have a slightly better mental status. At the present time during my exam she is nonresponsive to noxious stimuli. (2) History of West Nile virus infection Status: Chronic Comment: Noted. This is historical and I do not have the data to prove it but I do believe this is accurate information. Therefore long-term prognosis for recovery has real limitation (3) Mental status alteration Status: Acute Comment: Noted. Qualifiers: Altered mental status type: coma Coma depth: Cruzito coma 3-8 Coma timing: in the field (EMT or ambulance) Qualified Codes: R40.2431 - [place] coma scale score 3-8, in the field [emt or ambulance] (4) Dementia Status: Chronic Comment: The patient is not likely going to be able to feed herself or even be fed with assistance in the future. As such we need to make determinations about whether or not we want to put in a feeding tube. When the family comes today I am going to approach the subject on that Qualifiers: Dementia type: unspecified type Dementia behavioral disturbance: without behavioral disturbance Qualified Codes: F03.90 - Unspecified dementia without behavioral disturbance (5) Bedbound Status: Chronic Comment: Noted. Before doing what we can for wounds including the sacral decubiti and bilateral heel protection (6) Anemia Status: Acute Comment: Check stool for occult blood (7) Pseudomonas aeruginosa infection Status: Acute Comment: On appropriate cephalosporin antibiotic coverage (8) Hepatitis B surface antigen positive Status: Chronic Comment: Noted. Hepatitis precautions for the staff (9) Hypophosphatemia Status: Resolved Comment: Resolved with replacement therapy (10) Essential hypertension Status: Chronic Comment: Patient remains on norepinephrine drip (11) Hyperlipidemia Status: Chronic Comment: Adequate but under the circumstances no need for aggressive intervention Qualifiers: Hyperlipidemia type: pure hypercholesterolemia Qualified Codes: E78.00 - Pure hypercholesterolemia, unspecified (12) Acute hypokalemia Status: Resolved Comment: Resolved Result Diagram: 09/23/18 0420 09/23/18 0609 Results 24hrs Laboratory Tests Test 09/22/18 09:56 09/23/18 04:19 09/23/18 04:20 09/23/18 05:00 Rapid Plasma NONREACTIVE Reagin Hepatitis B POSITIVE H Surface Antigen Hepatitis C NEGATIVE Antibody Lactic Acid Level 1.1 White Blood Count 9.4 Red Blood Count 2.50 L Hemoglobin 8.0 L Hematocrit 24.2 L Mean Corpuscular 96.8 Volume Mean Corpuscular 32.0 Hemoglobin Mean Corpuscular 33.1 Hemoglobin Concen t Red Cell 13.4 Distribution Width Platelet Count 151 Mean Platelet 10.5 H Volume Immature 0.500 H Granulocytes % Neutrophils % 73.4 Lymphocytes % 10.3 L Monocytes % 11.8 H Eosinophils % 3.7 Basophils % 0.3 Nucleated Red 0.0 Blood Cells % Immature 0.050 H Granulocytes # Neutrophils # 6.9 Lymphocytes # 1.0 Monocytes # 1.1 H Eosinophils # 0.4 Basophils # 0.0 Nucleated Red 0.0 Blood Cells # Phosphorus Level 2.3 L Blood Gas Blood arterial Specimen Source Arterial Blood 09/23/2018 4:45:0 Date Drawn 1 AM Arterial Blood pH 7.452 H (Temp corrected) Arterial Blood 32.9 L pCO2 (Temp correct) Arterial Blood 163.8 H pO2 (Temp corrected) Arterial Blood 22.5 HCO3 Arterial Blood -1.0 Base Excess Arterial Blood 98.7 H Oxygen Saturation Tino Test ACCEPTAB Arterial Blood Right Radial Gas Puncture Site Arterial 0.3 Blood Carboxyhemo globin Arterial Blood 0.2 Methemoglobin Blood Gas A-a O2 11.4 Differential Oxyhemoglobin 98.2 Percent Blood Gas 37.0 Temperature Blood Gas 14.0 Respiration Rate Blood Gas Actual 14 Respiration Rate Blood Gas VENT - AC Modality FiO2 30.0 Blood Gas Tidal 400.0 Volume Blood Gas Low 5.0 PEEP Setting Blood Gas LEEANN Notified Whom Blood Gas 09/23/2018 5:06:1 Notified Time 2 AM Test 09/23/18 06:09 Sodium Level 130 L Potassium Level 4.6 Chloride Level 104 Carbon Dioxide 23 Level Anion Gap 3 L Blood Urea 10 Nitrogen Creatinine 0.47 Est Glomerular > 60 Filtrat Rate mL/min Glucose Level 146 Calcium Level 7.6 L Subjective 24 Hr Interval Summary Free Text/Dictation Patient nonresponsive to sternal rub at this time Subjective hx not possible: pt non-verbal, pt critical status Exam/Review of Systems Exam Vitals Vital Signs Date Temp Pulse Resp B/P (MAP) Pulse Ox O2 O2 Flow FiO2 Time Delivery Rate 09/23/18 83 16 94/67 (76) 100 Mechanical 06:00 Ventilator 09/23/18 30 05:15 09/23/18 98.2 04:00 Intake and Output 09/22/18 09/22/18 09/23/18 1515:00 23:00 07:00 IntakeIntake Total 1452.813 ml 846.3730 ml 1133.441 ml OutputOutput Total 245 ml 300 ml 470 ml BalanceBalance 1207.813 ml 546.3730 ml 663.441 ml Constitutional: alert, oriented ENMT: intubated, other (Nasogastric tube in place for feeding) Respiratory: clear to auscultation, normal air movement Cardiovascular: regular rate and rhythm, nl pulses Gastrointestinal: soft, nl liver, spleen, non-tender Results Results 24hrs Laboratory Tests Test 09/22/18 09:56 09/23/18 04:19 09/23/18 04:20 09/23/18 05:00 Rapid Plasma NONREACTIVE Reagin Hepatitis B POSITIVE H Surface Antigen Hepatitis C NEGATIVE Antibody Lactic Acid Level 1.1 White Blood Count 9.4 Red Blood Count 2.50 L Hemoglobin 8.0 L Hematocrit 24.2 L Mean Corpuscular 96.8 Volume Mean Corpuscular 32.0 Hemoglobin Mean Corpuscular 33.1 Hemoglobin Concen t Red Cell 13.4 Distribution Width Platelet Count 151 Mean Platelet 10.5 H Volume Immature 0.500 H Granulocytes % Neutrophils % 73.4 Lymphocytes % 10.3 L Monocytes % 11.8 H Eosinophils % 3.7 Basophils % 0.3 Nucleated Red 0.0 Blood Cells % Immature 0.050 H Granulocytes # Neutrophils # 6.9 Lymphocytes # 1.0 Monocytes # 1.1 H Eosinophils # 0.4 Basophils # 0.0 Nucleated Red 0.0 Blood Cells # Phosphorus Level 2.3 L Blood Gas Blood arterial Specimen Source Arterial Blood 09/23/2018 4:45:0 Date Drawn 1 AM Arterial Blood pH 7.452 H (Temp corrected) Arterial Blood 32.9 L pCO2 (Temp correct) Arterial Blood 163.8 H pO2 (Temp corrected) Arterial Blood 22.5 HCO3 Arterial Blood -1.0 Base Excess Arterial Blood 98.7 H Oxygen Saturation Tino Test ACCEPTAB Arterial Blood Right Radial Gas Puncture Site Arterial 0.3 Blood Carboxyhemo globin Arterial Blood 0.2 Methemoglobin Blood Gas A-a O2 11.4 Differential Oxyhemoglobin 98.2 Percent Blood Gas 37.0 Temperature Blood Gas 14.0 Respiration Rate Blood Gas Actual 14 Respiration Rate Blood Gas VENT - AC Modality FiO2 30.0 Blood Gas Tidal 400.0 Volume Blood Gas Low 5.0 PEEP Setting Blood Gas LEEANN Notified Whom Blood Gas 09/23/2018 5:06:1 Notified Time 2 AM Test 09/23/18 06:09 Sodium Level 130 L Potassium Level 4.6 Chloride Level 104 Carbon Dioxide 23 Level Anion Gap 3 L Blood Urea 10 Nitrogen Creatinine 0.47 Est Glomerular > 60 Filtrat Rate mL/min Glucose Level 146 Calcium Level 7.6 L Medications Medication Current Medications IV Flush (NS 3 ml) 3 ml PER PROTOCOL IV ; Start 09/17/18 at 03:30 Ondansetron HCl (Zofran Inj) 4 mg Q6H PRN IV NAUSEA/VOMITING; Start 09/17/18 at 03:30 Acetaminophen (Tylenol Tab) 650 mg Q6H PRN PO .PAIN 1-3 OR TEMP; Start 09/17/18 at 03:30 Docusate Sodium (Colace) 100 mg Q12H PRN PO .CONSTIPATION; Start 09/17/18 at 03:30 Magnesium Hydroxide (Milk Of Mag) 30 ml DAILY PRN PO .CONSTIPATION; Start 09/17/18 at 03:30 Pantoprazole (Protonix Iv) 40 mg DAILY@06 IV Last administered on 09/23/18at 05:08; Admin Dose 40 MG; Start 09/17/18 at 06:00 Heparin Sodium (Porcine) (Heparin (5000 Units/1ml)) 5,000 unit Q12 SC Last administered on 09/22/18at 20:18; Admin Dose 5,000 UNIT; Start 09/17/18 at 09:00 Albuterol/ Ipratropium (Duoneb) 3 ml Q4H RESP THERAPY PRN HHN SHORTNESS OF BREATH; Start 09/17/18 at 03:30 Hydralazine HCl (Apresoline) 10 mg Q6H PRN IV ELEVATED BLOOD PRESSURE; Start 09/17/18 at 03:30 Nitroglycerin (Nitroglycerin (Sl Tab) 0.4 Mg) 1 tab Q5M PRN SL ANGINA; Start 09/17/18 at 03:30 Lorazepam (Ativan) 1 mg Q2H PRN IV SEIZURES Last administered on 09/17/18at 03:57; Admin Dose 1 MG; Start 09/17/18 at 03:30 Miscellaneous Information (Pending Santyl Order For Wound Care) This patient goel... PRN PRN XX WOUND CARE; Start 09/17/18 at 05:00 Propofol 100 ml @ 1.227 mls/ hr Q12H IV ; Start 09/18/18 at 21:00 Norepinephrine 250 ml @ 1.875 mls/ hr TITRATE IV Last administered on 09/21/18at 15:22; Admin Dose 7.5 MLS/HR; Start 09/18/18 at 23:00 Collagenase (Santyl) 1 applic DAILY TOP Last administered on 09/22/18at 10:22; Admin Dose 1 APPLIC; Start 09/19/18 at 11:30 IV Flush (NS 10 ml) 10 ml PRN PRN IV IV PROTOCOL; Start 09/19/18 at 15:00 Cefepime HCl 50 ml @ 100 mls/hr Q12 IVPB Last administered on 09/22/18at 20:16; Admin Dose 100 MLS/HR; Start 09/21/18 at 13:00 Levetiracetam 100 ml @ 400 mls/hr Q12 IVPB Last administered on 09/22/18at 20:13; Admin Dose 400 MLS/HR; Start 09/22/18 at 21:00 Dextrose/Lactated Ringer's 1,000 ml @ 75 mls/hr [id number] IV ; Start 09/23/18 at 09:00; Status SANJU HERRERA MD Sep 23, 2018 08:45
[2018-09-23] MEDS: PROPOFOL 100 ML IV SCH ×2 (09:00→21:00)
[2018-09-23] MEDS: COLLAGENASE 5 GM (UD JAR) TOP SCH (09:52)
[2018-09-23] MEDS: CEFEPIME 1GM/50 ML (PMX) 50 ML IVPB SCH ×2 (09:53→20:46)
[2018-09-23] MEDS: DEXTROSE 5%-LR 1,000 ML IV SCH (09:54)
--- NOTE | 2018-09-23 09:55 | CONS ---
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 She was additionally reported to have a seizure... for which neurology is co nsulted. Most clinically consistent with new onset epilepsy. Initial EEG was notable for GPEDs and an electrographic seizure originating in the R temporal region.. s/p Dilantin load, with ongoing episodic staring spells (presumed seizures) noted clinically.. s/p Phenobarbital load on 09/18..with resolution of episodes suspicious for seizure P: Repeat EEG today Repeat phb level today Continue Keppra bid for now Limit other sedating medications where possible Other medical management per primary Will follow clinically Consultation Date/Type/Reason Admit Date/Time Sep 16, 2018 at 22:12 Type of Consult Neurology Requesting Provider: ANGELLA PERRIN Date/Time of Note DATE: 09/23/18 TIME: 09:52 Exam Vital Signs Vitals Vital Signs Date Temp Pulse Resp B/P (MAP) Pulse Ox O2 O2 Flow FiO2 Time Delivery Rate 09/23/18 83 08:00 09/23/18 16 94/67 (76) 100 Mechanical 06:00 Ventilator 09/23/18 30 05:15 09/23/18 98.2 04:00 Intake and Output 09/22/18 09/22/18 09/23/18 1515:00 23:00 07:00 IntakeIntake Total 1452.813 ml 846.3730 ml 1133.441 ml OutputOutput Total 245 ml 300 ml 470 ml BalanceBalance 1207.813 ml 546.3730 ml 663.441 ml Exam PE: Gen Appearance: No Apparent Distress HEENT: Intubated Cardiovascular: Regular rate Abdomen: Soft Extremities: Dry NE: The patient was comatose...with forced downgaze.. Cranial nerve examination was limited by mental status. Face was grossly symmetric, w/ present corneal and cough reflexes. Tone was normal. Muscle bulk was reduced. I did not see fasciculations. The patient did not withdraw to noxious stimulation x 4. Coordination and gait testing was limited by mental status. Arm and leg reflexes were within normal limits and symmetric. Hudson's sign was absent. Plantar responses were flexor. CA ZURITA Sep 23, 2018 09:55
[2018-09-23] MEDS: HEPARIN 5,000 UNIT/1 ML VIAL SC SCH ×2 (10:09→20:48)
[2018-09-23] MEDS: LEVETIRACETAM 500 MG (PMX) 100 ML IVPB SCH ×2 (12:16→20:46)
--- NOTE | 2018-09-23 12:30 | CONS ---
Consult Date/Type/Reason Admit Date/Time Sep 16, 2018 at 22:12 Initial Consult Date 09/18/18 Type of Consultation: Pulm/CCM Requesting Provider: ANGELLA PERRIN Date/Time of Note DATE: 09/23/18 TIME: 12:28 Subjective No events. EEG reviewed. [facility] Objective Vitals Vital Signs Date Temp Pulse Resp B/P (MAP) Pulse Ox O2 O2 Flow FiO2 Time Delivery Rate 09/23/18 75 14 96/66 (76) 100 10:45 09/23/18 Mechanical 10:00 Ventilator 09/23/18 97.5 08:00 09/23/18 30 08:00 Intake and Output 09/22/18 09/22/18 09/23/18 1515:00 23:00 07:00 IntakeIntake Total 1452.813 ml 846.3730 ml 1255.004 ml OutputOutput Total 245 ml 300 ml 470 ml BalanceBalance 1207.813 ml 546.3730 ml 785.004 ml Exam HEENT: Neck supple; no JVD; no LAD; + ET tube CVS: RRR, S1 and S2; CHEST: Clear ABD: Soft, NT, + BS EXT: No c/c/e Results/Medications Result Diagram: 09/23/18 0420 09/23/18 0609 Results 24 hrs Laboratory Tests Test 09/23/18 04:19 09/23/18 04:20 09/23/18 05:00 09/23/18 06:09 Lactic Acid Level 1.1 White Blood Count 9.4 Red Blood Count 2.50 L Hemoglobin 8.0 L Hematocrit 24.2 L Mean Corpuscular 96.8 Volume Mean Corpuscular 32.0 Hemoglobin Mean Corpuscular 33.1 Hemoglobin Concen t Red Cell 13.4 Distribution Width Platelet Count 151 Mean Platelet 10.5 H Volume Immature 0.500 H Granulocytes % Neutrophils % 73.4 Lymphocytes % 10.3 L Monocytes % 11.8 H Eosinophils % 3.7 Basophils % 0.3 Nucleated Red 0.0 Blood Cells % Immature 0.050 H Granulocytes # Neutrophils # 6.9 Lymphocytes # 1.0 Monocytes # 1.1 H Eosinophils # 0.4 Basophils # 0.0 Nucleated Red 0.0 Blood Cells # Phosphorus Level 2.3 L Blood Gas Blood arterial Specimen Source Arterial Blood 09/23/2018 4:45:0 Date Drawn 1 AM Arterial Blood pH 7.452 H (Temp corrected) Arterial Blood 32.9 L pCO2 (Temp correct) Arterial Blood 163.8 H pO2 (Temp corrected) Arterial Blood 22.5 HCO3 Arterial Blood -1.0 Base Excess Arterial Blood 98.7 H Oxygen Saturation Tino Test ACCEPTAB Arterial Blood Right Radial Gas Puncture Site Arterial 0.3 Blood Carboxyhemo globin Arterial Blood 0.2 Methemoglobin Blood Gas A-a O2 11.4 Differential Oxyhemoglobin 98.2 Percent Blood Gas 37.0 Temperature Blood Gas 14.0 Respiration Rate Blood Gas Actual 14 Respiration Rate Blood Gas VENT - AC Modality FiO2 30.0 Blood Gas Tidal 400.0 Volume Blood Gas Low 5.0 PEEP Setting Blood Gas LEEANN Notified Whom Blood Gas 09/23/2018 5:06:1 Notified Time 2 AM Sodium Level 130 L Potassium Level 4.6 Chloride Level 104 Carbon Dioxide 23 Level Anion Gap 3 L Blood Urea 10 Nitrogen Creatinine 0.47 Est Glomerular > 60 Filtrat Rate mL/min Glucose Level 146 Calcium Level 7.6 L Test 09/23/18 10:40 Stool Occult NEGATIVE Blood Home Meds Reported Medications Cyanocobalamin* (Vitamin B-12*) 50 Mcg Tablet, 50 MCG PO DAILY, TAB 09/17/18 Amlodipine Besylate* (Amlodipine Besylate*) 2.5 Mg Tablet, 5 MG PO DAILY, #30 TAB 09/17/18 Risperidone* (Risperidone*) 0.5 Mg Tablet, 0.5 MG PO DAILY, TAB 09/17/18 Lamotrigine* (Lamotrigine*) 25 Mg Tablet, 25 MG PO DAILY, TAB 09/17/18 Benztropine Mesylate* (Benztropine Mesylate*) 2 Mg Tablet, 2 MG PO BID, TAB 09/17/18 Medications Current Medications IV Flush (NS 3 ml) 3 ml PER PROTOCOL IV ; Start 09/17/18 at 03:30 Ondansetron HCl (Zofran Inj) 4 mg Q6H PRN IV NAUSEA/VOMITING; Start 09/17/18 at 03:30 Acetaminophen (Tylenol Tab) 650 mg Q6H PRN PO .PAIN 1-3 OR TEMP; Start 09/17/18 at 03:30 Docusate Sodium (Colace) 100 mg Q12H PRN PO .CONSTIPATION; Start 09/17/18 at 03:30 Magnesium Hydroxide (Milk Of Mag) 30 ml DAILY PRN PO .CONSTIPATION; Start 09/17/18 at 03:30 Pantoprazole (Protonix Iv) 40 mg DAILY@06 IV Last administered on 09/23/18at 05:08; Admin Dose 40 MG; Start 09/17/18 at 06:00 Heparin Sodium (Porcine) (Heparin (5000 Units/1ml)) 5,000 unit Q12 SC Last administered on 09/23/18at 10:09; Admin Dose 5,000 UNIT; Start 09/17/18 at 09:00 Albuterol/ Ipratropium (Duoneb) 3 ml Q4H RESP THERAPY PRN HHN SHORTNESS OF BREATH; Start 09/17/18 at 03:30 Hydralazine HCl (Apresoline) 10 mg Q6H PRN IV ELEVATED BLOOD PRESSURE; Start 09/17/18 at 03:30 Nitroglycerin (Nitroglycerin (Sl Tab) 0.4 Mg) 1 tab Q5M PRN SL ANGINA; Start 09/17/18 at 03:30 Lorazepam (Ativan) 1 mg Q2H PRN IV SEIZURES Last administered on 09/17/18at 03:57; Admin Dose 1 MG; Start 09/17/18 at 03:30 Miscellaneous Information (Pending Santyl Order For Wound Care) This patient goel... PRN PRN XX WOUND CARE; Start 09/17/18 at 05:00 Propofol 100 ml @ 1.227 mls/ hr Q12H IV ; Start 09/18/18 at 21:00 Norepinephrine 250 ml @ 1.875 mls/ hr TITRATE IV Last administered on 09/21/18at 15:22; Admin Dose 7.5 MLS/HR; Start 09/18/18 at 23:00 Collagenase (Santyl) 1 applic DAILY TOP Last administered on 09/23/18at 09:52; Admin Dose 1 APPLIC; Start 09/19/18 at 11:30 IV Flush (NS 10 ml) 10 ml PRN PRN IV IV PROTOCOL; Start 09/19/18 at 15:00 Cefepime HCl 50 ml @ 100 mls/hr Q12 IVPB Last administered on 09/23/18at 09:53; Admin Dose 100 MLS/HR; Start 09/21/18 at 13:00 Levetiracetam 100 ml @ 400 mls/hr Q12 IVPB Last administered on 09/23/18at 12:16; Admin Dose 400 MLS/HR; Start 09/22/18 at 21:00 Dextrose/Lactated Ringer's 1,000 ml @ 20 mls/hr Q24H IV Last administered on 09/23/18at 09:54; Admin Dose 20 MLS/HR; Start 09/23/18 at 09:00 Assessment/Plan Assessment/Plan (Daily) IMP: 1. Encephalopathy--post-ictal state s/p status epilepticus. 2. Vent Dependence / #1 3. Metabolic acidosis likely secondary to hypoperfusion. Now improved 4. Septic Shock 5. s/p lactic acidosis RECS: 1. Titrate levophed to MAP > 65 mm Hg 2. Intravenous antibiotics; de-escalate pending cultures 3. Continue antiepileptics per Neuro 4. Minimize sedation; continue to follow neuro exam 5. DVT and GI prophylaxis cc 40mins. SAIMA MELENDEZ MD Sep 23, 2018 12:30
--- NOTE | 2018-09-23 13:34 | EEG ---
EEG NOTE Report Details DATE OF TEST: 09/23/18 HISTORY: The patient is a 58-year-old F who presents with altered mental status. This EEG is requested to rule out nonconvulsive status epilepticus. SEDATION: None. CONDITIONS OF RECORDING: This EEG was recorded digitally on the [employer] machine, using the [employer] 10-20 System of electrodes plus anterior temporals and [place]. STATES SAMPLED: Comatose. FINDINGS: The background is discontinuous, though symmetric.. There is occasional theta and delta activity.. The normal [id number] frequency-amplitude gradient was absent. Photic stimulation does not elicit any definite driving responses or epileptiform discharges. Hyperventilation was not performed. No epileptiform discharges were seen. IMPRESSION: Abnormal electroencephalogram due to: severe diffuse slowing. COMMENT: The slowing of the background indicates severe, diffuse cortical dysfunction of nonspecific etiology. CA ZURITA Sep 23, 2018 13:34
[2018-09-23] MEDS: NORepinephrine 8MG/250 ML (PMX 250 ML IV SCH (16:40)
--- NOTE | 2018-09-23 19:06 | CONS ---
Assessment/Plan Assessment/Plan Hospital Course (Demo Recall) No acute changes patient remains intubated on Levophed at 3 mics per minute afebrile. WBC 9.4 platelets 151 neutrophils 73.4 BUN 10 creatinine 0.47 Chest x-ray revealed opacities in the left lung base Antimicrobials: Cefepime Microbiology: Urine culture grew Streptococcus, sputum culture growing pseudomonas aeruginosa Indwelling: Endotracheal tube orogastric tube Prince catheter left upper extremity PICC line Physical examination: Well-developed chronically ill-appearing middle-aged woman who is intubated in no distress. Head atraumatic normocephalic. Sclera nonicteric. Neck is supple. Chest rise symmetrical, breath sounds diminished bases. Heart: S1-S2. Abdomen soft bowel sounds present, hypoactive. Extremities cyanotic with trace edema Assessment: 1. Septic shock 2. Gram-positive cocci bacteremia cw contaminant 3. Respiratory failure 4. 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 Acute on chronic encephalopathy 6. Urinary tract infection Plan: Remains hemodynamically unstable, continue present care antibiotics Consultation Date/Type/Reason Admit Date/Time Sep 16, 2018 at 22:12 Initial Consult Date 09/18/18 Type of Consult id Requesting Provider: ANGELLA PERRIN Date/Time of Note DATE: 09/23/18 TIME: 19:05 Exam/Review of Systems Exam Vitals Vital Signs Date Temp Pulse Resp B/P (MAP) Pulse Ox O2 O2 Flow FiO2 Time Delivery Rate 09/23/18 90 15 100 30 17:30 09/23/18 96/66 (76) 10:45 09/23/18 Mechanical 10:00 Ventilator 09/23/18 97.5 08:00 Intake and Output 09/22/18 09/22/18 09/23/18 1515:00 23:00 07:00 IntakeIntake Total 1452.813 ml 846.3730 ml 1255.004 ml OutputOutput Total 245 ml 300 ml 470 ml BalanceBalance 1207.813 ml 546.3730 ml 785.004 ml Results Result Diagram: 09/23/18 0420 09/23/18 0609 Results 24hrs Laboratory Tests Test 09/23/18 04:19 09/23/18 04:20 09/23/18 05:00 09/23/18 06:09 Lactic Acid Level 1.1 White Blood Count 9.4 Red Blood Count 2.50 L Hemoglobin 8.0 L Hematocrit 24.2 L Mean Corpuscular 96.8 Volume Mean Corpuscular 32.0 Hemoglobin Mean Corpuscular 33.1 Hemoglobin Concen t Red Cell 13.4 Distribution Width Platelet Count 151 Mean Platelet 10.5 H Volume Immature 0.500 H Granulocytes % Neutrophils % 73.4 Lymphocytes % 10.3 L Monocytes % 11.8 H Eosinophils % 3.7 Basophils % 0.3 Nucleated Red 0.0 Blood Cells % Immature 0.050 H Granulocytes # Neutrophils # 6.9 Lymphocytes # 1.0 Monocytes # 1.1 H Eosinophils # 0.4 Basophils # 0.0 Nucleated Red 0.0 Blood Cells # Phosphorus Level 2.3 L Blood Gas Blood arterial Specimen Source Arterial Blood 09/23/2018 4:45:0 Date Drawn 1 AM Arterial Blood pH 7.452 H (Temp corrected) Arterial Blood 32.9 L pCO2 (Temp correct) Arterial Blood 163.8 H pO2 (Temp corrected) Arterial Blood 22.5 HCO3 Arterial Blood -1.0 Base Excess Arterial Blood 98.7 H Oxygen Saturation Tino Test ACCEPTAB Arterial Blood Right Radial Gas Puncture Site Arterial 0.3 Blood Carboxyhemo globin Arterial Blood 0.2 Methemoglobin Blood Gas A-a O2 11.4 Differential Oxyhemoglobin 98.2 Percent Blood Gas 37.0 Temperature Blood Gas 14.0 Respiration Rate Blood Gas Actual 14 Respiration Rate Blood Gas VENT - AC Modality FiO2 30.0 Blood Gas Tidal 400.0 Volume Blood Gas Low 5.0 PEEP Setting Blood Gas LEEANN Notified Whom Blood Gas 09/23/2018 5:06:1 Notified Time 2 AM Sodium Level 130 L Potassium Level 4.6 Chloride Level 104 Carbon Dioxide 23 Level Anion Gap 3 L Blood Urea 10 Nitrogen Creatinine 0.47 Est Glomerular > 60 Filtrat Rate mL/min Glucose Level 146 Calcium Level 7.6 L Test 09/23/18 10:40 Stool Occult NEGATIVE Blood Medications Medication Current Medications IV Flush (NS 3 ml) 3 ml PER PROTOCOL IV ; Start 09/17/18 at 03:30 Ondansetron HCl (Zofran Inj) 4 mg Q6H PRN IV NAUSEA/VOMITING; Start 09/17/18 at 03:30 Acetaminophen (Tylenol Tab) 650 mg Q6H PRN PO .PAIN 1-3 OR TEMP; Start 09/17/18 at 03:30 Docusate Sodium (Colace) 100 mg Q12H PRN PO .CONSTIPATION; Start 09/17/18 at 03:30 Magnesium Hydroxide (Milk Of Mag) 30 ml DAILY PRN PO .CONSTIPATION; Start 09/17/18 at 03:30 Pantoprazole (Protonix Iv) 40 mg DAILY@06 IV Last administered on 09/23/18at 05:08; Admin Dose 40 MG; Start 09/17/18 at 06:00 Heparin Sodium (Porcine) (Heparin (5000 Units/1ml)) 5,000 unit Q12 SC Last administered on 09/23/18at 10:09; Admin Dose 5,000 UNIT; Start 09/17/18 at 09:00 Albuterol/ Ipratropium (Duoneb) 3 ml Q4H RESP THERAPY PRN HHN SHORTNESS OF BREATH; Start 09/17/18 at 03:30 Hydralazine HCl (Apresoline) 10 mg Q6H PRN IV ELEVATED BLOOD PRESSURE; Start 09/17/18 at 03:30 Nitroglycerin (Nitroglycerin (Sl Tab) 0.4 Mg) 1 tab Q5M PRN SL ANGINA; Start 09/17/18 at 03:30 Lorazepam (Ativan) 1 mg Q2H PRN IV SEIZURES Last administered on 09/17/18at 03:57; Admin Dose 1 MG; Start 09/17/18 at 03:30 Miscellaneous Information (Pending Santyl Order For Wound Care) This patient goel... PRN PRN XX WOUND CARE; Start 09/17/18 at 05:00 Propofol 100 ml @ 1.227 mls/ hr Q12H IV ; Start 09/18/18 at 21:00 Norepinephrine 250 ml @ 1.875 mls/ hr TITRATE IV Last administered on 09/23/18at 16:40; Admin Dose 6.563 MLS/HR; Start 09/18/18 at 23:00 Collagenase (Santyl) 1 applic DAILY TOP Last administered on 09/23/18at 09:52; Admin Dose 1 APPLIC; Start 09/19/18 at 11:30 IV Flush (NS 10 ml) 10 ml PRN PRN IV IV PROTOCOL; Start 09/19/18 at 15:00 Cefepime HCl 50 ml @ 100 mls/hr Q12 IVPB Last administered on 09/23/18at 09:53; Admin Dose 100 MLS/HR; Start 09/21/18 at 13:00 Levetiracetam 100 ml @ 400 mls/hr Q12 IVPB Last administered on 09/23/18at 12:16; Admin Dose 400 MLS/HR; Start 09/22/18 at 21:00 Dextrose/Lactated Ringer's 1,000 ml @ 20 mls/hr Q24H IV Last administered on 09/23/18at 09:54; Admin Dose 20 MLS/HR; Start 09/23/18 at 09:00 ZHANE TERAN NP Sep 23, 2018 19:06
[2018-09-24] VITALS (105 sets, daily range): BP systolic 80–125; BP diastolic 54–84; PULSE 67–89; RESP 7–21
[2018-09-24] MEDS: PANTOPRAZOLE 40 MG INJ IV SCH (05:43)
[2018-09-24] MEDS: LEVETIRACETAM 500 MG (PMX) 100 ML IVPB SCH (08:18)
[2018-09-24] MEDS: COLLAGENASE 5 GM (UD JAR) TOP SCH (08:20)
[2018-09-24] MEDS: HEPARIN 5,000 UNIT/1 ML VIAL SC SCH ×2 (08:22→20:40)
[2018-09-24] MEDS: PROPOFOL 100 ML IV SCH ×2 (09:00→21:00)
[2018-09-24] MEDS: CEFEPIME 1GM/50 ML (PMX) 50 ML IVPB SCH ×2 (09:43→20:38)
--- NOTE | 2018-09-24 09:55 | CONS ---
Consult Date/Type/Reason Admit Date/Time Sep 16, 2018 at 22:12 Initial Consult Date 09/18/18 Type of Consult Pulmonary Requesting Provider: ANGELLA PERRIN Date/Time of Note DATE: 09/24/18 TIME: 09:54 Subjective Still somnolent on mechanical ventilation despite absence of sedation. Objective Vital Signs Date Temp Pulse Resp B/P (MAP) Pulse Ox O2 O2 Flow FiO2 Time Delivery Rate 09/24/18 70 14 100/70 100 08:45 (80) 09/24/18 97.3 Mechanical 08:00 Ventilator 09/24/18 30 08:00 Intake and Output 09/23/18 09/23/18 09/24/18 1515:00 23:00 07:00 IntakeIntake Total 812.504 ml 681.941 ml 678.238 ml OutputOutput Total 800 ml 700 ml 775 ml BalanceBalance 12.504 ml -18.059 ml -96.762 ml Exam GENERAL: Chronically ill-appearing lady on mechanical ventilation VITAL SIGNS: per chart NECK: Supple. No JVD or lymphadenopathy. CARDIAC EXAM: S1, S2. No added sounds or murmurs. CHEST: clear bilaterally, No added sounds, rales or wheezes ABDOMEN: Soft, nontender. No guarding or rebound. EXTREMITIES: No cyanosis, clubbing or edema. NEUROLOGIC: Generalized weakness. No focal deficits. Vent Setting Ventilator Support Mode: AC Fraction of Inspired Oxygen pe: 30 Positive End Expiratory Pressu: 5.0 Results/Medications Result Diagram: 09/24/18 0400 09/24/18 0400 Results 24 hrs Laboratory Tests Test 09/23/18 10:40 09/24/18 04:00 Stool Occult Blood NEGATIVE White Blood Count 10.3 Red Blood Count 2.85 L Hemoglobin 8.9 L Hematocrit 26.4 L Mean Corpuscular Volume 92.6 Mean Corpuscular Hemoglobin 31.2 Mean Corpuscular Hemoglobin Concent 33.7 Red Cell Distribution Width 13.2 Platelet Count 108 #L Mean Platelet Volume 11.2 H Immature Granulocytes % 0.700 H Neutrophils % 66.1 Lymphocytes % 14.2 L Monocytes % 14.9 H Eosinophils % 3.6 Basophils % 0.5 Nucleated Red Blood Cells % 0.0 Immature Granulocytes # 0.070 H Neutrophils # 6.8 Lymphocytes # 1.5 Monocytes # 1.5 H Eosinophils # 0.4 Basophils # 0.1 Nucleated Red Blood Cells # 0.0 Sodium Level 135 Potassium Level 3.7 Chloride Level 105 Carbon Dioxide Level 29 Anion Gap 1 L Blood Urea Nitrogen 11 Creatinine 0.48 Est Glomerular Filtrat Rate mL/min > 60 Glucose Level 138 Lactic Acid Level 1.4 Calcium Level 7.7 L Medications Current Medications IV Flush (NS 3 ml) 3 ml PER PROTOCOL IV ; Start 09/17/18 at 03:30 Ondansetron HCl (Zofran Inj) 4 mg Q6H PRN IV NAUSEA/VOMITING; Start 09/17/18 at 03:30 Acetaminophen (Tylenol Tab) 650 mg Q6H PRN PO .PAIN 1-3 OR TEMP; Start 09/17/18 at 03:30 Docusate Sodium (Colace) 100 mg Q12H PRN PO .CONSTIPATION; Start 09/17/18 at 03:30 Magnesium Hydroxide (Milk Of Mag) 30 ml DAILY PRN PO .CONSTIPATION; Start 09/17/18 at 03:30 Pantoprazole (Protonix Iv) 40 mg DAILY@06 IV Last administered on 09/24/18at 05:43; Admin Dose 40 MG; Start 09/17/18 at 06:00 Heparin Sodium (Porcine) (Heparin (5000 Units/1ml)) 5,000 unit Q12 SC Last administered on 09/24/18at 08:22; Admin Dose 5,000 UNIT; Start 09/17/18 at 09:00 Albuterol/ Ipratropium (Duoneb) 3 ml Q4H RESP THERAPY PRN HHN SHORTNESS OF BREATH; Start 09/17/18 at 03:30 Hydralazine HCl (Apresoline) 10 mg Q6H PRN IV ELEVATED BLOOD PRESSURE; Start 09/17/18 at 03:30 Nitroglycerin (Nitroglycerin (Sl Tab) 0.4 Mg) 1 tab Q5M PRN SL ANGINA; Start 09/17/18 at 03:30 Lorazepam (Ativan) 1 mg Q2H PRN IV SEIZURES Last administered on 09/17/18at 03:57; Admin Dose 1 MG; Start 09/17/18 at 03:30 Miscellaneous Information (Pending [facility] Order For Wound Care) This patient goel... PRN PRN XX WOUND CARE; Start 09/17/18 at 05:00 Propofol 100 ml @ 1.227 mls/ hr Q12H IV ; Start 09/18/18 at 21:00 Norepinephrine 250 ml @ 1.875 mls/ hr TITRATE IV Last administered on 09/23/18at 16:40; Admin Dose 6.563 MLS/HR; Start 09/18/18 at 23:00 Collagenase (Santyl) 1 applic DAILY TOP Last administered on 09/24/18 08:20; Admin Dose 1 APPLIC; Start 09/19/18 at 11:30 IV Flush (NS 10 ml) 10 ml PRN PRN IV IV PROTOCOL; Start 09/19/18 at 15:00 Cefepime HCl 50 ml @ 100 mls/hr Q12 IVPB Last administered on 09/24/18 09:43; Admin Dose 100 MLS/HR; Start 09/21/18 at 13:00 Levetiracetam 100 ml @ 400 mls/hr Q12 IVPB Last administered on 09/24/18 08:18; Admin Dose 400 MLS/HR; Start 09/22/18 at 21:00 Dextrose/Lactated Ringer's 1,000 ml @ 20 mls/hr Q24H IV Last administered on 09/23/18 09:54; Admin Dose 20 MLS/HR; Start 09/23/18 at 09:00 Assessment/Plan Hospital Course (Demo Recall) IMP: 1. Encephalopathy--post-ictal state s/p status epilepticus. 2. Vent Dependence 2/2 #1 3. Metabolic acidosis likely secondary to hypoperfusion. Now improved 4. Status post septic Shock 5. s/p lactic acidosis RECS: 1. Titrate levophed to MAP > 65 mm Hg 2. Intravenous antibiotics; de-escalate pending cultures 3. Continue antiepileptics per Neuro 4. Minimize sedation; continue to follow neuro exam 5. DVT and GI prophylaxis may require tracheostomy given neurological status. Will discuss with family cc 40mins. JODI MOY MD, [facility] Sep 24, 2018 09:55
--- NOTE | 2018-09-24 10:04 | PN ---
Date/Time of Note Date/Time of Note DATE: 09/24/18 TIME: 09:57 Assessment/Plan VTE Prophylaxis Risk score (from Nsg)>0 risk: 5 SCD applied (from Nsg): Yes Pharmacological prophylaxis: heparin Lines/Catheters IV Catheter Type (from Nrsg): PICC Line Central line still needed: Yes Urinary Cath still in place: Yes Reason Cath still needed: other (indicate) Assessment/Plan Hospital Course S: remains intubated, minimally esponsive and on minimal pressor support O: Constitutional: postures to painful stimuli, frail, chronically ill looking Head: atraumatic, normocephalic, NC, LISHA sluggish Neck: non-tender, supple Respiratory: coarse, diminished Cardiovascular: regular rate and rhythm Gastrointestinal: S/ NT / ND / +BS Extremities: no edema, good radial pulses, frail, trace purvi le edema assessment and Plan: 58 yo F with a slow early onset dementia, cause unknown who is non verbal at baseline who was brought in for abnormal jerking behavior concerning for se izures # Seizure requiring intubation for airway protection -continue vent support for now -s/p aggressive seizure control for status epilepticus, has been getting serial EEGs -EEG from 09/23 showed : The slowing of the background indicates severe, diffuse cortical dysfunction of nonspecific etiology. -Neurology managing, patient on Keppra BID only for now -Avoid / Limit sedation if not ordered by neuro #Sespis shock with aspiration PNA and UTI # Chronic dementia/encephalopathy, -nonverbal and bedbound at baseline. Of gradual onset, no organic cause found despite extensive workup per -cared for at home by and children 24hours # Remote History of West Nile virus infection #Chronic dyslipidemia #Chronic hypertension: currently hypotensive #Chronic psychiatric d/c on risperdone with benztropine for tardive dyskinesia ? -dose of benztropine recently reduced all pysch meds on hold for now Plan : -At this time continue ICU monitoring and management, f./u neuro plan, ?prognosis -Continue tube feeds -Continue serial labs and close monitoring -Further interventions will depend on clinical course -POC discussed with nursing staff and consultants - was also called via telephone and given update Care time 40mins Addendum: -Spoke with Neuro, she expects a good recovery from a seizure standpoint, phenobarbital levels ordered, patient needs to clear phenobarb from her system. Result Diagram: 09/24/18 0400 09/24/18 0400 Results 24hrs Laboratory Tests Test 09/23/18 10:40 09/24/18 04:00 Stool Occult Blood NEGATIVE White Blood Count 10.3 Red Blood Count 2.85 L Hemoglobin 8.9 L Hematocrit 26.4 L Mean Corpuscular Volume 92.6 Mean Corpuscular Hemoglobin 31.2 Mean Corpuscular Hemoglobin Concent 33.7 Red Cell Distribution Width 13.2 Platelet Count 108 #L Mean Platelet Volume 11.2 H Immature Granulocytes % 0.700 H Neutrophils % 66.1 Lymphocytes % 14.2 L Monocytes % 14.9 H Eosinophils % 3.6 Basophils % 0.5 Nucleated Red Blood Cells % 0.0 Immature Granulocytes # 0.070 H Neutrophils # 6.8 Lymphocytes # 1.5 Monocytes # 1.5 H Eosinophils # 0.4 Basophils # 0.1 Nucleated Red Blood Cells # 0.0 Sodium Level 135 Potassium Level 3.7 Chloride Level 105 Carbon Dioxide Level 29 Anion Gap 1 L Blood Urea Nitrogen 11 Creatinine 0.48 Est Glomerular Filtrat Rate mL/min > 60 Glucose Level 138 Lactic Acid Level 1.4 Calcium Level 7.7 L Exam/Review of Systems Exam Vitals Vital Signs Date Temp Pulse Resp B/P (MAP) Pulse Ox O2 O2 Flow FiO2 Time Delivery Rate 09/24/18 70 14 100/70 100 08:45 (80) 09/24/18 97.3 Mechanical 08:00 Ventilator 09/24/18 30 08:00 Intake and Output 09/23/18 09/23/18 09/24/18 1414:59 22:59 06:59 IntakeIntake Total 867.504 ml 682.504 ml 721.438 ml OutputOutput Total 800 ml 625 ml 850 ml BalanceBalance 67.504 ml 57.504 ml -128.562 ml Results Results 24hrs Laboratory Tests Test 09/23/18 10:40 09/24/18 04:00 Stool Occult Blood NEGATIVE White Blood Count 10.3 Red Blood Count 2.85 L Hemoglobin 8.9 L Hematocrit 26.4 L Mean Corpuscular Volume 92.6 Mean Corpuscular Hemoglobin 31.2 Mean Corpuscular Hemoglobin Concent 33.7 Red Cell Distribution Width 13.2 Platelet Count 108 #L Mean Platelet Volume 11.2 H Immature Granulocytes % 0.700 H Neutrophils % 66.1 Lymphocytes % 14.2 L Monocytes % 14.9 H Eosinophils % 3.6 Basophils % 0.5 Nucleated Red Blood Cells % 0.0 Immature Granulocytes # 0.070 H Neutrophils # 6.8 Lymphocytes # 1.5 Monocytes # 1.5 H Eosinophils # 0.4 Basophils # 0.1 Nucleated Red Blood Cells # 0.0 Sodium Level 135 Potassium Level 3.7 Chloride Level 105 Carbon Dioxide Level 29 Anion Gap 1 L Blood Urea Nitrogen 11 Creatinine 0.48 Est Glomerular Filtrat Rate mL/min > 60 Glucose Level 138 Lactic Acid Level 1.4 Calcium Level 7.7 L Imaging Imaging EEG 09/24 IMPRESSION: Abnormal electroencephalogram due to: severe diffuse slowing. COMMENT: The slowing of the background indicates severe, diffuse cortical dysfunction of nonspecific etiology. Medications Medication Current Medications IV Flush (NS 3 ml) 3 ml PER PROTOCOL IV ; Start 09/17/18 at 03:30 Ondansetron HCl (Zofran Inj) 4 mg Q6H PRN IV NAUSEA/VOMITING; Start 09/17/18 at 03:30 Acetaminophen (Tylenol Tab) 650 mg Q6H PRN PO .PAIN 1-3 OR TEMP; Start 09/17/18 at 03:30 Docusate Sodium (Colace) 100 mg Q12H PRN PO .CONSTIPATION; Start 09/17/18 at 03:30 Magnesium Hydroxide (Milk Of Mag) 30 ml DAILY PRN PO .CONSTIPATION; Start 09/17/18 at 03:30 Pantoprazole (Protonix Iv) 40 mg DAILY@06 IV Last administered on 09/24/18at 05:43; Admin Dose 40 MG; Start 09/17/18 at 06:00 Heparin Sodium (Porcine) (Heparin (5000 Units/1ml)) 5,000 unit Q12 SC Last administered on 09/24/18at 08:22; Admin Dose 5,000 UNIT; Start 09/17/18 at 09:00 Albuterol/ Ipratropium (Duoneb) 3 ml Q4H RESP THERAPY PRN HHN SHORTNESS OF BREATH; Start 09/17/18 at 03:30 Hydralazine HCl (Apresoline) 10 mg Q6H PRN IV ELEVATED BLOOD PRESSURE; Start 09/17/18 at 03:30 Nitroglycerin (Nitroglycerin (Sl Tab) 0.4 Mg) 1 tab Q5M PRN SL ANGINA; Start 09/17/18 at 03:30 Lorazepam (Ativan) 1 mg Q2H PRN IV SEIZURES Last administered on 09/17/18 03:57; Admin Dose 1 MG; Start 09/17/18 at 03:30 Miscellaneous Information (Pending Santyl Order For Wound Care) This patient goel... PRN PRN XX WOUND CARE; Start 09/17/18 at 05:00 Propofol 100 ml @ 1.227 mls/ hr Q12H IV ; Start 09/18/18 at 21:00 Norepinephrine 250 ml @ 1.875 mls/ hr TITRATE IV Last administered on 09/23/18 t 16:40; Admin Dose 6.563 MLS/HR; Start 09/18/18 at 23:00 Collagenase (Santyl) 1 applic DAILY TOP Last administered on 09/24/18 08:20; Admin Dose 1 APPLIC; Start 09/19/18 at 11:30 IV Flush (NS 10 ml) 10 ml PRN PRN IV IV PROTOCOL; Start 09/19/18 at 15:00 Cefepime HCl 50 ml @ 100 mls/hr Q12 IVPB Last administered on 09/24/18 09:43; Admin Dose 100 MLS/HR; Start 09/21/18 at 13:00 Levetiracetam 100 ml @ 400 mls/hr Q12 IVPB Last administered on 09/24/18 08:18; Admin Dose 400 MLS/HR; Start 09/22/18 at 21:00 Dextrose/Lactated Ringer's 1,000 ml @ 20 mls/hr Q24H IV Last administered on 09/23/18 09:54; Admin Dose 20 MLS/HR; Start 09/23/18 at 09:00 DYLAN RAMOS Sep 24, 2018 10:04
--- NOTE | 2018-09-24 11:13 | CONS ---
Assessment/Plan Assessment/Plan Hospital Course (Demo Recall) No acute events overnight patient is on low-dose levo fed looks comfortable no fevers WBC 10.3 platelets 108 neutrophils 66.1 BUN 11 creatinine 0.48 Antimicrobials: Cefepime Microbiology: Urine culture grew Streptococcus, sputum culture growing pseudomonas aeruginosa Indwelling: Endotracheal tube orogastric tube Prince catheter left upper extremity PICC line Physical examination: Well-developed chronically ill-appearing middle-aged woman who is intubated in no distress. Head atraumatic normocephalic. Sclera nonicteric. Neck is supple. Chest rise symmetrical, breath sounds diminished bases. Heart: S1-S2. Abdomen soft bowel sounds present, hypoactive. Extremities cyanotic with trace edema Assessment: 1. Sepsis, resolving 2. Gram-positive cocci bacteremia cw contaminant 3. Respiratory failure 4. 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 Acute on chronic encephalopathy 6. Urinary tract infection Plan: Slowly improving, continue present care, antibiotics Consultation Date/Type/Reason Admit Date/Time Sep 16, 2018 at 22:12 Initial Consult Date 09/18/18 Type of Consult id Requesting Provider: ANGELLA PERRIN Date/Time of Note DATE: 09/24/18 TIME: 11:13 Exam/Review of Systems Exam Vitals Vital Signs Date Temp Pulse Resp B/P (MAP) Pulse Ox O2 O2 Flow FiO2 Time Delivery Rate 09/24/18 70 14 100/70 100 08:45 (80) 09/24/18 97.3 Mechanical 08:00 Ventilator 09/24/18 30 08:00 Intake and Output 09/23/18 09/23/18 09/24/18 1515:00 23:00 07:00 IntakeIntake Total 812.504 ml 681.941 ml 718.238 ml OutputOutput Total 800 ml 700 ml 875 ml BalanceBalance 12.504 ml -18.059 ml -156.762 ml Results Result Diagram: 09/24/18 0400 09/24/18 0400 Results 24hrs Laboratory Tests Test 09/24/18 04:00 White Blood Count 10.3 Red Blood Count 2.85 L Hemoglobin 8.9 L Hematocrit 26.4 L Mean Corpuscular Volume 92.6 Mean Corpuscular Hemoglobin 31.2 Mean Corpuscular Hemoglobin Concent 33.7 Red Cell Distribution Width 13.2 Platelet Count 108 #L Mean Platelet Volume 11.2 H Immature Granulocytes % 0.700 H Neutrophils % 66.1 Lymphocytes % 14.2 L Monocytes % 14.9 H Eosinophils % 3.6 Basophils % 0.5 Nucleated Red Blood Cells % 0.0 Immature Granulocytes # 0.070 H Neutrophils # 6.8 Lymphocytes # 1.5 Monocytes # 1.5 H Eosinophils # 0.4 Basophils # 0.1 Nucleated Red Blood Cells # 0.0 Sodium Level 135 Potassium Level 3.7 Chloride Level 105 Carbon Dioxide Level 29 Anion Gap 1 L Blood Urea Nitrogen 11 Creatinine 0.48 Est Glomerular Filtrat Rate mL/min > 60 Glucose Level 138 Lactic Acid Level 1.4 Calcium Level 7.7 L Medications Medication Current Medications IV Flush (NS 3 ml) 3 ml PER PROTOCOL IV ; Start 09/17/18 at 03:30 Ondansetron HCl (Zofran Inj) 4 mg Q6H PRN IV NAUSEA/VOMITING; Start 09/17/18 at 03:30 Acetaminophen (Tylenol Tab) 650 mg Q6H PRN PO .PAIN 1-3 OR TEMP; Start 09/17/18 at 03:30 Docusate Sodium (Colace) 100 mg Q12H PRN PO .CONSTIPATION; Start 09/17/18 at 03:30 Magnesium Hydroxide (Milk Of Mag) 30 ml DAILY PRN PO .CONSTIPATION; Start 09/17/18 at 03:30 Pantoprazole (Protonix Iv) 40 mg DAILY@06 IV Last administered on 09/24/18at 05:43; Admin Dose 40 MG; Start 09/17/18 at 06:00 Heparin Sodium (Porcine) (Heparin (5000 Units/1ml)) 5,000 unit Q12 SC Last administered on 09/24/18at 08:22; Admin Dose 5,000 UNIT; Start 09/17/18 at 09:00 Albuterol/ Ipratropium (Duoneb) 3 ml Q4H RESP THERAPY PRN HHN SHORTNESS OF BREATH; Start 09/17/18 at 03:30 Hydralazine HCl (Apresoline) 10 mg Q6H PRN IV ELEVATED BLOOD PRESSURE; Start 09/17/18 at 03:30 Nitroglycerin (Nitroglycerin (Sl Tab) 0.4 Mg) 1 tab Q5M PRN SL ANGINA; Start 09/17/18 at 03:30 Lorazepam (Ativan) 1 mg Q2H PRN IV SEIZURES Last administered on 09/17/18 03:57; Admin Dose 1 MG; Start 09/17/18 at 03:30 Miscellaneous Information (Pending Santyl Order For Wound Care) This patient goel... PRN PRN XX WOUND CARE; Start 09/17/18 at 05:00 Propofol 100 ml @ 1.227 mls/ hr Q12H IV ; Start 09/18/18 at 21:00 Norepinephrine 250 ml @ 1.875 mls/ hr TITRATE IV Last administered on 09/23/18 16:40; Admin Dose 6.563 MLS/HR; Start 09/18/18 at 23:00 Collagenase (Santyl) 1 applic DAILY TOP Last administered on 09/24/18 08:20; Admin Dose 1 APPLIC; Start 09/19/18 at 11:30 IV Flush (NS 10 ml) 10 ml PRN PRN IV IV PROTOCOL; Start 09/19/18 at 15:00 Cefepime HCl 50 ml @ 100 mls/hr Q12 IVPB Last administered on 09/24/18 09:43; Admin Dose 100 MLS/HR; Start 09/21/18 at 13:00 Levetiracetam 100 ml @ 400 mls/hr Q12 IVPB Last administered on 09/24/18 08:18; Admin Dose 400 MLS/HR; Start 09/22/18 at 21:00 Dextrose/Lactated Ringer's 1,000 ml @ 20 mls/hr Q24H IV Last administered on 09/23/18 09:54; Admin Dose 20 MLS/HR; Start 09/23/18 at 09:00 ZHANE TERAN NP Sep 24, 2018 11:13
[2018-09-24 12:53] LABS: VARICELLA-ZOSTER VIRUS AB IgM 0.26
--- NOTE | 2018-09-24 13:31 | CONS ---
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 She was additionally reported to have a seizure... for which neurology is co nsulted. Most clinically consistent with new onset epilepsy. Initial EEG was notable for GPEDs and an electrographic seizure originating in the R temporal region.. s/p Dilantin load, with ongoing episodic staring spells (presumed seizures) noted clinically.. s/p Phenobarbital load on 09/18..with resolution of episodes suspicious for seizure P: Await repeat phb level, to ensure clearance from system Continue Keppra bid for now; decrease to 250mg.. Limit other sedating medications where possible Other medical management per primary Will follow clinically Consultation Date/Type/Reason Admit Date/Time Sep 16, 2018 at 22:12 Type of Consult Neurology Requesting Provider: ANGELLA PERRIN Date/Time of Note DATE: 09/24/18 TIME: 13:26 24 HR Interval Summary Free Text/Dictation Continues icu care Exam Vital Signs Vitals Vital Signs Date Temp Pulse Resp B/P (MAP) Pulse Ox O2 O2 Flow FiO2 Time Delivery Rate 09/24/18 71 12:00 09/24/18 97.3 14 93/68 (76) 100 Mechanical 12:00 Ventilator 09/24/18 30 11:00 Intake and Output 09/23/18 09/23/18 09/24/18 1515:00 23:00 07:00 IntakeIntake Total 812.504 ml 681.941 ml 718.238 ml OutputOutput Total 800 ml 700 ml 875 ml BalanceBalance 12.504 ml -18.059 ml -156.762 ml Exam PE: Gen Appearance: No Apparent Distress HEENT: Intubated Cardiovascular: Regular rate Abdomen: Soft Extremities: Dry NE: The patient was comatose. Cranial nerve examination was limited by mental status. Pupils were equal and reactive to light. There was no afferent pupillary defect. Funduscopic ex amination was limited. Face was grossly symmetric, w/ present corneal and cough reflexes. Tone was normal. Muscle bulk was normal. I did not see fasciculations. The patient withdrew to noxious stimulation x 4. Coordination and gait testing was limited by mental status. Arm and leg reflexes were within normal limits and symmetric. Hudson's sign was absent. Plantar responses were flexor. CA ZURITA Sep 24, 2018 13:31
[2018-09-24] MEDS: BALSAM PERU/CASTOR OIL 60 GM TUBE TOP SCH ×2 (15:00→20:45)
[2018-09-24] MEDS: LEVETIRACETAM IV 250 MG in DEXTROSE 5% 100 ML IVPB SCH (20:38)
[2018-09-25] VITALS (105 sets, daily range): BP systolic 85–117; BP diastolic 54–83; PULSE 63–79; RESP 12–23
[2018-09-25] MEDS: LANSOPRAZOLE 30 MG CAP PO SCH (06:17)
[2018-09-25] MEDS: DEXTROSE 5%-LR 1,000 ML IV SCH ×2 (06:17→09:00)
[2018-09-25] MEDS: CEFEPIME 1GM/50 ML (PMX) 50 ML IVPB SCH ×2 (08:06→20:37)
[2018-09-25] MEDS: COLLAGENASE 5 GM (UD JAR) TOP SCH (08:06)
[2018-09-25] MEDS: BALSAM PERU/CASTOR OIL 60 GM TUBE TOP SCH ×2 (08:06→20:38)
[2018-09-25] MEDS: HEPARIN 5,000 UNIT/1 ML VIAL SC SCH ×2 (08:11→20:39)
[2018-09-25] MEDS: PROPOFOL 100 ML IV SCH ×2 (09:00→21:00)
[2018-09-25] MEDS: LEVETIRACETAM IV 250 MG in DEXTROSE 5% 100 ML IVPB SCH ×2 (09:13→21:19)
--- NOTE | 2018-09-25 10:28 | CONS ---
Consult Date/Type/Reason Admit Date/Time Sep 16, 2018 at 22:12 Initial Consult Date 09/18/18 Type of Consult Pulmonary Requesting Provider: ANGELLA PERRIN Date/Time of Note DATE: 09/25/18 TIME: 10:26 Subjective Remains lethargic on mechanical ventilation. Occasionally opening eyes but not following commands. Grimaces to painful stimuli. Objective Vital Signs Date Temp Pulse Resp B/P (MAP) Pulse Ox O2 O2 Flow FiO2 Time Delivery Rate 09/25/18 69 16 107/73 100 Mechanical 10:00 (84) Ventilator 09/25/18 30 08:00 09/25/18 98.5 08:00 Intake and Output 09/24/18 09/24/18 09/25/18 1515:00 23:00 07:00 IntakeIntake Total 737.35 ml 768.9 ml 632.6 ml OutputOutput Total 900 ml 540 ml 295 ml BalanceBalance -162.65 ml 228.9 ml 337.6 ml Exam GENERAL: Chronically ill-appearing lady on mechanical ventilation VITAL SIGNS: per chart NECK: Supple. No JVD or lymphadenopathy. CARDIAC EXAM: S1, S2. No added sounds or murmurs. CHEST: clear bilaterally, No added sounds, rales or wheezes ABDOMEN: Soft, nontender. No guarding or rebound. EXTREMITIES: No cyanosis, clubbing or edema. NEUROLOGIC: Generalized weakness. Unable to assess Vent Setting Ventilator Support Mode: AC Fraction of Inspired Oxygen pe: 30 Positive End Expiratory Pressu: 5.0 Results/Medications Result Diagram: 09/25/18 0330 09/25/18 0330 Results 24 hrs Laboratory Tests Test 09/25/18 03:20 09/25/18 03:30 Ammonia 17 White Blood Count 12.0 H Red Blood Count 2.77 L Hemoglobin 8.7 L Hematocrit 25.8 L Mean Corpuscular Volume 93.1 Mean Corpuscular Hemoglobin 31.4 Mean Corpuscular Hemoglobin Concent 33.7 Red Cell Distribution Width 12.8 Platelet Count 170 # Mean Platelet Volume 10.6 H Immature Granulocytes % 0.800 H Neutrophils % 73.1 Lymphocytes % 11.5 L Monocytes % 10.7 Eosinophils % 3.6 Basophils % 0.3 Nucleated Red Blood Cells % 0.0 Immature Granulocytes # 0.090 H Neutrophils # 8.8 H Lymphocytes # 1.4 Monocytes # 1.3 H Eosinophils # 0.4 Basophils # 0.0 Nucleated Red Blood Cells # 0.0 Sodium Level 132 L Potassium Level 3.7 Chloride Level 98 Carbon Dioxide Level 29 Anion Gap 5 Blood Urea Nitrogen 13 Creatinine 0.40 L Est Glomerular Filtrat Rate mL/min > 60 Glucose Level 139 Calcium Level 8.1 L Magnesium Level 1.8 Total Bilirubin 0.0 L Direct Bilirubin 0.00 Indirect Bilirubin 0.0 Aspartate Amino Transf (AST/SGOT) 23 Alanine Aminotransferase (ALT/SGPT) 22 Alkaline Phosphatase 28 L Total Protein 3.9 L Albumin 1.8 L Medications Current Medications IV Flush (NS 3 ml) 3 ml PER PROTOCOL IV ; Start 09/17/18 at 03:30 Ondansetron HCl (Zofran Inj) 4 mg Q6H PRN IV NAUSEA/VOMITING; Start 09/17/18 at 03:30 Acetaminophen (Tylenol Tab) 650 mg Q6H PRN PO .PAIN 1-3 OR TEMP; Start 09/17/18 at 03:30 Docusate Sodium (Colace) 100 mg Q12H PRN PO .CONSTIPATION; Start 09/17/18 at 03:30 Magnesium Hydroxide (Milk Of Mag) 30 ml DAILY PRN PO .CONSTIPATION; Start 09/17/18 at 03:30 Heparin Sodium (Porcine) (Heparin (5000 Units/1ml)) 5,000 unit Q12 SC Last administered on 09/25/18at 08:11; Admin Dose 5,000 UNIT; Start 09/17/18 at 09:00 Albuterol/ Ipratropium (Duoneb) 3 ml Q4H RESP THERAPY PRN HHN SHORTNESS OF BREATH; Start 09/17/18 at 03:30 Hydralazine HCl (Apresoline) 10 mg Q6H PRN IV ELEVATED BLOOD PRESSURE; Start 09/17/18 at 03:30 Nitroglycerin (Nitroglycerin (Sl Tab) 0.4 Mg) 1 tab Q5M PRN SL ANGINA; Start 09/17/18 at 03:30 Lorazepam (Ativan) 1 mg Q2H PRN IV SEIZURES Last administered on 09/17/18at 03:57; Admin Dose 1 MG; Start 09/17/18 at 03:30 Miscellaneous Information (Pending [facility] Order For Wound Care) This patient goel... PRN PRN XX WOUND CARE; Start 09/17/18 at 05:00 Propofol 100 ml @ 1.227 mls/ hr Q12H IV ; Start 09/18/18 at 21:00 Norepinephrine 250 ml @ 1.875 mls/ hr TITRATE IV Last administered on 09/23/18at 16:40; Admin Dose 6.563 MLS/HR; Start 09/18/18 at 23:00 Collagenase (Santyl) 1 applic DAILY TOP Last administered on 09/25/18at 08:06; Admin Dose 1 APPLIC; Start 09/19/18 at 11:30 IV Flush (NS 10 ml) 10 ml PRN PRN IV IV PROTOCOL; Start 09/19/18 at 15:00 Cefepime HCl 50 ml @ 100 mls/hr Q12 IVPB Last administered on 09/25/18at 08:06; Admin Dose 100 MLS/HR; Start 09/21/18 at 13:00 Dextrose/Lactated Ringer's 1,000 ml @ 20 mls/hr Q24H IV Last administered on 09/25/18 06:17; Admin Dose 20 MLS/HR; Start 09/23/18 at 09:00 Levetiracetam 250 mg/Dextrose 102.5 ml @ 430 mls/hr Q12 IVPB Last administered on 09/25/18 09:13; Admin Dose 430 MLS/HR; Start 09/24/18 at 21:00 Lansoprazole (Prevacid) 30 mg DAILY@06 PO Last administered on 09/25/18 06:17; Admin Dose 30 MG; Start 09/25/18 at 06:00 Assessment/Plan Hospital Course (Demo Recall) IMP: 1. Encephalopathy--post-ictal state s/p status epilepticus. Possibly secondary to elevated phenobarbital level. 2. Vent Dependence 09/15 #1 3. Metabolic acidosis likely secondary to hypoperfusion. Now improved 4. Status post septic Shock 5. s/p lactic acidosis RECS: 1. Titrate levophed to MAP > 65 mm Hg 2. Intravenous antibiotics; de-escalate pending cultures 3. Continue antiepileptics per Neuro 4. Minimize sedation; continue to follow neuro exam 5. DVT and GI prophylaxis Long discussion with family at bedside today. Discussed goals of care. They asked appropriate questions and we discussed either extubation if she has significant improvement in her neurological status versus tracheostomy versus extubation and comfort measures. Currently family leaning towards extubation with comfort measures but given her poor quality of life prior to this admissi on. They will discuss goals of care amongst themselves and we will plan to meet at the end of this week. power lineworker also present will give family long-term placement options if they so desire. JODI MOY MD, [facility] Sep 25, 2018 10:28
--- NOTE | 2018-09-25 11:33 | PN ---
Date/Time of Note Date/Time of Note DATE: 09/25/18 TIME: 11:26 Assessment/Plan VTE Prophylaxis Risk score (from Nsg)>0 risk: 5 SCD applied (from Nsg): Yes Pharmacological prophylaxis: heparin Lines/Catheters IV Catheter Type (from Nrsg): PICC Line Central line still needed: Yes Urinary Cath still in place: Yes Reason Cath still needed: other (indicate) Assessment/Plan Hospital Course S: remains intubated, minimally Responsive and on minimal pressor support, family meeting done with pulm today O: Constitutional: postures to painful stimuli, frail, chronically ill looking Head: atraumatic, normocephalic, NC, LISHA sluggish Neck: non-tender, supple Respiratory: coarse, diminished Cardiovascular: regular rate and rhythm Gastrointestinal: S/ NT / ND / +BS Extremities: no edema, good radial pulses, frail, trace purvi le edema assessment and Plan: 58 yo F with a slow early onset dementia, cause unknown who is non verbal at baseline who was brought in for abnormal jerking behavior concerning for seizures # Seizure requiring intubation for airway protection -continue vent support for now -s/p aggressive seizure control for status epilepticus, has been getting serial EEGs -EEG from 09/23 showed : The slowing of the background indicates severe, diffuse cortical dysfunction of nonspecific etiology. -Neurology managing, patient on Keppra BID only for now -Avoid / Limit sedation if not ordered by neuro #Sepsis shock with aspiration PNA and UTI - urine growing Streptococcus - Respiratory cultures growing Pseudomonas which is pansensitive - ID managing antibiotics # Chronic dementia/encephalopathy, -nonverbal and bedbound at baseline. Of gradual onset, no organic cause found despite extensive workup per -cared for at home by and children 24hours # Remote History of West Nile virus infection #Chronic dyslipidemia #Chronic hypertension: currently hypotensive #Chronic psychiatric d/o on risperidone with benztropine for tardive dyskinesia ? -dose of benztropine recently reduced all pysch meds on hold for now Plan : -At this time continue ICU monitoring and management, -Spoke with neurology yesterday, plan is to give time for phenobarbital to wear off, neuro is expectant of improvement back to baseline, continue to defer to their recommendations -Continue tube feeds -Continue serial labs and close monitoring -Further interventions will depend on clinical course -POC discussed with nursing staff and consultants and family at bedside Prophylaxis : Heparin / Lansoprazole Care time 40mins Result Diagram: 09/25/18 0330 09/25/18 0330 Results 24hrs Laboratory Tests Test 09/25/18 03:20 09/25/18 03:30 Ammonia 17 White Blood Count 12.0 H Red Blood Count 2.77 L Hemoglobin 8.7 L Hematocrit 25.8 L Mean Corpuscular Volume 93.1 Mean Corpuscular Hemoglobin 31.4 Mean Corpuscular Hemoglobin Concent 33.7 Red Cell Distribution Width 12.8 Platelet Count 170 # Mean Platelet Volume 10.6 H Immature Granulocytes % 0.800 H Neutrophils % 73.1 Lymphocytes % 11.5 L Monocytes % 10.7 Eosinophils % 3.6 Basophils % 0.3 Nucleated Red Blood Cells % 0.0 Immature Granulocytes # 0.090 H Neutrophils # 8.8 H Lymphocytes # 1.4 Monocytes # 1.3 H Eosinophils # 0.4 Basophils # 0.0 Nucleated Red Blood Cells # 0.0 Sodium Level 132 L Potassium Level 3.7 Chloride Level 98 Carbon Dioxide Level 29 Anion Gap 5 Blood Urea Nitrogen 13 Creatinine 0.40 L Est Glomerular Filtrat Rate mL/min > 60 Glucose Level 139 Calcium Level 8.1 L Magnesium Level 1.8 Total Bilirubin 0.0 L Direct Bilirubin 0.00 Indirect Bilirubin 0.0 Aspartate Amino Transf (AST/SGOT) 23 Alanine Aminotransferase (ALT/SGPT) 22 Alkaline Phosphatase 28 L Total Protein 3.9 L Albumin 1.8 L Exam/Review of Systems Exam Vitals Vital Signs Date Temp Pulse Resp B/P (MAP) Pulse Ox O2 O2 Flow FiO2 Time Delivery Rate 09/25/18 69 16 107/73 100 Mechanical 10:00 (84) Ventilator 09/25/18 30 08:00 09/25/18 98.5 08:00 Intake and Output 09/24/18 09/24/18 09/25/18 1515:00 23:00 07:00 IntakeIntake Total 737.35 ml 768.9 ml 653.5 ml OutputOutput Total 900 ml 540 ml 295 ml BalanceBalance -162.65 ml 228.9 ml 358.5 ml Results Results 24hrs Laboratory Tests Test 09/25/18 03:20 09/25/18 03:30 Ammonia 17 White Blood Count 12.0 H Red Blood Count 2.77 L Hemoglobin 8.7 L Hematocrit 25.8 L Mean Corpuscular Volume 93.1 Mean Corpuscular Hemoglobin 31.4 Mean Corpuscular Hemoglobin Concent 33.7 Red Cell Distribution Width 12.8 Platelet Count 170 # Mean Platelet Volume 10.6 H Immature Granulocytes % 0.800 H Neutrophils % 73.1 Lymphocytes % 11.5 L Monocytes % 10.7 Eosinophils % 3.6 Basophils % 0.3 Nucleated Red Blood Cells % 0.0 Immature Granulocytes # 0.090 H Neutrophils # 8.8 H Lymphocytes # 1.4 Monocytes # 1.3 H Eosinophils # 0.4 Basophils # 0.0 Nucleated Red Blood Cells # 0.0 Sodium Level 132 L Potassium Level 3.7 Chloride Level 98 Carbon Dioxide Level 29 Anion Gap 5 Blood Urea Nitrogen 13 Creatinine 0.40 L Est Glomerular Filtrat Rate mL/min > 60 Glucose Level 139 Calcium Level 8.1 L Magnesium Level 1.8 Total Bilirubin 0.0 L Direct Bilirubin 0.00 Indirect Bilirubin 0.0 Aspartate Amino Transf (AST/SGOT) 23 Alanine Aminotransferase (ALT/SGPT) 22 Alkaline Phosphatase 28 L Total Protein 3.9 L Albumin 1.8 L Medications Medication Current Medications IV Flush (NS 3 ml) 3 ml PER PROTOCOL IV ; Start 09/17/18 at 03:30 Ondansetron HCl (Zofran Inj) 4 mg Q6H PRN IV NAUSEA/VOMITING; Start 09/17/18 at 03:30 Acetaminophen (Tylenol Tab) 650 mg Q6H PRN PO .PAIN 1-3 OR TEMP; Start 09/17/18 at 03:30 Docusate Sodium (Colace) 100 mg Q12H PRN PO .CONSTIPATION; Start 09/17/18 at 03:30 Magnesium Hydroxide (Milk Of Mag) 30 ml DAILY PRN PO .CONSTIPATION; Start 09/17/18 at 03:30 Heparin Sodium (Porcine) (Heparin (5000 Units/1ml)) 5,000 unit Q12 SC Last administered on 09/25/18at 08:11; Admin Dose 5,000 UNIT; Start 09/17/18 at 09:00 Albuterol/ Ipratropium (Duoneb) 3 ml Q4H RESP THERAPY PRN HHN SHORTNESS OF BREATH; Start 09/17/18 at 03:30 Hydralazine HCl (Apresoline) 10 mg Q6H PRN IV ELEVATED BLOOD PRESSURE; Start 09/17/18 at 03:30 Nitroglycerin (Nitroglycerin (Sl Tab) 0.4 Mg) 1 tab Q5M PRN SL ANGINA; Start 09/17/18 at 03:30 Lorazepam (Ativan) 1 mg Q2H PRN IV SEIZURES Last administered on 09/17/18 03:57; Admin Dose 1 MG; Start 09/17/18 at 03:30 Miscellaneous Information (Pending Santyl Order For Wound Care) This patient goel... PRN PRN XX WOUND CARE; Start 09/17/18 at 05:00 Propofol 100 ml @ 1.227 mls/ hr Q12H IV ; Start 09/18/18 at 21:00 Norepinephrine 250 ml @ 1.875 mls/ hr TITRATE IV Last administered on 09/23/18 16:40; Admin Dose 6.563 MLS/HR; Start 09/18/18 at 23:00 Collagenase (Santyl) 1 applic DAILY TOP Last administered on 09/25/18 08:06; Admin Dose 1 APPLIC; Start 09/19/18 at 11:30 IV Flush (NS 10 ml) 10 ml PRN PRN IV IV PROTOCOL; Start 09/19/18 at 15:00 Cefepime HCl 50 ml @ 100 mls/hr Q12 IVPB Last administered on 09/25/18 08:06; Admin Dose 100 MLS/HR; Start 09/21/18 at 13:00 Dextrose/Lactated Ringer's 1,000 ml @ 20 mls/hr Q24H IV Last administered on 09/25/18 06:17; Admin Dose 20 MLS/HR; Start 09/23/18 at 09:00 Levetiracetam 250 mg/Dextrose 102.5 ml @ 430 mls/hr Q12 IVPB Last administered on 09/25/18 09:13; Admin Dose 430 MLS/HR; Start 09/24/18 at 21:00 Lansoprazole (Prevacid) 30 mg DAILY@06 PO Last administered on 09/25/18 06:17; Admin Dose 30 MG; Start 09/25/18 at 06:00 DYLAN RAMOS Sep 25, 2018 11:33
--- NOTE | 2018-09-25 12:43 | CONS ---
Assessment/Plan Assessment/Plan Hospital Course (Demo Recall) No acute changes overnight patient remains on low-dose of Levophed had been afebrile and more responsive per report WBC today 12 platelets 1 7 neutrophils 73.1 BUN 13 creatinine 0.40 Antimicrobials: Cefepime Microbiology: Urine culture grew Streptococcus, sputum culture growing pseudomonas aeruginosa Indwelling: Endotracheal tube orogastric tube Prince catheter left upper extremity PICC line Physical examination: Well-developed chronically ill-appearing middle-aged woman who is intubated in no distress. Head atraumatic normocephalic. Sclera nonicteric. Neck is supple. Chest rise symmetrical, breath sounds diminished bases. Heart: S1-S2. Abdomen soft bowel sounds present, hypoactive. Extremities cyanotic with trace edema Assessment: 1. Sepsis 2. Gram-positive cocci bacteremia cw contaminant 3. Respiratory failure 4. 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 Acute on chronic encephalopathy 6. Urinary tract infection Plan: Remains unchanged, continue present care, antibiotics, neurology/pulmonary recommendations Consultation Date/Type/Reason Admit Date/Time Sep 16, 2018 at 22:12 Initial Consult Date 09/18/18 Type of Consult id Requesting Provider: ANGELLA PERRIN Date/Time of Note DATE: 09/25/18 TIME: 12:41 Exam/Review of Systems Exam Vitals Vital Signs Date Temp Pulse Resp B/P (MAP) Pulse Ox O2 O2 Flow FiO2 Time Delivery Rate 09/25/18 71 15 100 30 11:30 09/25/18 107/73 Mechanical 10:00 (84) Ventilator 09/25/18 98.5 08:00 Intake and Output 09/24/18 09/24/18 09/25/18 1414:59 22:59 06:59 IntakeIntake Total 736.4 ml 770.85 ml 694.4 ml OutputOutput Total 900 ml 600 ml 335 ml BalanceBalance -163.6 ml 170.85 ml 359.4 ml Results Result Diagram: 09/25/18 0330 09/25/18 0330 Results 24hrs Laboratory Tests Test 09/25/18 03:20 09/25/18 03:30 Ammonia 17 White Blood Count 12.0 H Red Blood Count 2.77 L Hemoglobin 8.7 L Hematocrit 25.8 L Mean Corpuscular Volume 93.1 Mean Corpuscular Hemoglobin 31.4 Mean Corpuscular Hemoglobin Concent 33.7 Red Cell Distribution Width 12.8 Platelet Count 170 # Mean Platelet Volume 10.6 H Immature Granulocytes % 0.800 H Neutrophils % 73.1 Lymphocytes % 11.5 L Monocytes % 10.7 Eosinophils % 3.6 Basophils % 0.3 Nucleated Red Blood Cells % 0.0 Immature Granulocytes # 0.090 H Neutrophils # 8.8 H Lymphocytes # 1.4 Monocytes # 1.3 H Eosinophils # 0.4 Basophils # 0.0 Nucleated Red Blood Cells # 0.0 Sodium Level 132 L Potassium Level 3.7 Chloride Level 98 Carbon Dioxide Level 29 Anion Gap 5 Blood Urea Nitrogen 13 Creatinine 0.40 L Est Glomerular Filtrat Rate mL/min > 60 Glucose Level 139 Calcium Level 8.1 L Magnesium Level 1.8 Total Bilirubin 0.0 L Direct Bilirubin 0.00 Indirect Bilirubin 0.0 Aspartate Amino Transf (AST/SGOT) 23 Alanine Aminotransferase (ALT/SGPT) 22 Alkaline Phosphatase 28 L Total Protein 3.9 L Albumin 1.8 L Medications Medication Current Medications IV Flush (NS 3 ml) 3 ml PER PROTOCOL IV ; Start 09/17/18 at 03:30 Ondansetron HCl (Zofran Inj) 4 mg Q6H PRN IV NAUSEA/VOMITING; Start 09/17/18 at 03:30 Acetaminophen (Tylenol Tab) 650 mg Q6H PRN PO .PAIN 1-3 OR TEMP; Start 09/17/18 at 03:30 Docusate Sodium (Colace) 100 mg Q12H PRN PO .CONSTIPATION; Start 09/17/18 at 03:30 Magnesium Hydroxide (Milk Of Mag) 30 ml DAILY PRN PO .CONSTIPATION; Start 09/17/18 at 03:30 Heparin Sodium (Porcine) (Heparin (5000 Units/1ml)) 5,000 unit Q12 SC Last administered on 09/25/18at 08:11; Admin Dose 5,000 UNIT; Start 09/17/18 at 09:00 Albuterol/ Ipratropium (Duoneb) 3 ml Q4H RESP THERAPY PRN HHN SHORTNESS OF BREATH; Start 09/17/18 at 03:30 Hydralazine HCl (Apresoline) 10 mg Q6H PRN IV ELEVATED BLOOD PRESSURE; Start 09/17/18 at 03:30 Nitroglycerin (Nitroglycerin (Sl Tab) 0.4 Mg) 1 tab Q5M PRN SL ANGINA; Start 09/17/18 at 03:30 Lorazepam (Ativan) 1 mg Q2H PRN IV SEIZURES Last administered on 09/17/18 03:57; Admin Dose 1 MG; Start 09/17/18 at 03:30 Miscellaneous Information (Pending Santyl Order For Wound Care) This patient goel ... PRN PRN XX WOUND CARE; Start 09/17/18 at 05:00 Propofol 100 ml @ 1.227 mls/ hr Q12H IV ; Start 09/18/18 at 21:00 Norepinephrine 250 ml @ 1.875 mls/ hr TITRATE IV Last administered on 09/23/18 16:40; Admin Dose 6.563 MLS/HR; Start 09/18/18 at 23:00 Collagenase (Santyl) 1 applic DAILY TOP Last administered on 09/25/18 08:06; Admin Dose 1 APPLIC; Start 09/19/18 at 11:30 IV Flush (NS 10 ml) 10 ml PRN PRN IV IV PROTOCOL; Start 09/19/18 at 15:00 Cefepime HCl 50 ml @ 100 mls/hr Q12 IVPB Last administered on 09/25/18 08:06; Admin Dose 100 MLS/HR; Start 09/21/18 at 13:00 Dextrose/Lactated Ringer's 1,000 ml @ 20 mls/hr Q24H IV Last administered on 09/25/18 06:17; Admin Dose 20 MLS/HR; Start 09/23/18 at 09:00 Levetiracetam 250 mg/Dextrose 102.5 ml @ 430 mls/hr Q12 IVPB Last administered on 09/25/18 09:13; Admin Dose 430 MLS/HR; Start 09/24/18 at 21:00 Lansoprazole (Prevacid) 30 mg DAILY@06 PO Last administered on 09/25/18 06:17; Admin Dose 30 MG; Start 09/25/18 at 06:00 ZHANE TERAN NP Sep 25, 2018 12:43
--- NOTE | 2018-09-25 15:37 | CONS ---
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 She was additionally reported to have a seizure... for which neurology is co nsulted. Most clinically consistent with new onset epilepsy. Initial EEG was notable for GPEDs and an electrographic seizure originating in the R temporal region.. s/p Dilantin load, with ongoing episodic staring spells (presumed seizures) noted clinically.. s/p Phenobarbital load on 09/18..with resolution of episodes suspicious for seizure P: Repeat phb level, to ensure clearance from system Continue Keppra 250 bid for now Limit other sedating medications where possible Other medical management per primary Will follow clinically Consultation Date/Type/Reason Admit Date/Time Sep 16, 2018 at 22:12 Type of Consult Neurology Reason for Consultation new onset seizures Requesting Provider: ANGELLA PERRIN Date/Time of Note DATE: 09/25/18 TIME: 15:37 24 HR Interval Summary Free Text/Dictation Continues critical care. No acute events reported at this time. Subjective hx not possible: pt non-verbal, pt critical status Exam Vital Signs Vitals Vital Signs Date Temp Pulse Resp B/P (MAP) Pulse Ox O2 O2 Flow FiO2 Time Delivery Rate 09/25/18 70 14 112/78 100 14:30 (89) 09/25/18 Mechanical 14:00 Ventilator 09/25/18 97.5 12:00 09/25/18 30 11:30 Intake and Output 09/24/18 09/24/18 09/25/18 1515:00 23:00 07:00 IntakeIntake Total 737.35 ml 768.9 ml 693.5 ml OutputOutput Total 900 ml 540 ml 345 ml BalanceBalance -162.65 ml 228.9 ml 348.5 ml Exam PE: Gen Appearance: No Apparent Distress HEENT: Intubated Cardiovascular: Regular rate Abdomen: Soft Extremities: Dry NE: The patient was obtunded; opened eyes to noxious stimuli. Did not track or follow commands. Cranial nerve examination was limited by mental status. Pupils were equal and reactive to light. There was no afferent pupillary defect. Funduscopic exami nation was limited. Face was grossly symmetric, w/ present corneal and cough reflexes. Tone was normal. Muscle bulk was normal. I did not see fasciculations. The patient withdrew to noxious stimulation x 4. Coordination and gait testing was limited by mental status. Arm and leg reflexes were within normal limits and symmetric. Hudson's sign was absent. Plantar responses were flexor. SWEETIE NATARAJAN NP Sep 25, 2018 15:37
[2018-09-26] VITALS (64 sets, daily range): BP systolic 86–112; BP diastolic 60–77; PULSE 66–155; RESP 12–20
[2018-09-26] MEDS: LANSOPRAZOLE 30 MG CAP PO SCH (05:56)
--- NOTE | 2018-09-26 07:03 | PN ---
Date/Time of Note Date/Time of Note DATE: 09/26/18 TIME: 07:00 Assessment/Plan VTE Prophylaxis Risk score (from Nsg)>0 risk: 5 SCD applied (from Nsg): Yes Pharmacological prophylaxis: heparin Lines/Catheters IV Catheter Type (from Nrsg): PICC Line Central line still needed: Yes Urinary Cath still in place: Yes Reason Cath still needed: other (indicate) Assessment/Plan Hospital Course S: remains intubated, minimally Responsive and on minimal pressor support, O: Constitutional: postures to painful stimuli, frail, chronically ill looking Head: atraumatic, normocephalic, NC, LISHA sluggish Neck: non-tender, supple Respiratory: coarse, diminished Cardiovascular: regular rate and rhythm Gastrointestinal: S/ NT / ND / +BS Extremities: no edema, good radial pulses, frail, trace purvi le edema assessment and Plan: 58 yo F with a slow early onset dementia, cause unknown who is non verbal at baseline who was brought in for abnormal jerking behavior concerning for seizures # Seizure requiring intubation for airway protection -continue vent support for now -s/p aggressive seizure control for status epilepticus, has been getting serial EEGs -EEG from 09/23 showed : The slowing of the background indicates severe, diffuse cortical dysfunction of nonspecific etiology. -Neurology managing, patient on Keppra BID only for now -Avoid / Limit sedation if not ordered by neuro #Sepsis shock with aspiration PNA and UTI - urine growing Streptococcus - Respiratory cultures growing Pseudomonas which is pansensitive - ID managing antibiotics # Chronic dementia/encephalopathy, -nonverbal and bedbound at baseline. Of gradual onset, no organic cause found despite extensive workup per -cared for at home by and children 24hours # + HSV 1 IgG -will order IgM to assess acuity and relevance -empiric antiviral ? # Remote History of West Nile virus infection #Chronic dyslipidemia #Chronic hypertension: currently hypotensive #Chronic psychiatric d/o on risperidone with benztropine for tardive dyskinesia ? -dose of benztropine recently reduced all pysch meds on hold for now Plan : -At this time continue ICU monitoring and management, -Spoke with neurology yesterday, plan is to give time for phenobarbital to wear off, neuro is expectant of improvement back to baseline, continue to defer to their recommendations, f/u phenobarbital levels -Continue tube feeds -Continue serial labs and close monitoring -Further interventions will depend on clinical course -POC discussed with nursing staff and consultants and family at bedside Prophylaxis : Heparin / Lansoprazole Care time 40mins Result Diagram: 09/25/18 0330 09/26/18 0447 Results 24hrs Laboratory Tests Test 09/26/18 04:47 White Blood Count Pending Red Blood Count Pending Hemoglobin Pending Hematocrit Pending Mean Corpuscular Volume Pending Mean Corpuscular Hemoglobin Pending Mean Corpuscular Hemoglobin Concent Pending Red Cell Distribution Width Pending Platelet Count Pending Mean Platelet Volume Pending Sodium Level 130 L Potassium Level 4.3 Chloride Level 96 L Carbon Dioxide Level 29 Anion Gap 5 Blood Urea Nitrogen 11 Creatinine 0.34 L Est Glomerular Filtrat Rate mL/min > 60 Glucose Level 110 Calcium Level 8.0 L Exam/Review of Systems Exam Vitals Vital Signs Date Temp Pulse Resp B/P (MAP) Pulse Ox O2 O2 Flow FiO2 Time Delivery Rate 09/26/18 67 14 100 30 06:20 09/26/18 96/70 (79) Mechanical 05:30 Ventilator 09/26/18 97.9 00:00 Intake and Output 09/25/18 09/25/18 09/26/18 1515:00 23:00 07:00 IntakeIntake Total 717.9 ml 732.9 ml 650 ml OutputOutput Total 390 ml 360 ml 350 ml BalanceBalance 327.9 ml 372.9 ml 300 ml Results Results 24hrs Laboratory Tests Test 09/26/18 04:47 White Blood Count Pending Red Blood Count Pending Hemoglobin Pending Hematocrit Pending Mean Corpuscular Volume Pending Mean Corpuscular Hemoglobin Pending Mean Corpuscular Hemoglobin Concent Pending Red Cell Distribution Width Pending Platelet Count Pending Mean Platelet Volume Pending Sodium Level 130 L Potassium Level 4.3 Chloride Level 96 L Carbon Dioxide Level 29 Anion Gap 5 Blood Urea Nitrogen 11 Creatinine 0.34 L Est Glomerular Filtrat Rate mL/min > 60 Glucose Level 110 Calcium Level 8.0 L Medications Medication Current Medications IV Flush (NS 3 ml) 3 ml PER PROTOCOL IV ; Start 09/17/18 at 03:30 Ondansetron HCl (Zofran Inj) 4 mg Q6H PRN IV NAUSEA/VOMITING; Start 09/17/18 at 03:30 Acetaminophen (Tylenol Tab) 650 mg Q6H PRN PO .PAIN 1-3 OR TEMP; Start 09/17/18 at 03:30 Docusate Sodium (Colace) 100 mg Q12H PRN PO .CONSTIPATION; Start 09/17/18 at 03:30 Magnesium Hydroxide (Milk Of Mag) 30 ml DAILY PRN PO .CONSTIPATION; Start 09/17/18 at 03:30 Heparin Sodium (Porcine) (Heparin (5000 Units/1ml)) 5,000 unit Q12 SC Last adm inistered on 09/25/18at 20:39; Admin Dose 5,000 UNIT; Start 09/17/18 at 09:00 Albuterol/ Ipratropium (Duoneb) 3 ml Q4H RESP THERAPY PRN HHN SHORTNESS OF BREATH; Start 09/17/18 at 03:30 Hydralazine HCl (Apresoline) 10 mg Q6H PRN IV ELEVATED BLOOD PRESSURE; Start 09/17/18 at 03:30 Nitroglycerin (Nitroglycerin (Sl Tab) 0.4 Mg) 1 tab Q5M PRN SL ANGINA; Start 09/17/18 at 03:30 Lorazepam (Ativan) 1 mg Q2H PRN IV SEIZURES Last administered on 09/17/18 03:57; Admin Dose 1 MG; Start 09/17/18 at 03:30 Miscellaneous Information (Pending Santyl Order For Wound Care) This patient goel... PRN PRN XX WOUND CARE; Start 09/17/18 at 05:00 Propofol 100 ml @ 1.227 mls/ hr Q12H IV ; Start 09/18/18 at 21:00 Norepinephrine 250 ml @ 1.875 mls/ hr TITRATE IV Last administered on 09/23/18at 16:40; Admin Dose 6.563 MLS/HR; Start 09/18/18 at 23:00 Collagenase (Santyl) 1 applic DAILY TOP Last administered on 09/25/18at 08:06; Admin Dose 1 APPLIC; Start 09/19/18 at 11:30 IV Flush (NS 10 ml) 10 ml PRN PRN IV IV PROTOCOL; Start 09/19/18 at 15:00 Cefepime HCl 50 ml @ 100 mls/hr Q12 IVPB Last administered on 09/25/18at 20:37; Admin Dose 100 MLS/HR; Start 09/21/18 at 13:00 Dextrose/Lactated Ringer's 1,000 ml @ 20 mls/hr Q24H IV Last administered on 09/25/18at 06:17; Admin Dose 20 MLS/HR; Start 09/23/18 at 09:00 Levetiracetam 250 mg/Dextrose 102.5 ml @ 430 mls/hr Q12 IVPB Last administered on 09/25/18at 21:19; Admin Dose 430 MLS/HR; Start 09/24/18 at 21:00 Lansoprazole (Prevacid) 30 mg DAILY@06 PO Last administered on 09/26/18at 05:56; Admin Dose 30 MG; Start 09/25/18 at 06:00 DYLAN RAMOS Sep 26, 2018 07:03
[2018-09-26] MEDS: CEFEPIME 1GM/50 ML (PMX) 50 ML IVPB SCH ×2 (08:36→20:59)
[2018-09-26] MEDS: COLLAGENASE 5 GM (UD JAR) TOP SCH (08:36)
[2018-09-26] MEDS: BALSAM PERU/CASTOR OIL 60 GM TUBE TOP SCH ×2 (08:37→21:03)
[2018-09-26] MEDS: HEPARIN 5,000 UNIT/1 ML VIAL SC SCH ×2 (08:45→21:00)
[2018-09-26] MEDS: PROPOFOL 100 ML IV SCH ×2 (09:00→21:00)
[2018-09-26] MEDS: LEVETIRACETAM IV 250 MG in DEXTROSE 5% 100 ML IVPB SCH ×2 (09:43→20:59)
[2018-09-26] MEDS ORDERED: FUROSEMIDE 20 MG INJ IV ONE (10:30)
[2018-09-26] MEDS ORDERED: NORepinephrine 8MG/250 ML (PMX 250 ML IV SCH (10:30)
--- NOTE | 2018-09-26 11:20 | CONS ---
Consult Date/Type/Reason Admit Date/Time Sep 16, 2018 at 22:12 Initial Consult Date 09/18/18 Type of Consult Pulmonary Requesting Provider: ANGELLA PERRIN Date/Time of Note DATE: 09/26/18 TIME: 11:17 Subjective Patient continues mechanical ventilation remains largely somnolent. Currently off vasopressors. Tube feeding as tolerated. Objective Vital Signs Date Temp Pulse Resp B/P (MAP) Pulse Ox O2 O2 Flow FiO2 Time Delivery Rate 09/26/18 73 14 101/60 100 09:30 (74) 09/26/18 Mechanical 09:00 Ventilator 09/26/18 30 08:00 09/26/18 98.7 07:00 Intake and Output 09/25/18 09/25/18 09/26/18 1515:00 23:00 07:00 IntakeIntake Total 717.9 ml 732.9 ml 690 ml OutputOutput Total 390 ml 360 ml 400 ml BalanceBalance 327.9 ml 372.9 ml 290 ml Exam GENERAL: Chronically ill-appearing lady on mechanical ventilation VITAL SIGNS: per chart NECK: Supple. No JVD or lymphadenopathy. CARDIAC EXAM: S1, S2. No added sounds or murmurs. CHEST: clear bilaterally, No added sounds, rales or wheezes ABDOMEN: Soft, nontender. No guarding or rebound. EXTREMITIES: No cyanosis, clubbing or edema. NEUROLOGIC: Generalized weakness. Unable to assess Vent Setting Ventilator Support Mode: AC Fraction of Inspired Oxygen pe: 30 Positive End Expiratory Pressu: 5.0 Results/Medications Result Diagram: 09/26/18 0447 09/26/18446 Results 24 hrs Laboratory Tests Test 09/26/18 04:47 09/26/18 07:00 White Blood Count 5.7 # Red Blood Count 2.76 L Hemoglobin 8.6 L Hematocrit 25.8 L Mean Corpuscular Volume 93.5 Mean Corpuscular Hemoglobin 31.2 Mean Corpuscular Hemoglobin Concent 33.3 Red Cell Distribution Width 12.9 Platelet Count 189 Mean Platelet Volume 11.3 H Immature Granulocytes % 1.200 H Neutrophils % Segmented Neutrophils % (Manual) 66 Band Neutrophils % (Manual) 7 H Lymphocytes % Lymphocytes % (Manual) 16 Reactive Lymphocytes % (Manual) 3 H Monocytes % Monocytes % (Manual) 5 Eosinophils % Eosinophils % (Manual) 3 Basophils % Nucleated Red Blood Cells % 0.4 H Immature Granulocytes # 0.070 H Neutrophils # Neutrophils # (Manual) 3.8 Band Neutrophils # 0.3 Lymphocytes (Manual) 0.9 Lymphocytes # Reactive Lymphocytes # 0.1 H Monocytes # Monocytes # (Manual) 0.2 L Eosinophils # Basophils # Nucleated Red Blood Cells # Platelet Estimate NORMAL Polychromasia 1+ Anisocytosis 1+ Sodium Level 130 L Potassium Level 4.3 Chloride Level 96 L Carbon Dioxide Level 29 Anion Gap 5 Blood Urea Nitrogen 11 Creatinine 0.34 L Est Glomerular Filtrat Rate mL/min > 60 Glucose Level 110 Calcium Level 8.0 L Blood Gas Specimen Source Blood arterial Arterial Blood Date Drawn 09/26/2018 7:28:03 AM Arterial Blood pH (Temp corrected) 7.517 H Arterial Blood pCO2 (Temp correct) 35.6 Arterial Blood pO2 (Temp corrected) 88.6 Arterial Blood HCO3 28.2 H Arterial Blood Base Excess 5.1 H Arterial Blood Oxygen Saturation 96.6 Tino Test ACCEPTAB Arterial Blood Gas Puncture Site Right Radial Arterial Blood Carboxyhemoglobin 0.3 Arterial Blood Methemoglobin 0.2 Blood Gas A-a O2 Differential 83.5 H Oxyhemoglobin Percent 96.1 Blood Gas Temperature 37.0 Blood Gas Respiration Rate 14.0 Blood Gas Actual Respiration Rate 14 Blood Gas Modality VENT - AC FiO2 30.0 Blood Gas Tidal Volume 400.0 Blood Gas Low PEEP Setting 5.0 Blood Gas Notified Whom TM Blood Gas Notified Time 09/26/2018 7:59:36 AM Medications Current Medications IV Flush (NS 3 ml) 3 ml PER PROTOCOL IV ; Start 09/17/18 at 03:30 Ondansetron HCl (Zofran Inj) 4 mg Q6H PRN IV NAUSEA/VOMITING; Start 09/17/18 at 03:30 Acetaminophen (Tylenol Tab) 650 mg Q6H PRN PO .PAIN 1-3 OR TEMP; Start 09/17/18 at 03:30 Docusate Sodium (Colace) 100 mg Q12H PRN PO .CONSTIPATION; Start 09/17/18 at 03:30 Magnesium Hydroxide (Milk Of Mag) 30 ml DAILY PRN PO .CONSTIPATION; Start 09/17/18 at 03:30 Heparin Sodium (Porcine) (Heparin (5000 Units/1ml)) 5,000 unit Q12 SC Last adm inistered on 09/26/18at 08:45; Admin Dose 5,000 UNIT; Start 09/17/18 at 09:00 Albuterol/ Ipratropium (Duoneb) 3 ml Q4H RESP THERAPY PRN HHN SHORTNESS OF BREATH; Start 09/17/18 at 03:30 Hydralazine HCl (Apresoline) 10 mg Q6H PRN IV ELEVATED BLOOD PRESSURE; Start 09/17/18 at 03:30 Nitroglycerin (Nitroglycerin (Sl Tab) 0.4 Mg) 1 tab Q5M PRN SL ANGINA; Start 09/17/18 at 03:30 Lorazepam (Ativan) 1 mg Q2H PRN IV SEIZURES Last administered on 09/17/18at 03:57; Admin Dose 1 MG; Start 09/17/18 at 03:30 Miscellaneous Information (Pending Santyl Order For Wound Care) This patient goel... PRN PRN XX WOUND CARE; Start 09/17/18 at 05:00 Propofol 100 ml @ 1.227 mls/ hr Q12H IV ; Start 09/18/18 at 21:00 Collagenase (Santyl) 1 applic DAILY TOP Last administered on 09/26/18at 08:36; Admin Dose 1 APPLIC; Start 09/19/18 at 11:30 IV Flush (NS 10 ml) 10 ml PRN PRN IV IV PROTOCOL; Start 09/19/18 at 15:00 Cefepime HCl 50 ml @ 100 mls/hr Q12 IVPB Last administered on 09/26/18at 08:36; Admin Dose 100 MLS/HR; Start 09/21/18 at 13:00 Levetiracetam 250 mg/Dextrose 102.5 ml @ 430 mls/hr Q12 IVPB Last administered on 09/26/18at 09:43; Admin Dose 430 MLS/HR; Start 09/24/18 at 21:00 Lansoprazole (Prevacid) 30 mg DAILY@06 PO Last administered on 09/26/18at 05:56; Admin Dose 30 MG; Start 09/25/18 at 06:00 Norepinephrine 250 ml @ 1.875 mls/ hr TITRATE IV ; Start 09/26/18 at 10:30 Assessment/Plan Hospital Course (Demo Recall) IMP: 1. Encephalopathy--post-ictal state s/p status epilepticus. Possibly secondary to elevated phenobarbital level. 2. Vent Dependence 2/2 #1 3. Metabolic acidosis likely secondary to hypoperfusion. Now improved 4. Status post septic Shock 5. s/p lactic acidosis RECS: 1. Titrate levophed to MAP > 65 mm Hg 2. Intravenous antibiotics; de-escalate pending cultures 3. Continue antiepileptics per Neuro 4. Minimize sedation; continue to follow neuro exam 5. DVT and GI prophylaxis Family meeting Monday morning. To discuss goals of care. Family leaning towards terminal extubation. JODI MOY MD, [facility] Sep 26, 2018 11:20
--- NOTE | 2018-09-26 11:37 | CONS ---
Assessment/Plan Assessment/Plan Hospital Course (Demo Recall) Off pressors looks comfortable on vent no fevers overnight WBC 5.7 platelets 189 BUN 11 creatinine 0.34 chest x-ray this morning revealed increased bilateral infiltrates Antimicrobials: Cefepime Microbiology: Urine culture grew Streptococcus, sputum culture growing pseudomonas aeruginosa Indwelling: Endotracheal tube, orogastric tube Prince catheter left upper extremity PICC line Physical examination: Well-developed chronically ill-appearing middle-aged woman who is intubated in no distress. Head atraumatic normocephalic. Sclera nonicteric. Neck is supple. Chest rise symmetrical, breath sounds diminished bases. Heart: S1-S2. Abdomen soft bowel sounds present, hypoactive. Extr emities cyanotic with trace edema Assessment: 1. Sepsis 2. Gram-positive cocci bacteremia cw contaminant 3. Respiratory failure/PNA 4. 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 Acute on chronic encephalopathy 6. Status post urinary tract infection Plan: Remains unchanged, stable off pressors continue present care, antibiotics, neurology/pulmonary recommendations ongoing discussion with family regarding plan of care Consultation Date/Type/Reason Admit Date/Time Sep 16, 2018 at 22:12 Initial Consult Date 09/18/18 Type of Consult id Requesting Provider: ANGELLA PERRIN Date/Time of Note DATE: 09/26/18 TIME: 11:36 Exam/Review of Systems Exam Vitals Vital Signs Date Temp Pulse Resp B/P (MAP) Pulse Ox O2 O2 Flow FiO2 Time Delivery Rate 09/26/18 73 14 101/60 100 09:30 (74) 09/26/18 Mechanical 09:00 Ventilator 09/26/18 30 08:00 09/26/18 98.7 07:00 Intake and Output 09/25/18 09/25/18 09/26/18 1515:00 23:00 07:00 IntakeIntake Total 717.9 ml 732.9 ml 690 ml OutputOutput Total 390 ml 360 ml 400 ml BalanceBalance 327.9 ml 372.9 ml 290 ml Results Result Diagram: 09/26/18 0447 09/26/18 0447 Results 24hrs Laboratory Tests Test 09/26/18 04:47 09/26/18 07:00 White Blood Count 5.7 # Red Blood Count 2.76 L Hemoglobin 8.6 L Hematocrit 25.8 L Mean Corpuscular Volume 93.5 Mean Corpuscular Hemoglobin 31.2 Mean Corpuscular Hemoglobin Concent 33.3 Red Cell Distribution Width 12.9 Platelet Count 189 Mean Platelet Volume 11.3 H Immature Granulocytes % 1.200 H Neutrophils % Segmented Neutrophils % (Manual) 66 Band Neutrophils % (Manual) 7 H Lymphocytes % Lymphocytes % (Manual) 16 Reactive Lymphocytes % (Manual) 3 H Monocytes % Monocytes % (Manual) 5 Eosinophils % Eosinophils % (Manual) 3 Basophils % Nucleated Red Blood Cells % 0.4 H Immature Granulocytes # 0.070 H Neutrophils # Neutrophils # (Manual) 3.8 Band Neutrophils # 0.3 Lymphocytes (Manual) 0.9 Lymphocytes # Reactive Lymphocytes # 0.1 H Monocytes # Monocytes # (Manual) 0.2 L Eosinophils # Basophils # Nucleated Red Blood Cells # Platelet Estimate NORMAL Polychromasia 1+ Anisocytosis 1+ Sodium Level 130 L Potassium Level 4.3 Chloride Level 96 L Carbon Dioxide Level 29 Anion Gap 5 Blood Urea Nitrogen 11 Creatinine 0.34 L Est Glomerular Filtrat Rate mL/min > 60 Glucose Level 110 Calcium Level 8.0 L Blood Gas Specimen Source Blood arterial Arterial Blood Date Drawn 09/26/2018 7:28:03 AM Arterial Blood pH (Temp corrected) 7.517 H Arterial Blood pCO2 (Temp correct) 35.6 Arterial Blood pO2 (Temp corrected) 88.6 Arterial Blood HCO3 28.2 H Arterial Blood Base Excess 5.1 H Arterial Blood Oxygen Saturation 96.6 Tino Test ACCEPTAB Arterial Blood Gas Puncture Site Right Radial Arterial Blood Carboxyhemoglobin 0.3 Arterial Blood Methemoglobin 0.2 Blood Gas A-a O2 Differential 83.5 H Oxyhemoglobin Percent 96.1 Blood Gas Temperature 37.0 Blood Gas Respiration Rate 14.0 Blood Gas Actual Respiration Rate 14 Blood Gas Modality VENT - AC FiO2 30.0 Blood Gas Tidal Volume 400.0 Blood Gas Low PEEP Setting 5.0 Blood Gas Notified Whom TM Blood Gas Notified Time 09/26/2018 7:59:36 AM Medications Medication Current Medications IV Flush (NS 3 ml) 3 ml PER PROTOCOL IV ; Start 09/17/18 at 03:30 Ondansetron HCl (Zofran Inj) 4 mg Q6H PRN IV NAUSEA/VOMITING; Start 09/17/18 at 03:30 Acetaminophen (Tylenol Tab) 650 mg Q6H PRN PO .PAIN 1-3 OR TEMP; Start 09/17/18 at 03:30 Docusate Sodium (Colace) 100 mg Q12H PRN PO .CONSTIPATION; Start 09/17/18 at 03:30 Magnesium Hydroxide (Milk Of Mag) 30 ml DAILY PRN PO .CONSTIPATION; Start 09/17/18 at 03:30 Heparin Sodium (Porcine) (Heparin (5000 Units/1ml)) 5,000 unit Q12 SC Last administered on 09/26/18at 08:45; Admin Dose 5,000 UNIT; Start 09/17/18 at 09:00 Albuterol/ Ipratropium (Duoneb) 3 ml Q4H RESP THERAPY PRN HHN SHORTNESS OF BREATH; Start 09/17/18 at 03:30 Hydralazine HCl (Apresoline) 10 mg Q6H PRN IV ELEVATED BLOOD PRESSURE; Start 09/17/18 at 03:30 Nitroglycerin (Nitroglycerin (Sl Tab) 0.4 Mg) 1 tab Q5M PRN SL ANGINA; Start 09/17/18 at 03:30 Lorazepam (Ativan) 1 mg Q2H PRN IV SEIZURES Last administered on 09/17/18at 03:57; Admin Dose 1 MG; Start 09/17/18 at 03:30 Miscellaneous Information (Pending Santyl Order For Wound Care) This patient goel... PRN PRN XX WOUND CARE; Start 09/17/18 at 05:00 Propofol 100 ml @ 1.227 mls/ hr Q12H IV ; Start 09/18/18 at 21:00 Collagenase (Santyl) 1 applic DAILY TOP Last administered on 09/26/18at 08:36; Admin Dose 1 APPLIC; Start 09/19/18 at 11:30 IV Flush (NS 10 ml) 10 ml PRN PRN IV IV PROTOCOL; Start 09/19/18 at 15:00 Cefepime HCl 50 ml @ 100 mls/hr Q12 IVPB Last administered on 09/26/18at 08:36; Admin Dose 100 MLS/HR; Start 09/21/18 at 13:00 Levetiracetam 250 mg/Dextrose 102.5 ml @ 430 mls/hr Q12 IVPB Last administered on 09/26/18at 09:43; Admin Dose 430 MLS/HR; Start 2/11/19 at 21:00 Lansoprazole (Prevacid) 30 mg DAILY@06 PO Last administered on 09/26/18at 05:56; Admin Dose 30 MG; Start 09/25/18 at 06:00 Norepinephrine 250 ml @ 1.875 mls/ hr TITRATE IV ; Start 09/26/18 at 10:30 ZHANE TERAN NP Sep 26, 2018 11:37
--- NOTE | 2018-09-26 11:59 | CONS ---
Assessment/Plan Assessment/Plan Assessment/Plan (Daily) Respiratory failure Intubated Urinary tract infection Broad-spectrum IV antibiotic coverage given With electrolyte abnormalities Corrected Altered mental status recent history of precipitous decline in cognitive abilities Negative workup per spouse I would be meeting with family members on Monday this week September 28 if family decides on terminal extubation I will assist with end-of-life care. Consultation Date/Type/Reason Admit Date/Time Sep 16, 2018 at 22:12 Date/Time of Note DATE: 09/26/18 TIME: 11:57 Hx of Present Illness Is a palliative care consultation on this very unfortunate 58-year-old female. She has a long and a confusing past medical history. But essentially was brought to [facility] when patient presumably began to have status seizure activity.. She apparently has been worked up in the past for an unknown neurological disorder that have led to progressively decrease in her cognitive abilities beginning approximately 1 year ago she has been seen in the intensive care unit seizures are under control at this time but however patient is intubated. History is taken from patient's at the bedside. Fluid and electrolyte abnormalities have been corrected while she is in the intensive care unit, she is currently on Keppra 500 mg IV and is being seen by neurology consultation. By her or her 's story approximately 1 year ago she began to have signs of cognitive impairment, specifically slurring of her words forgetfulness unable to eat except with her fingers grabbing food. She has been seen and worked up extensively by other outside hospitals including [facility] and no diagnosis has been made and patient has continued to deteriorate. According to she has deteriorated since she is recently lost first-degree family members 1 year ago. states that patient has deteriorated so much so that he feels that there is no quality of life and he is discussed terminal extubation with Dr. Gray during this hospitalization.. But he has made it very clear there are other family members to have strong opinions in addition. He has made it very clear that he will make final decisions on whether not patient will have a terminal extubation this week. Otherwise patient is received aggressive intervention for treatment of urinary tract infection corrective fluid and electrolyte abnormalities blood pressure control. Cannot obtain Past Medical History Home Meds Reported Medications Cyanocobalamin* (Vitamin B-12*) 50 Mcg Tablet, 50 MCG PO DAILY, TAB 09/17/18 Amlodipine Besylate* (Amlodipine Besylate*) 2.5 Mg Tablet, 5 MG PO DAILY, #30 TAB 09/17/18 Risperidone* (Risperidone*) 0.5 Mg Tablet, 0.5 MG PO DAILY, TAB 09/17/18 Lamotrigine* (Lamotrigine*) 25 Mg Tablet, 25 MG PO DAILY, TAB 09/17/18 Benztropine Mesylate* (Benztropine Mesylate*) 2 Mg Tablet, 2 MG PO BID, TAB 09/17/18 Medications Current Medications IV Flush (NS 3 ml) 3 ml PER PROTOCOL IV ; Start 09/17/18 at 03:30 Ondansetron HCl (Zofran Inj) 4 mg Q6H PRN IV NAUSEA/VOMITING; Start 09/17/18 at 03:30 Acetaminophen (Tylenol Tab) 650 mg Q6H PRN PO .PAIN 1-3 OR TEMP; Start 09/17/18 at 03:30 Docusate Sodium (Colace) 100 mg Q12H PRN PO .CONSTIPATION; Start 09/17/18 at 03:30 Magnesium Hydroxide (Milk Of Mag) 30 ml DAILY PRN PO .CONSTIPATION; Start 09/17/18 at 03:30 Heparin Sodium (Porcine) (Heparin (5000 Units/1ml)) 5,000 unit Q12 SC Last administered on 09/26/18at 08:45; Admin Dose 5,000 UNIT; Start 09/17/18 at 09:00 Albuterol/ Ipratropium (Duoneb) 3 ml Q4H RESP THERAPY PRN HHN SHORTNESS OF BREATH; Start 09/17/18 at 03:30 Hydralazine HCl (Apresoline) 10 mg Q6H PRN IV ELEVATED BLOOD PRESSURE; Start 09/17/18 at 03:30 Nitroglycerin (Nitroglycerin (Sl Tab) 0.4 Mg) 1 tab Q5M PRN SL ANGINA; Start 09/17/18 at 03:30 Lorazepam (Ativan) 1 mg Q2H PRN IV SEIZURES Last administered on 09/17/18at 03:57; Admin Dose 1 MG; Start 09/17/18 at 03:30 Miscellaneous Information ([facility] This patient goel... PRN PRN XX WOUND CARE; Start 09/17/18 at 05:00 Propofol 100 ml @ 1.227 mls/ hr Q12H IV ; Start 09/18/18 at 21:00 Collagenase (Santyl) 1 applic DAILY TOP Last administered on 09/26/18at 08:36; Admin Dose 1 APPLIC; Start 09/19/18 at 11:30 IV Flush (NS 10 ml) 10 ml PRN PRN IV IV PROTOCOL; Start 09/19/18 at 15:00 Cefepime HCl 50 ml @ 100 mls/hr Q12 IVPB Last administered on 09/26/18at 08:36; Admin Dose 100 MLS/HR; Start 09/21/18 at 13:00 Levetiracetam 250 mg/Dextrose 102.5 ml @ 430 mls/hr Q12 IVPB Last administered on 09/26/18at 09:43; Admin Dose 430 MLS/HR; Start 09/24/18 at 21:00 Lansoprazole (Prevacid) 30 mg DAILY@06 PO Last administered on 09/26/18at 05:56; Admin Dose 30 MG; Start 09/25/18 at 06:00 Norepinephrine 250 ml @ 1.875 mls/ hr TITRATE IV ; Start 09/26/18 at 10:30 Allergies: Coded Allergies: No Known Allergy (Unverified , 09/17/18) Past Surgical History Past Surgical Hx: other Family History Significant Family History: hypertension, other (Unknown unknown) Social History Alcohol Use: none Smoking Status: Never smoker Drug Use: none Exam/Review of Systems Exam Vitals Vital Signs Date Temp Pulse Resp B/P (MAP) Pulse Ox O2 O2 Flow FiO2 Time Delivery Rate 09/26/18 73 14 101/60 100 09:30 (74) 09/26/18 Mechanical 09:00 Ventilator 09/26/18 30 08:00 09/26/18 98.7 07:00 Intake and Output 09/25/18 09/25/18 09/26/18 1515:00 23:00 07:00 IntakeIntake Total 717.9 ml 732.9 ml 690 ml OutputOutput Total 390 ml 360 ml 400 ml BalanceBalance 327.9 ml 372.9 ml 290 ml Constitutional: non-verbal, frail Head: normocephalic, atraumatic; No lacerations, No hematomas, No other Eyes: nl conjunctiva, EOMI, nl lids, nl sclera, PERRL; No icteric, No fundi, disc, No other ENMT: nl external ears & nose, nl lips & teeth, nl nasal mucosa & septum; No mucosa pink and moist, No intubated, No tympanic membranes, No other Neck: supple, non-tender; No jvd, No bruits, No masses, No thyromegaly, No nuchal rigidity, No other Respiratory: clear to auscultation, normal air movement; No congested cough, No crackles/rales, No diminished breath sounds, No intercostal retraction, No labored breathing, No respirations, No tactile fremitus, No wheezing, No other Cardiovascular: regular rate and rhythm, nl pulses; No bruits, No diastolic murmur, No edema, No gallop, No irregular rhythm, No jugular venous distention (JVD), No murmurs/extra sounds, No rub, No systolic murmur, No S3, No S4, No other Gastrointestinal: soft, nl liver, spleen, non-tender; No ascites, No bowel sounds, No distended, No firm, No hepatomegaly, No mass, No rebound or guarding, No splenomegaly, No surgical scars, No tender, No other Genitourinary - Female: No nl adnexae, No nl external genitalia, No CMT, No CVA tenderness, No uterus, No other Results Result Diagram: 09/26/1844609/26/18446 Results 24hrs Laboratory Tests Test 09/26/18 04:47 09/26/18 07:00 White Blood Count 5.7 # Red Blood Count 2.76 L Hemoglobin 8.6 L Hematocrit 25.8 L Mean Corpuscular Volume 93.5 Mean Corpuscular Hemoglobin 31.2 Mean Corpuscular Hemoglobin Concent 33.3 Red Cell Distribution Width 12.9 Platelet Count 189 Mean Platelet Volume 11.3 H Immature Granulocytes % 1.200 H Neutrophils % Segmented Neutrophils % (Manual) 66 Band Neutrophils % (Manual) 7 H Lymphocytes % Lymphocytes % (Manual) 16 Reactive Lymphocytes % (Manual) 3 H Monocytes % Monocytes % (Manual) 5 Eosinophils % Eosinophils % (Manual) 3 Basophils % Nucleated Red Blood Cells % 0.4 H Immature Granulocytes # 0.070 H Neutrophils # Neutrophils # (Manual) 3.8 Band Neutrophils # 0.3 Lymphocytes (Manual) 0.9 Lymphocytes # Reactive Lymphocytes # 0.1 H Monocytes # Monocytes # (Manual) 0.2 L Eosinophils # Basophils # Nucleated Red Blood Cells # Platelet Estimate NORMAL Polychromasia 1+ Anisocytosis 1+ Sodium Level 130 L Potassium Level 4.3 Chloride Level 96 L Carbon Dioxide Level 29 Anion Gap 5 Blood Urea Nitrogen 11 Creatinine 0.34 L Est Glomerular Filtrat Rate mL/min > 60 Glucose Level 110 Calcium Level 8.0 L Blood Gas Specimen Source Blood arterial Arterial Blood Date Drawn 09/26/2018 7:28:03 AM Arterial Blood pH (Temp corrected) 7.517 H Arterial Blood pCO2 (Temp correct) 35.6 Arterial Blood pO2 (Temp corrected) 88.6 Arterial Blood HCO3 28.2 H Arterial Blood Base Excess 5.1 H Arterial Blood Oxygen Saturation 96.6 Tino Test ACCEPTAB Arterial Blood Gas Puncture Site Right Radial Arterial Blood Carboxyhemoglobin 0.3 Arterial Blood Methemoglobin 0.2 Blood Gas A-a O2 Differential 83.5 H Oxyhemoglobin Percent 96.1 Blood Gas Temperature 37.0 Blood Gas Respiration Rate 14.0 Blood Gas Actual Respiration Rate 14 Blood Gas Modality VENT - AC FiO2 30.0 Blood Gas Tidal Volume 400.0 Blood Gas Low PEEP Setting 5.0 Blood Gas Notified Whom TM Blood Gas Notified Time 09/26/2018 7:59:36 AM Medications Medication Current Medications IV Flush (NS 3 ml) 3 ml PER PROTOCOL IV ; Start 09/17/18 at 03:30 Ondansetron HCl (Zofran Inj) 4 mg Q6H PRN IV NAUSEA/VOMITING; Start 09/17/18 at 03:30 Acetaminophen (Tylenol Tab) 650 mg Q6H PRN PO .PAIN 1-3 OR TEMP; Start 09/17/18 at 03:30 Docusate Sodium (Colace) 100 mg Q12H PRN PO .CONSTIPATION; Start 09/17/18 at 03:30 Magnesium Hydroxide (Milk Of Mag) 30 ml DAILY PRN PO .CONSTIPATION; Start 09/17/18 at 03:30 Heparin Sodium (Porcine) (Heparin (5000 Units/1ml)) 5,000 unit Q12 SC Last administered on 09/26/18at 08:45; Admin Dose 5,000 UNIT; Start 09/17/18 at 09:00 Albuterol/ Ipratropium (Duoneb) 3 ml Q4H RESP THERAPY PRN HHN SHORTNESS OF BREATH; Start 09/17/18 at 03:30 Hydralazine HCl (Apresoline) 10 mg Q6H PRN IV ELEVATED BLOOD PRESSURE; Start 09/17/18 at 03:30 Nitroglycerin (Nitroglycerin (Sl Tab) 0.4 Mg) 1 tab Q5M PRN SL ANGINA; Start 09/17/18 at 03:30 Lorazepam (Ativan) 1 mg Q2H PRN IV SEIZURES Last administered on 09/17/18at 0 3:57; Admin Dose 1 MG; Start 09/17/18 at 03:30 Miscellaneous Information (Pending Santyl Order For Wound Care) This patient goel... PRN PRN XX WOUND CARE; Start 09/17/18 at 05:00 Propofol 100 ml @ 1.227 mls/ hr Q12H IV ; Start 09/18/18 at 21:00 Collagenase (Santyl) 1 applic DAILY TOP Last administered on 09/26/18at 08:36; Admin Dose 1 APPLIC; Start 09/19/18 at 11:30 IV Flush (NS 10 ml) 10 ml PRN PRN IV IV PROTOCOL; Start 09/19/18 at 15:00 Cefepime HCl 50 ml @ 100 mls/hr Q12 IVPB Last administered on 09/26/18at 08:36; Admin Dose 100 MLS/HR; Start 09/21/18 at 13:00 Levetiracetam 250 mg/Dextrose 102.5 ml @ 430 mls/hr Q12 IVPB Last administered on 09/26/18at 09:43; Admin Dose 430 MLS/HR; Start 09/24/18 at 21:00 Lansoprazole (Prevacid) 30 mg DAILY@06 PO Last administered on 09/26/18at 05:56; Admin Dose 30 MG; Start 09/25/18 at 06:00 Norepinephrine 250 ml @ 1.875 mls/ hr TITRATE IV ; Start 09/26/18 at 10:30 SWATI COBB Sep 26, 2018 11:59
--- NOTE | 2018-09-26 13:32 | CONS ---
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 She was additionally reported to have a seizure... for which neurology is co nsulted. Most clinically consistent with new onset epilepsy. Initial EEG was notable for GPEDs and an electrographic seizure originating in the R temporal region.. s/p Dilantin load, with ongoing episodic staring spells (presumed seizures) noted clinically.. s/p Phenobarbital load on 09/18..with resolution of episodes suspicious for seizure P: Await repeat phb level, to ensure clearance from system Continue Keppra bid for now; 250mg.. Limit other sedating medications where possible Other medical management per primary Will follow clinically Consultation Date/Type/Reason Admit Date/Time Sep 16, 2018 at 22:12 Type of Consult Neurology Requesting Provider: ANGELLA PERRIN Date/Time of Note DATE: 09/26/18 TIME: 13:30 24 HR Interval Summary Free Text/Dictation Continues icu care Exam Vital Signs Vitals Vital Signs Date Temp Pulse Resp B/P (MAP) Pulse Ox O2 O2 Flow FiO2 Time Delivery Rate 09/26/18 98.0 68 14 101/68 100 Mechanical 12:00 (79) Ventilator 09/26/18 30 08:00 Intake and Output 09/25/18 09/25/18 09/26/18 1515:00 23:00 07:00 IntakeIntake Total 717.9 ml 732.9 ml 690 ml OutputOutput Total 390 ml 360 ml 400 ml BalanceBalance 327.9 ml 372.9 ml 290 ml Exam PE: Gen Appearance: No Apparent Distress HEENT: Intubated Cardiovascular: Regular rate Abdomen: Soft Extremities: Dry NE: The patient was obtunded and nonverbal. Cranial nerve examination was limited by mental status. Pupils were equal and reactive to light. There was no afferent pupillary defect. Funduscopic examination was limited. Face was grossly symmetric, w/ present corneal and cough reflexes. Tone was increased. Muscle bulk was reduced. I did not see fasciculations. The patient withdrew to noxious stimulation x 4. Coordination and gait testing was limited by mental status. Arm and leg reflexes were within normal limits and symmetric. Hudson's sign was absent. Plantar responses were flexor. CA ZURITA Sep 26, 2018 13:32
[2018-09-26] MEDS ORDERED: MAGNESIUM SULFATE 1 GM/D5W 100 ML IVPB ONE (16:30)
[2018-09-27] VITALS (36 sets, daily range): BP systolic 89–128; BP diastolic 53–97; PULSE 68–84; RESP 12–25
[2018-09-27] MEDS: LANSOPRAZOLE 30 MG CAP PO SCH (05:25)
[2018-09-27] MEDS: PROPOFOL 100 ML IV SCH (08:24)
[2018-09-27] MEDS: CEFEPIME 1GM/50 ML (PMX) 50 ML IVPB SCH ×2 (08:25→21:07)
[2018-09-27] MEDS: HEPARIN 5,000 UNIT/1 ML VIAL SC SCH ×2 (08:27→21:08)
[2018-09-27] MEDS: BALSAM PERU/CASTOR OIL 60 GM TUBE TOP SCH ×2 (08:30→21:09)
[2018-09-27] MEDS: COLLAGENASE 5 GM (UD JAR) TOP SCH (08:30)
[2018-09-27] MEDS: LEVETIRACETAM IV 250 MG in DEXTROSE 5% 100 ML IVPB SCH ×2 (10:07→21:47)
--- NOTE | 2018-09-27 10:21 | CONS ---
Consult Date/Type/Reason Admit Date/Time Sep 16, 2018 at 22:12 Initial Consult Date 09/18/18 Type of Consult Pulmonary Requesting Provider: ANGELLA PERRIN Date/Time of Note DATE: 09/27/18 TIME: 10:20 Subjective Opens eyes but not following commands. Currently hemodynamically stable. Objective Vital Signs Date Temp Pulse Resp B/P (MAP) Pulse Ox O2 O2 Flow FiO2 Time Delivery Rate 09/27/18 70 13 100/62 100 Mechanical 10:00 (75) Ventilator 09/27/18 98.4 08:00 09/27/18 30 07:37 Intake and Output 09/26/18 09/26/18 09/27/18 1515:00 23:00 07:00 IntakeIntake Total 622.5 ml 432.5 ml 670 ml OutputOutput Total 1600 ml 610 ml 795 ml BalanceBalance -977.5 ml -177.5 ml -125 ml Exam GENERAL: Chronically ill-appearing lady on mechanical ventilation VITAL SIGNS: per chart NECK: Supple. No JVD or lymphadenopathy. CARDIAC EXAM: S1, S2. No added sounds or murmurs. CHEST: clear bilaterally, No added sounds, rales or wheezes ABDOMEN: Soft, nontender. No guarding or rebound. EXTREMITIES: No cyanosis, clubbing or edema. NEUROLOGIC: Generalized weakness. Unable to assess Vent Setting Ventilator Support Mode: AC Fraction of Inspired Oxygen pe: 30 Positive End Expiratory Pressu: 5.0 Results/Medications Result Diagram: 09/27/18 0434 09/27/18 0431 Results 24 hrs Laboratory Tests Test 09/27/18 04:31 09/27/18 04:34 Sodium Level 131 L Potassium Level 4.2 Chloride Level 94 L Carbon Dioxide Level 30 Anion Gap 7 Blood Urea Nitrogen 12 Creatinine 0.36 L Est Glomerular Filtrat Rate mL/min > 60 Glucose Level 101 Calcium Level 7.8 L Magnesium Level 2.1 White Blood Count 11.8 #H Red Blood Count 2.85 L Hemoglobin 8.8 L Hematocrit 26.3 L Mean Corpuscular Volume 92.3 Mean Corpuscular Hemoglobin 30.9 Mean Corpuscular Hemoglobin Concent 33.5 Red Cell Distribution Width 12.5 Platelet Count 257 # Mean Platelet Volume 10.2 Immature Granulocytes % 1.000 H Neutrophils % 73.7 Lymphocytes % 12.1 L Monocytes % 9.8 Eosinophils % 3.1 Basophils % 0.3 Nucleated Red Blood Cells % 0.0 Immature Granulocytes # 0.120 H Neutrophils # 8.7 H Lymphocytes # 1.4 Monocytes # 1.2 H Eosinophils # 0.4 Basophils # 0.0 Nucleated Red Blood Cells # 0.0 Medications Current Medications IV Flush (NS 3 ml) 3 ml PER PROTOCOL IV ; Start 09/17/18 at 03:30 Ondansetron HCl (Zofran Inj) 4 mg Q6H PRN IV NAUSEA/VOMITING; Start 09/17/18 at 03:30 Acetaminophen (Tylenol Tab) 650 mg Q6H PRN PO .PAIN 1-3 OR TEMP; Start 09/17/18 at 03:30 Docusate Sodium (Colace) 100 mg Q12H PRN PO .CONSTIPATION; Start 09/17/18 at 03:30 Magnesium Hydroxide (Milk Of Mag) 30 ml DAILY PRN PO .CONSTIPATION; Start 09/17/18 at 03:30 Heparin Sodium (Porcine) (Heparin (5000 Units/1ml)) 5,000 unit Q12 SC Last administered on 09/27/18at 08:27; Admin Dose 5,000 UNIT; Start 09/17/18 at 09:00 Albuterol/ Ipratropium (Duoneb) 3 ml Q4H RESP THERAPY PRN HHN SHORTNESS OF BREATH; Start 09/17/18 at 03:30 Hydralazine HCl (Apresoline) 10 mg Q6H PRN IV ELEVATED BLOOD PRESSURE; Start 09/17/18 at 03:30 Nitroglycerin (Nitroglycerin (Sl Tab) 0.4 Mg) 1 tab Q5M PRN SL ANGINA; Start 09/17/18 at 03:30 Lorazepam (Ativan) 1 mg Q2H PRN IV SEIZURES Last administered on 09/17/18at 03:57; Admin Dose 1 MG; Start 09/17/18 at 03:30 Miscellaneous Information (Pending Santyl Order For Wound Care) This patient goel... PRN PRN XX WOUND CARE; Start 09/17/18 at 05:00 Propofol 100 ml @ 1.227 mls/ hr Q12H IV ; Start 09/18/18 at 21:00 Collagenase (Santyl) 1 applic DAILY TOP Last administered on 09/26/18at 08:36; Admin Dose 1 APPLIC; Start 09/19/18 at 11:30 IV Flush (NS 10 ml) 10 ml PRN PRN IV IV PROTOCOL; Start 09/19/18 at 15:00 Cefepime HCl 50 ml @ 100 mls/hr Q12 IVPB Last administered on 09/27/18at 08:25; Admin Dose 100 MLS/HR; Start 09/21/18 at 13:00 Levetiracetam 250 mg/Dextrose 102.5 ml @ 430 mls/hr Q12 IVPB Last administered on 09/27/18at 10:07; Admin Dose 430 MLS/HR; Start 09/24/18 at 21:00 Lansoprazole (Prevacid) 30 mg DAILY@06 PO Last administered on 09/27/18at 05:25; Admin Dose 30 MG; Start 09/25/18 at 06:00 Norepinephrine 250 ml @ 1.875 mls/ hr TITRATE IV ; Start 09/26/18 at 10:30 Assessment/Plan Hospital Course (Demo Recall) IMP: 1. Encephalopathy--post-ictal state s/p status epilepticus. Possibly secondary to elevated phenobarbital level. 2. Vent Dependence 09/15 #1 3. Metabolic acidosis likely secondary to hypoperfusion. Now improved 4. Status post septic Shock 5. s/p lactic acidosis RECS: 1. Titrate levophed to MAP > 65 mm Hg 2. Intravenous antibiotics; de-escalate pending cultures 3. Continue antiepileptics per Neuro 4. Minimize sedation; continue to follow neuro exam 5. DVT and GI prophylaxis Family meeting Monday morning. To discuss goals of care. Family leaning towards terminal extubation. We will continue supportive care. JODI MOY MD, [facility] Sep 27, 2018 10:21
--- NOTE | 2018-09-27 13:34 | CONS ---
Assessment/Plan Assessment/Plan Hospital Course (Demo Recall) No acute events no fevers patient is in no distress comfortable on vent, off pressors WBC 11.8 platelets 257 neutrophils 73.7 BUN 12 creatinine 0.36 Antimicrobials: Cefepime Microbiology: Urine culture grew Streptococcus, sputum culture + pseudomonas aeruginosa Indwelling: Endotracheal tube, orogastric tube Prince catheter left upper extremity PICC line Physical examination: Well-developed chronically ill-appearing middle-aged woman who is intubated in no distress. Head atraumatic normocephalic. Sclera nonicteric. Neck is supple. Chest rise symmetrical, breath sounds diminished b ases. Heart: S1-S2. Abdomen soft bowel sounds present, hypoactive. Extremities cyanotic with trace edema Assessment: 1. Sepsis, s/p shock 2. Gram-positive cocci bacteremia cw contaminant 3. Respiratory failure/PNA 4. 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 Acute on chronic encephalopathy 6. Status post urinary tract infection Plan: Remains stable off pressors continue present care, antibiotics, neurology/pulmonary recommendations, family to decide regarding plan of care Consultation Date/Type/Reason Admit Date/Time Sep 16, 2018 at 22:12 Initial Consult Date 09/18/18 Type of Consult id Requesting Provider: ANGELLA PERRIN Date/Time of Note DATE: 09/27/18 TIME: 13:33 Exam/Review of Systems Exam Vitals Vital Signs Date Temp Pulse Resp B/P (MAP) Pulse Ox O2 O2 Flow FiO2 Time Delivery Rate 09/27/18 98.7 76 14 100/70 100 Mechanical 12:00 (80) Ventilator 09/27/18 30 07:37 Intake and Output 09/26/18 09/26/18 09/27/18 1515:00 23:00 07:00 IntakeIntake Total 622.5 ml 432.5 ml 670 ml OutputOutput Total 1600 ml 610 ml 795 ml BalanceBalance -977.5 ml -177.5 ml -125 ml Results Result Diagram: 09/27/18 0434 09/27/18 0431 Results 24hrs Laboratory Tests Test 09/27/18 04:31 09/27/18 04:34 09/27/18 11:32 Sodium Level 131 L Potassium Level 4.2 Chloride Level 94 L Carbon Dioxide Level 30 Anion Gap 7 Blood Urea Nitrogen 12 Creatinine 0.36 L Est Glomerular Filtrat > 60 Rate mL/min Glucose Level 101 Calcium Level 7.8 L Magnesium Level 2.1 White Blood Count 11.8 #H Red Blood Count 2.85 L Hemoglobin 8.8 L Hematocrit 26.3 L Mean Corpuscular Volume 92.3 Mean Corpuscular Hemoglobin 30.9 Mean Corpuscular 33.5 Hemoglobin Concent Red Cell Distribution Width 12.5 Platelet Count 257 # Mean Platelet Volume 10.2 Immature Granulocytes % 1.000 H Neutrophils % 73.7 Lymphocytes % 12.1 L Monocytes % 9.8 Eosinophils % 3.1 Basophils % 0.3 Nucleated Red Blood Cells % 0.0 Immature Granulocytes # 0.120 H Neutrophils # 8.7 H Lymphocytes # 1.4 Monocytes # 1.2 H Eosinophils # 0.4 Basophils # 0.0 Nucleated Red Blood Cells # 0.0 Lab Scanned Report REFERENCE LAB Medications Medication Current Medications IV Flush (NS 3 ml) 3 ml PER PROTOCOL IV ; Start 09/17/18 at 03:30 Ondansetron HCl (Zofran Inj) 4 mg Q6H PRN IV NAUSEA/VOMITING; Start 09/17/18 at 03:30 Acetaminophen (Tylenol Tab) 650 mg Q6H PRN PO .PAIN 1-3 OR TEMP; Start 09/17/18 at 03:30 Docusate Sodium (Colace) 100 mg Q12H PRN PO .CONSTIPATION; Start 09/17/18 at 03:30 Magnesium Hydroxide (Milk Of Mag) 30 ml DAILY PRN PO .CONSTIPATION; Start 09/17/18 at 03:30 Heparin Sodium (Porcine) (Heparin (5000 Units/1ml)) 5,000 unit Q12 SC Last administered on 09/27/18at 08:27; Admin Dose 5,000 UNIT; Start 09/17/18 at 09:00 Albuterol/ Ipratropium (Duoneb) 3 ml Q4H RESP THERAPY PRN HHN SHORTNESS OF BREATH; Start 09/17/18 at 03:30 Hydralazine HCl (Apresoline) 10 mg Q6H PRN IV ELEVATED BLOOD PRESSURE; Start 09/17/18 at 03:30 Nitroglycerin (Nitroglycerin (Sl Tab) 0.4 Mg) 1 tab Q5M PRN SL ANGINA; Start 09/17/18 at 03:30 Lorazepam (Ativan) 1 mg Q2H PRN IV SEIZURES Last administered on 09/17/18 03:57; Admin Dose 1 MG; Start 09/17/18 at 03:30 Miscellaneous Information (Pending Santyl Order For Wound Care) This patient goel... PRN PRN XX WOUND CARE; Start 09/17/18 at 05:00 Propofol 100 ml @ 1.227 mls/ hr Q12H IV ; Start 09/18/18 at 21:00 Collagenase (Santyl) 1 applic DAILY TOP Last administered on 09/26/18at 08:36; Admin Dose 1 APPLIC; Start 09/19/18 at 11:30 IV Flush (NS 10 ml) 10 ml PRN PRN IV IV PROTOCOL; Start 09/19/18 at 15:00 Cefepime HCl 50 ml @ 100 mls/hr Q12 IVPB Last administered on 09/27/18at 08:25; Admin Dose 100 MLS/HR; Start 09/21/18 at 13:00 Levetiracetam 250 mg/Dextrose 102.5 ml @ 430 mls/hr Q12 IVPB Last administered on 09/27/18at 10:07; Admin Dose 430 MLS/HR; Start 09/24/18 at 21:00 Lansoprazole (Prevacid) 30 mg DAILY@06 PO Last administered on 09/27/18at 05:25; Admin Dose 30 MG; Start 09/25/18 at 06:00 Norepinephrine 250 ml @ 1.875 mls/ hr TITRATE IV ; Start 09/26/18 at 10:30 ZHANE TERAN NP Sep 27, 2018 13:34
--- NOTE | 2018-09-27 13:42 | CONS ---
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 She was additionally reported to have a seizure... for which neurology is co nsulted. Most clinically consistent with new onset epilepsy. Initial EEG was notable for GPEDs and an electrographic seizure originating in the R temporal region.. s/p Dilantin load, with ongoing episodic staring spells (presumed seizures) noted clinically.. s/p Phenobarbital load on 09/18..with resolution of episodes suspicious for seizure P: Repeat phb level, to ensure clearance from system Continue Keppra bid for now; 250mg.. Limit other sedating medications where possible Other medical management per primary Will follow clinically Consultation Date/Type/Reason Admit Date/Time Sep 16, 2018 at 22:12 Type of Consult Neurology Reason for Consultation new onset seizures Requesting Provider: ANGELLA PERRIN Date/Time of Note DATE: 09/27/18 TIME: 13:42 24 HR Interval Summary Free Text/Dictation Continues critical care. Pt reportedly waking up a little bit more per family at bedside. Pt remains unable to contribute at this time. Subjective hx not possible: pt non-verbal, pt critical Exam Vital Signs Vitals Vital Signs Date Temp Pulse Resp B/P (MAP) Pulse Ox O2 O2 Flow FiO2 Time Delivery Rate 09/27/18 98.7 76 14 100/70 100 Mechanical 12:00 (80) Ventilator 09/27/18 30 07:37 Intake and Output 09/26/18 09/26/18 09/27/18 1515:00 23:00 07:00 IntakeIntake Total 622.5 ml 432.5 ml 670 ml OutputOutput Total 1600 ml 610 ml 795 ml BalanceBalance -977.5 ml -177.5 ml -125 ml Exam PE: Gen Appearance: No Apparent Distress HEENT: Intubated Cardiovascular: Regular rate Abdomen: Soft Extremities: Dry NE: The patient was obtunded and nonverbal. Difficult to arouse, however the pt stayed awake once woken up. Did not track or follow commands. Cranial nerve examination was limited by mental status. Pupils were equal and reactive to light. There was no afferent pupillary defect. Funduscopic examination was limited. Face was grossly symmetric, w/ present corneal and cough reflexes. Tone was spastic in BUE. Muscle bulk was reduced. I did not see fasciculations. The patient withdrew to noxious stimulation x 4. Coordination and gait testing was limited by mental status. Arm and leg reflexes were within normal limits and symmetric. Hudson's sign was absent. Plantar responses were flexor. SWEETIE NATARAJAN NP Sep 27, 2018 13:42
--- NOTE | 2018-09-27 17:12 | PN ---
Date/Time of Note Date/Time of Note DATE: 09/27/18 TIME: 17:03 Assessment/Plan VTE Prophylaxis Risk score (from Nsg)>0 risk: 7 SCD applied (from Nsg): Yes Pharmacological prophylaxis: heparin Lines/Catheters IV Catheter Type (from Nrsg): PICC Line Central line still needed: Yes Urinary Cath still in place: Yes Reason Cath still needed: other (indicate) Assessment/Plan Hospital Course S: remains intubated, O: Constitutional: eyes open to painful stimuli, frail, chronically ill looking Head: atraumatic, normocephalic, NC, LISHA sluggish Neck: non-tender, supple Respiratory: coarse, diminished Cardiovascular: regular rate and rhythm Gastrointestinal: S/ NT / ND / +BS Extremities: no edema, good radial pulses, frail, trace purvi le edema assessment and Plan: 58 yo F with a slow early onset dementia, cause unknown who is non verbal at baseline who was brought in for abnormal jerking behavior concerning for seizures # Seizure requiring intubation for airway protection -continue vent support for now -s/p aggressive seizure control for status epilepticus, has been getting serial EEGs and serial phenobarbital levels -EEG from 09/23 showed : The slowing of the background indicates severe, diffuse cortical dysfunction of nonspecific etiology. -Neurology managing, patient on Keppra BID only for now -Avoid / Limit sedation if not ordered by neuro #Sepsis shock with aspiration PNA and UTI - urine growing Streptococcus - Respiratory cultures growing Pseudomonas which is pansensitive - ID managing antibiotics # Chronic dementia/encephalopathy, -nonverbal and bedbound at baseline. Of gradual onset, no organic cause found despite extensive workup per -cared for at home by and children 24hours # + HSV 1 IgG -will order IgM to assess acuity and relevance -empiric antiviral ? # Remote History of West Nile virus infection #Chronic dyslipidemia #Chronic hypertension: currently hypotensive #Chronic psychiatric d/o on risperidone with benztropine for tardive dyskinesia ? 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 - IgM ordered Plan : -At this time continue ICU monitoring and management, -Spoke with neurology yesterday, plan is to give time for phenobarbital to wear off, neuro is expectant of improvement back to baseline, continue to defer to their recommendations, f/u phenobarbital levels, level today subtherapeutic -review condition with family and neuro tomorrow -Continue tube feeds -Continue serial labs and close monitoring -Further interventions will depend on clinical course -POC discussed with nursing staff and consultants and family at bedside Prophylaxis : Heparin / Lansoprazole Care time 40mins Result Diagram: 09/27/18 0434 09/27/18 0431 Results 24hrs Laboratory Tests Test 09/27/18 04:31 09/27/18 04:34 09/27/18 11:32 Sodium Level 131 L Potassium Level 4.2 Chloride Level 94 L Carbon Dioxide Level 30 Anion Gap 7 Blood Urea Nitrogen 12 Creatinine 0.36 L Est Glomerular Filtrat > 60 Rate mL/min Glucose Level 101 Calcium Level 7.8 L Magnesium Level 2.1 White Blood Count 11.8 #H Red Blood Count 2.85 L Hemoglobin 8.8 L Hematocrit 26.3 L Mean Corpuscular Volume 92.3 Mean Corpuscular Hemoglobin 30.9 Mean Corpuscular 33.5 Hemoglobin Concent Red Cell Distribution Width 12.5 Platelet Count 257 # Mean Platelet Volume 10.2 Immature Granulocytes % 1.000 H Neutrophils % 73.7 Lymphocytes % 12.1 L Monocytes % 9.8 Eosinophils % 3.1 Basophils % 0.3 Nucleated Red Blood Cells % 0.0 Immature Granulocytes # 0.120 H Neutrophils # 8.7 H Lymphocytes # 1.4 Monocytes # 1.2 H Eosinophils # 0.4 Basophils # 0.0 Nucleated Red Blood Cells # 0.0 Lab Scanned Report REFERENCE LAB Exam/Review of Systems Exam Vitals Vital Signs Date Temp Pulse Resp B/P (MAP) Pulse Ox O2 O2 Flow FiO2 Time Delivery Rate 09/27/18 69 16:00 09/27/18 98.1 14 96/63 (74) 100 Mechanical 16:00 Ventilator 09/27/18 30 14:48 Intake and Output 09/26/18 09/26/18 09/27/18 1515:00 23:00 07:00 IntakeIntake Total 622.5 ml 432.5 ml 670 ml OutputOutput Total 1600 ml 610 ml 795 ml BalanceBalance -977.5 ml -177.5 ml -125 ml Results Results 24hrs Laboratory Tests Test 09/27/18 04:31 09/27/18 04:34 09/27/18 11:32 Sodium Level 131 L Potassium Level 4.2 Chloride Level 94 L Carbon Dioxide Level 30 Anion Gap 7 Blood Urea Nitrogen 12 Creatinine 0.36 L Est Glomerular Filtrat > 60 Rate mL/min Glucose Level 101 Calcium Level 7.8 L Magnesium Level 2.1 White Blood Count 11.8 #H Red Blood Count 2.85 L Hemoglobin 8.8 L Hematocrit 26.3 L Mean Corpuscular Volume 92.3 Mean Corpuscular Hemoglobin 30.9 Mean Corpuscular 33.5 Hemoglobin Concent Red Cell Distribution Width 12.5 Platelet Count 257 # Mean Platelet Volume 10.2 Immature Granulocytes % 1.000 H Neutrophils % 73.7 Lymphocytes % 12.1 L Monocytes % 9.8 Eosinophils % 3.1 Basophils % 0.3 Nucleated Red Blood Cells % 0.0 Immature Granulocytes # 0.120 H Neutrophils # 8.7 H Lymphocytes # 1.4 Monocytes # 1.2 H Eosinophils # 0.4 Basophils # 0.0 Nucleated Red Blood Cells # 0.0 Lab Scanned Report REFERENCE LAB Medications Medication Current Medications IV Flush (NS 3 ml) 3 ml PER PROTOCOL IV ; Start 09/17/18 at 03:30 Ondansetron HCl (Zofran Inj) 4 mg Q6H PRN IV NAUSEA/VOMITING; Start 09/17/18 at 03:30 Acetaminophen (Tylenol Tab) 650 mg Q6H PRN PO .PAIN 1-3 OR TEMP; Start 09/17/18 at 03:30 Docusate Sodium (Colace) 100 mg Q12H PRN PO .CONSTIPATION; Start 09/17/18 at 03:30 Magnesium Hydroxide (Milk Of Mag) 30 ml DAILY PRN PO .CONSTIPATION; Start 09/17/18 at 03:30 Heparin Sodium (Porcine) (Heparin (5000 Units/1ml)) 5,000 unit Q12 SC Last administered on 09/27/18at 08:27; Admin Dose 5,000 UNIT; Start 09/17/18 at 09:00 Albuterol/ Ipratropium (Duoneb) 3 ml Q4H RESP THERAPY PRN HHN SHORTNESS OF BREATH; Start 09/17/18 at 03:30 Hydralazine HCl (Apresoline) 10 mg Q6H PRN IV ELEVATED BLOOD PRESSURE; Start 09/17/18 at 03:30 Nitroglycerin (Nitroglycerin (Sl Tab) 0.4 Mg) 1 tab Q5M PRN SL ANGINA; Start 09/17/18 at 03:30 Lorazepam (Ativan) 1 mg Q2H PRN IV SEIZURES Last administered on 09/17/18at 03:57; Admin Dose 1 MG; Start 09/17/18 at 03:30 Miscellaneous Information (Pending Santyl Order For Wound Care) This patient goel... PRN PRN XX WOUND CARE; Start 09/17/18 at 05:00 Propofol 100 ml @ 1.227 mls/ hr Q12H IV ; Start 09/18/18 at 21:00 Collagenase (Santyl) 1 applic DAILY TOP Last administered on 09/26/18at 08:36; Admin Dose 1 APPLIC; Start 09/19/18 at 11:30 IV Flush (NS 10 ml) 10 ml PRN PRN IV IV PROTOCOL; Start 09/19/18 at 15:00 Cefepime HCl 50 ml @ 100 mls/hr Q12 IVPB Last administered on 09/27/18at 08:25; Admin Dose 100 MLS/HR; Start 09/21/18 at 13:00 Levetiracetam 250 mg/Dextrose 102.5 ml @ 430 mls/hr Q12 IVPB Last administered on 09/27/18at 10:07; Admin Dose 430 MLS/HR; Start 09/24/18 at 21:00 Lansoprazole (Prevacid) 30 mg DAILY@06 PO Last administered on 09/27/18at 05:25; Admin Dose 30 MG; Start 09/25/18 at 06:00 Norepinephrine 250 ml @ 1.875 mls/ hr TITRATE IV ; Start 09/26/18 at 10:30 DYLAN RAMOS Sep 27, 2018 17:12
[2018-09-27] MEDS ORDERED: FUROSEMIDE 20 MG INJ IV ONE (17:30)
[2018-09-28] VITALS (32 sets, daily range): BP systolic 72–114; BP diastolic 22–75; PULSE 68–78; RESP 14–35
[2018-09-28] MEDS: LANSOPRAZOLE 30 MG CAP PO SCH (05:15)
[2018-09-28] MEDS: PROPOFOL 100 ML IV SCH (09:00)
[2018-09-28] MEDS: COLLAGENASE 5 GM (UD JAR) TOP SCH (09:25)
[2018-09-28] MEDS: LEVETIRACETAM IV 250 MG in DEXTROSE 5% 100 ML IVPB SCH ×2 (09:25→20:54)
[2018-09-28] MEDS: CEFEPIME 1GM/50 ML (PMX) 50 ML IVPB SCH ×2 (09:25→20:54)
[2018-09-28] MEDS: HEPARIN 5,000 UNIT/1 ML VIAL SC SCH ×2 (09:43→20:55)
[2018-09-28] MEDS: BALSAM PERU/CASTOR OIL 60 GM TUBE TOP SCH (09:46)
--- NOTE | 2018-09-28 11:23 | CONS ---
Consult Date/Type/Reason Admit Date/Time Sep 16, 2018 at 22:12 Initial Consult Date 09/18/18 Type of Consult Pulmonary Requesting Provider: ANGELLA PERRIN Date/Time of Note DATE: 09/28/18 TIME: 11:22 Subjective Patient remains mostly somnolent on mechanical ventilation, opens eyes but not following commands. Objective Vital Signs Date Temp Pulse Resp B/P (MAP) Pulse Ox O2 O2 Flow FiO2 Time Delivery Rate 09/28/18 30 09:40 09/28/18 73 08:00 09/28/18 14 100 05:20 09/28/18 98.0 114/75 Mechanical 04:00 (88) Ventilator Intake and Output 09/27/18 09/27/18 09/28/18 1515:00 23:00 07:00 IntakeIntake Total 572.5 ml 572.5 ml 430 ml OutputOutput Total 500 ml 915 ml 450 ml BalanceBalance 72.5 ml -342.5 ml -20 ml Exam GENERAL: Chronically ill-appearing lady on mechanical ventilation VITAL SIGNS: per chart NECK: Supple. No JVD or lymphadenopathy. CARDIAC EXAM: S1, S2. No added sounds or murmurs. CHEST: clear bilaterally, No added sounds, rales or wheezes ABDOMEN: Soft, nontender. No guarding or rebound. EXTREMITIES: No cyanosis, clubbing or edema. NEUROLOGIC: Generalized weakness. Unable to assess Vent Setting Ventilator Support Mode: CPAP, PS Fraction of Inspired Oxygen pe: 30 Positive End Expiratory Pressu: 5.0 Results/Medications Result Diagram: 09/28/18 0415 09/28/18 0415 Results 24 hrs Laboratory Tests Test 09/27/18 11:32 09/27/18 18:02 09/27/18 23:11 09/28/18 04:15 Lab Scanned Report REFERENCE LAB Creatine Kinase < 20 L < 20 L < 20 L Creatine Kinase Index Creatinine Kinase 1.00 0.86 1.02 MB (Mass) Troponin I 0.075 0.091 0.084 White Blood Count 12.1 H Red Blood Count 2.73 L Hemoglobin 8.5 L Hematocrit 25.0 L Mean Corpuscular 91.6 Volume Mean Corpuscular 31.1 Hemoglobin Mean Corpuscular 34.0 Hemoglobin Concent Red Cell 12.6 Distribution Width Platelet Count 352 # Mean Platelet 9.9 Volume Immature 0.800 H Granulocytes % Neutrophils % 76.4 Lymphocytes % 11.3 L Monocytes % 8.7 Eosinophils % 2.5 Basophils % 0.3 Nucleated Red 0.0 Blood Cells % Immature 0.100 H Granulocytes # Neutrophils # 9.3 H Lymphocytes # 1.4 Monocytes # 1.1 H Eosinophils # 0.3 Basophils # 0.0 Nucleated Red 0.0 Blood Cells # Sodium Level 128 L Potassium Level 4.6 Chloride Level 93 L Carbon Dioxide 30 Level Anion Gap 5 Blood Urea 12 Nitrogen Creatinine 0.42 L Est Glomerular > 60 Filtrat Rate mL/min Glucose Level 133 Calcium Level 8.2 L Phosphorus Level 4.8 Magnesium Level 2.0 Total Bilirubin 0.0 L Direct Bilirubin 0.00 Indirect Bilirubin 0.0 Aspartate Amino 25 Transf (AST/SGOT) Alanine 31 Aminotransferase ( ALT/SGPT) Alkaline 34 L Phosphatase Total Protein 4.4 L Albumin 2.2 L Globulin 2.20 Albumin/Globulin 1.00 Ratio Test 09/28/18 09:17 Lab Scanned Report REFERENCE LAB Medications Current Medications IV Flush (NS 3 ml) 3 ml PER PROTOCOL IV ; Start 09/17/18 at 03:30 Ondansetron HCl (Zofran Inj) 4 mg Q6H PRN IV NAUSEA/VOMITING; Start 09/17/18 at 03:30 Acetaminophen (Tylenol Tab) 650 mg Q6H PRN PO .PAIN 1-3 OR TEMP; Start 09/17/18 at 03:30 Docusate Sodium (Colace) 100 mg Q12H PRN PO .CONSTIPATION; Start 09/17/18 at 03:30 Magnesium Hydroxide (Milk Of Mag) 30 ml DAILY PRN PO .CONSTIPATION; Start 09/17/18 at 03:30 Heparin Sodium (Porcine) (Heparin (5000 Units/1ml)) 5,000 unit Q12 SC Last administered on 09/28/18at 09:43; Admin Dose 5,000 UNIT; Start 09/17/18 at 09:00 Albuterol/ Ipratropium (Duoneb) 3 ml Q4H RESP THERAPY PRN HHN SHORTNESS OF BREATH; Start 09/17/18 at 03:30 Hydralazine HCl (Apresoline) 10 mg Q6H PRN IV ELEVATED BLOOD PRESSURE; Start 09/17/18 at 03:30 Nitroglycerin (Nitroglycerin (Sl Tab) 0.4 Mg) 1 tab Q5M PRN SL ANGINA; Start 09/17/18 at 03:30 Lorazepam (Ativan) 1 mg Q2H PRN IV SEIZURES Last administered on 09/17/18at 03:57; Admin Dose 1 MG; Start 09/17/18 at 03:30 Miscellaneous Information (Pending Santyl Order For Wound Care) This patient goel ... PRN PRN XX WOUND CARE; Start 09/17/18 at 05:00 Propofol 100 ml @ 1.227 mls/ hr Q12H IV ; Start 09/18/18 at 21:00 Collagenase (Santyl) 1 applic DAILY TOP Last administered on 09/28/18at 09:25; Admin Dose 1 APPLIC; Start 09/19/18 at 11:30 IV Flush (NS 10 ml) 10 ml PRN PRN IV IV PROTOCOL; Start 09/19/18 at 15:00 Cefepime HCl 50 ml @ 100 mls/hr Q12 IVPB Last administered on 09/28/18at 09:25; Admin Dose 100 MLS/HR; Start 09/21/18 at 13:00 Levetiracetam 250 mg/Dextrose 102.5 ml @ 430 mls/hr Q12 IVPB Last administered on 09/28/18 09:25; Admin Dose 430 MLS/HR; Start 09/24/18 at 21:00 Lansoprazole (Prevacid) 30 mg DAILY@06 PO Last administered on 09/28/18at 05:15; Admin Dose 30 MG; Start 09/25/18 at 06:00 Norepinephrine 250 ml @ 1.875 mls/ hr TITRATE IV ; Start 09/26/18 at 10:30 Assessment/Plan Hospital Course (Demo Recall) IMP: 1. Encephalopathy--post-ictal state s/p status epilepticus. Possibly secondary to elevated phenobarbital level. 2. Vent Dependence 2/ #1 3. Metabolic acidosis likely secondary to hypoperfusion. Now improved 4. Status post septic Shock 5. s/p lactic acidosis RECS: 1. Titrate levophed to MAP > 65 mm Hg 2. Intravenous antibiotics; de-escalate pending cultures 3. Continue antiepileptics per Neuro 4. Minimize sedation; continue to follow neuro exam 5. DVT and GI prophylaxis Long discussion with family at bedside today. Family have declined tracheostomy and PEG tube. Goal is to attempt extubation if she is not successfully extubated family will transition to comfort measures. Either way post extubation patient should be evaluated by inpatient hospice team. JODI MOY MD, [facility] Sep 28, 2018 11:23
--- NOTE | 2018-09-28 11:59 | CONS ---
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 She was additionally reported to have a seizure... for which neurology is co nsulted. Most clinically consistent with new onset epilepsy. Initial EEG was notable for GPEDs and an electrographic seizure originating in the R temporal region.. s/p Dilantin load, with ongoing episodic staring spells (presumed seizures) noted clinically.. s/p Phenobarbital load on 09/18..with resolution of episodes suspicious for seizure P: Await repeat phb level, to ensure clearance from system Continue Keppra bid for now; 250mg.. Limit other sedating medications where possible Other medical management per primary Will follow clinically Consultation Date/Type/Reason Admit Date/Time Sep 16, 2018 at 22:12 Type of Consult Neurology Reason for Consultation new onset seizures Requesting Provider: ANGELLA PERRIN Date/Time of Note DATE: 09/28/18 TIME: 11:59 24 HR Interval Summary Free Text/Dictation Continues critical care. Tolerating spontaneous breathing trial. There are discussions about possible terminal extubation this weekend. Awaiting phb level. Subjective hx not possible: pt non-verbal, pt critical Exam Vital Signs Vitals Vital Signs Date Temp Pulse Resp B/P (MAP) Pulse Ox O2 O2 Flow FiO2 Time Delivery Rate 09/28/18 74 17 105/70 100 Mechanical 11:00 (82) Ventilator 09/28/18 30 09:40 09/28/18 98.8 08:00 Intake and Output 09/27/18 09/27/18 09/28/18 1515:00 23:00 07:00 IntakeIntake Total 572.5 ml 572.5 ml 470 ml OutputOutput Total 500 ml 915 ml 450 ml BalanceBalance 72.5 ml -342.5 ml 20 ml Exam PE: Gen Appearance: No Apparent Distress HEENT: Intubated Cardiovascular: Regular rate Abdomen: Soft Extremities: Dry NE: The patient was obtunded and nonverbal. Did not track or follow commands. Cranial nerve examination was limited by mental status. Pupils were equal and reactive to light. There was no afferent pupillary defect. Funduscopic examination was limited. Face was grossly symmetric, w/ present corneal and cough reflexes. Tone was spastic in BUE. Muscle bulk was reduced. I did not see fasciculations. The patient withdrew to noxious stimulation x 4. Coordination and gait testing was limited by mental status. Arm and leg reflexes were within normal limits and symmetric. Hudson's sign was absent. Plantar responses were flexor. SWEETIE NATARAJAN NP Sep 28, 2018 11:59
--- NOTE | 2018-09-28 12:33 | PN ---
Date/Time of Note Date/Time of Note DATE: 09/28/18 TIME: 12:31 Assessment/Plan VTE Prophylaxis Risk score (from Nsg)>0 risk: 6 SCD applied (from Ns): Yes Pharmacological prophylaxis: heparin Lines/Catheters IV Catheter Type (from Nrs): PICC Line Central line still needed: Yes Urinary Cath still in place: Yes Reason Cath still needed: other (indicate) Assessment/Plan Hospital Course SUBJECTIVE: On CPAP trial. OBJECTIVE: Physical Exam General: Thin, frail looking 58 year-old female lying in bed in no apparent distress. HEENT: Normocephalic, atraumatic. Eyes: Anicteric sclerae, conjunctivae clear. ENT: Nasal septum id midline, oral mucosa id dry. Respiratory: Bilaterally diminished breath sounds. ETT to mechanical ventilator. Cardiovascular: S1, S2 heard. Regular rate and rhythm. Abdomen: Soft, nontender, and nondistended. Bowel sounds positive in all 4 quadrants. Genitourinary: Deferred. Extremities: No cyanosis, no clubbing. Trace bilateral pedal edema. Neurologic: Encephalopathic. Labs & Vitals per chart ASSESSMENT & PLAN 58-year-old female with past medical history of hypertension, dyslipidemia with significant dementia. The patient is chronically bedridden and nonverbal being taken care for at home by her . The patient was brought to an outside hospital ER because of altered mental status. The patient was brought to [facility] for further evaluation because of insurance reasons. The patient developed status epilepticus refractory to conventional medications that required starting the patient on phenobarbital after intubating the patient. 1. Intractable seizure requiring intubation for airway protection. -Continue Keppra. -Status post phenobarbital. 2. Sepsis with septic shock secondary to aspiration pneumonia. -Sputum culture positive for pseudomonas aeruginosa. -Continue antimicrobials as per ID. 3. Positive HSV 1 IgG. -IgM pending. 4. Positive VZV IgG. -IgM negative. 5. Dyslipidemia. -Fasting lipid panel satisfactory. 6. History of hypertension. -Currently hypotensive. 7. Chronic dementia. -The patient currently is a chemical code only. 8. Fluids, electrolytes, and nutrition. -Continue NGT feedings. 9. DVT prophylaxis. -Bilateral SCDs. -SQ heparin. 10. Plan. -Ventilator weaning as per pulmonary. -Await clinical improvement. The patient was seen in collaboration with Dr. Hicks. Critical care time: 35 minutes. Result Diagram: 09/28/18 0415 09/28/18 0415 Results 24hrs Laboratory Tests Test 09/27/18 18:02 09/27/18 23:11 09/28/18 04:15 09/28/18 09:17 Creatine Kinase < 20 L < 20 L < 20 L Creatine Kinase Index Creatinine 1.00 0.86 1.02 Kinase MB (Mass) Troponin I 0.075 0.091 0.084 White Blood 12.1 H Count Red Blood Count 2.73 L Hemoglobin 8.5 L Hematocrit 25.0 L Mean Corpuscular 91.6 Volume Mean Corpuscular 31.1 Hemoglobin Mean Corpuscular 34.0 Hemoglobin Pepper nt Red Cell 12.6 Distribution Width Platelet Count 352 # Mean Platelet 9.9 Volume Immature 0.800 H Granulocytes % Neutrophils % 76.4 Lymphocytes % 11.3 L Monocytes % 8.7 Eosinophils % 2.5 Basophils % 0.3 Nucleated Red 0.0 Blood Cells % Immature 0.100 H Granulocytes # Neutrophils # 9.3 H Lymphocytes # 1.4 Monocytes # 1.1 H Eosinophils # 0.3 Basophils # 0.0 Nucleated Red 0.0 Blood Cells # Sodium Level 128 L Potassium Level 4.6 Chloride Level 93 L Carbon Dioxide 30 Level Anion Gap 5 Blood Urea 12 Nitrogen Creatinine 0.42 L Est Glomerular > 60 Filtrat Rate mL/min Glucose Level 133 Calcium Level 8.2 L Phosphorus Level 4.8 Magnesium Level 2.0 Total Bilirubin 0.0 L Direct Bilirubin 0.00 Indirect 0.0 Bilirubin Aspartate Amino 25 Transf (AST/SGOT ) Alanine 31 Aminotransferase (ALT/SGPT) Alkaline 34 L Phosphatase Total Protein 4.4 L Albumin 2.2 L Globulin 2.20 Albumin/Globulin 1.00 Ratio Lab Scanned REFERENCE LAB Report Test 09/28/18 11:45 Blood Gas Blood arterial Specimen Source Arterial Blood 09/28/2018 11:43 Date Drawn :01 AM Arterial Blood 7.501 H pH (Temp corrected) Arterial Blood 36.2 pCO2 (Temp correct) Arterial Blood 145.4 H pO2 (Temp corrected) Arterial Blood 27.7 H HCO3 Arterial Blood 4.3 H Base Excess Arterial Blood 98.8 H Oxygen Saturatio n Tino Test ACCEPTAB Arterial Blood Right Radial Gas Puncture Site Arterial 0.3 Blood Carboxyhem oglobin Arterial Blood 0.4 Methemoglobin Blood Gas A-a O2 26.0 H Differential Oxyhemoglobin 98.1 Percent Blood Gas 37.0 Temperature Blood Gas VENT - CPAP Modality FiO2 30.0 Blood Gas Low 5.0 PEEP Setting Blood Gas 10 Pressure Support Blood Gas TM Notified Whom Blood Gas 09/28/2018 11:51 Notified Time :43 AM Exam/Review of Systems Exam Vitals Vital Signs Date Temp Pulse Resp B/P (MAP) Pulse Ox O2 O2 Flow FiO2 Time Delivery Rate 09/28/18 74 17 105/70 100 Mechanical 11:00 (82) Ventilator 09/28/18 30 09:40 09/28/18 98.8 08:00 Intake and Output 09/27/18 09/27/18 09/28/18 1515:00 23:00 07:00 IntakeIntake Total 572.5 ml 572.5 ml 470 ml OutputOutput Total 500 ml 915 ml 450 ml BalanceBalance 72.5 ml -342.5 ml 20 ml Results Results 24hrs Laboratory Tests Test 09/27/18 18:02 09/27/18 23:11 09/28/18 04:15 09/28/18 09:17 Creatine Kinase < 20 L < 20 L < 20 L Creatine Kinase Index Creatinine 1.00 0.86 1.02 Kinase MB (Mass) Troponin I 0.075 0.091 0.084 White Blood 12.1 H Count Red Blood Count 2.73 L Hemoglobin 8.5 L Hematocrit 25.0 L Mean Corpuscular 91.6 Volume Mean Corpuscular 31.1 Hemoglobin Mean Corpuscular 34.0 Hemoglobin Pepper nt Red Cell 12.6 Distribution Width Platelet Count 352 # Mean Platelet 9.9 Volume Immature 0.800 H Granulocytes % Neutrophils % 76.4 Lymphocytes % 11.3 L Monocytes % 8.7 Eosinophils % 2.5 Basophils % 0.3 Nucleated Red 0.0 Blood Cells % Immature 0.100 H Granulocytes # Neutrophils # 9.3 H Lymphocytes # 1.4 Monocytes # 1.1 H Eosinophils # 0.3 Basophils # 0.0 Nucleated Red 0.0 Blood Cells # Sodium Level 128 L Potassium Level 4.6 Chloride Level 93 L Carbon Dioxide 30 Level Anion Gap 5 Blood Urea 12 Nitrogen Creatinine 0.42 L Est Glomerular > 60 Filtrat Rate mL/min Glucose Level 133 Calcium Level 8.2 L Phosphorus Level 4.8 Magnesium Level 2.0 Total Bilirubin 0.0 L Direct Bilirubin 0.00 Indirect 0.0 Bilirubin Aspartate Amino 25 Transf (AST/SGOT ) Alanine 31 Aminotransferase (ALT/SGPT) Alkaline 34 L Phosphatase Total Protein 4.4 L Albumin 2.2 L Globulin 2.20 Albumin/Globulin 1.00 Ratio Lab Scanned REFERENCE LAB Report Test 09/28/18 11:45 Blood Gas Blood arterial Specimen Source Arterial Blood 09/28/2018 11:43 Date Drawn :01 AM Arterial Blood 7.501 H pH (Temp corrected) Arterial Blood 36.2 pCO2 (Temp correct) Arterial Blood 145.4 H pO2 (Temp corrected) Arterial Blood 27.7 H HCO3 Arterial Blood 4.3 H Base Excess Arterial Blood 98.8 H Oxygen Saturatio n Tino Test ACCEPTAB Arterial Blood Right Radial Gas Puncture Site Arterial 0.3 Blood Carboxyhem oglobin Arterial Blood 0.4 Methemoglobin Blood Gas A-a O2 26.0 H Differential Oxyhemoglobin 98.1 Percent Blood Gas 37.0 Temperature Blood Gas VENT - CPAP Modality FiO2 30.0 Blood Gas Low 5.0 PEEP Setting Blood Gas 10 Pressure Support Blood Gas TM Notified Whom Blood Gas 09/28/2018 11:51 Notified Time :43 AM Medications Medication Current Medications IV Flush (NS 3 ml) 3 ml PER PROTOCOL IV ; Start 09/17/18 at 03:30 Ondansetron HCl (Zofran Inj) 4 mg Q6H PRN IV NAUSEA/VOMITING; Start 09/17/18 at 03:30 Acetaminophen (Tylenol Tab) 650 mg Q6H PRN PO .PAIN 1-3 OR TEMP; Start 09/17/18 at 03:30 Docusate Sodium (Colace) 100 mg Q12H PRN PO .CONSTIPATION; Start 09/17/18 at 03:30 Magnesium Hydroxide (Milk Of Mag) 30 ml DAILY PRN PO .CONSTIPATION; Start 09/17/18 at 03:30 Heparin Sodium (Porcine) (Heparin (5000 Units/1ml)) 5,000 unit Q12 SC Last administered on 09/28/18at 09:43; Admin Dose 5,000 UNIT; Start 09/17/18 at 09:00 Albuterol/ Ipratropium (Duoneb) 3 ml Q4H RESP THERAPY PRN HHN SHORTNESS OF BREATH; Start 09/17/18 at 03:30 Hydralazine HCl (Apresoline) 10 mg Q6H PRN IV ELEVATED BLOOD PRESSURE; Start 09/17/18 at 03:30 Nitroglycerin (Nitroglycerin (Sl Tab) 0.4 Mg) 1 tab Q5M PRN SL ANGINA; Start 09/17/18 at 03:30 Lorazepam (Ativan) 1 mg Q2H PRN IV SEIZURES Last administered on 09/17/18at 03:57; Admin Dose 1 MG; Start 09/17/18 at 03:30 Miscellaneous Information (Pending Santyl Order For Wound Care) This patient goel... PRN PRN XX WOUND CARE; Start 09/17/18 at 05:00 Propofol 100 ml @ 1.227 mls/ hr Q12H IV ; Start 09/18/18 at 21:00 Collagenase (Santyl) 1 applic DAILY TOP Last administered on 09/28/18at 09:25; Admin Dose 1 APPLIC; Start 09/19/18 at 11:30 IV Flush (NS 10 ml) 10 ml PRN PRN IV IV PROTOCOL; Start 09/19/18 at 15:00 Cefepime HCl 50 ml @ 100 mls/hr Q12 IVPB Last administered on 09/28/18 09:25; Admin Dose 100 MLS/HR; Start 09/21/18 at 13:00 Levetiracetam 250 mg/Dextrose 102.5 ml @ 430 mls/hr Q12 IVPB Last administered on 09/28/18 09:25; Admin Dose 430 MLS/HR; Start 09/24/18 at 21:00 Lansoprazole (Prevacid) 30 mg DAILY@06 PO Last administered on 09/28/18at 05:15; Admin Dose 30 MG; Start 09/25/18 at 06:00 Norepinephrine 250 ml @ 1.875 mls/ hr TITRATE IV ; Start 09/26/18 at 10:30 WAYNE MACKENZIE NP Sep 28, 2018 12:33
--- NOTE | 2018-09-28 12:51 | CONS ---
Assessment/Plan Assessment/Plan Hospital Course (Demo Recall) No acute events overnight patient looks comfortable off pressors no fevers overnight WBC 12.1 platelets 352 neutrophils 76.4 BUN 12 creatinine 0.42 Antimicrobials: Cefepime #8 Microbiology: Urine culture grew Streptococcus, sputum culture + pseudomonas aeruginosa Indwelling: Endotracheal tube, orogastric tube Prince catheter left upper extremity PICC line Physical examination: Well-developed chronically ill-appearing middle-aged woman who is intubated in no distress. Head atraumatic normocephalic. Sclera nonicteric. Neck is supple. Chest rise symmetrical, breath sounds diminished bases. Heart: S1-S2. Abdomen soft bowel sounds present, hypoactive. Extremities cyanotic with trace edema Assessment: 1. Resolving sepsis, s/p shock 2. Gram-positive cocci bacteremia cw contaminant 3. Respiratory failure/PNA 4. 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 Acute on chronic encephalopathy 6. Status post urinary tract infection Plan: Remains stable off pressors, continue present care, antibiotics, neurology/pulmonary recommendations, family to decide regarding plan of care Consultation Date/Type/Reason Admit Date/Time Sep 16, 2018 at 22:12 Initial Consult Date 09/18/18 Type of Consult id Requesting Provider: ANGELLA PERRIN Date/Time of Note DATE: 09/28/18 TIME: 12:50 Exam/Review of Systems Exam Vitals Vital Signs Date Temp Pulse Resp B/P (MAP) Pulse Ox O2 O2 Flow FiO2 Time Delivery Rate 09/28/18 74 17 105/70 100 Mechanical 11:00 (82) Ventilator 09/28/18 30 09:40 09/28/18 98.8 08:00 Intake and Output 09/27/18 09/27/18 09/28/18 1414:59 22:59 06:59 IntakeIntake Total 672.5 ml 572.5 ml 470 ml OutputOutput Total 625 ml 865 ml 550 ml BalanceBalance 47.5 ml -292.5 ml -80 ml Results Result Diagram: 09/28/18 0415 09/28/18 0415 Results 24hrs Laboratory Tests Test 09/27/18 18:02 09/27/18 23:11 09/28/18 04:15 09/28/18 09:17 Creatine Kinase < 20 L < 20 L < 20 L Creatine Kinase Index Creatinine 1.00 0.86 1.02 Kinase MB (Mass) Troponin I 0.075 0.091 0.084 White Blood 12.1 H Count Red Blood Count 2.73 L Hemoglobin 8.5 L Hematocrit 25.0 L Mean Corpuscular 91.6 Volume Mean Corpuscular 31.1 Hemoglobin Mean Corpuscular 34.0 Hemoglobin Pepper nt Red Cell 12.6 Distribution Width Platelet Count 352 # Mean Platelet 9.9 Volume Immature 0.800 H Granulocytes % Neutrophils % 76.4 Lymphocytes % 11.3 L Monocytes % 8.7 Eosinophils % 2.5 Basophils % 0.3 Nucleated Red 0.0 Blood Cells % Immature 0.100 H Granulocytes # Neutrophils # 9.3 H Lymphocytes # 1.4 Monocytes # 1.1 H Eosinophils # 0.3 Basophils # 0.0 Nucleated Red 0.0 Blood Cells # Sodium Level 128 L Potassium Level 4.6 Chloride Level 93 L Carbon Dioxide 30 Level Anion Gap 5 Blood Urea 12 Nitrogen Creatinine 0.42 L Est Glomerular > 60 Filtrat Rate mL/min Glucose Level 133 Calcium Level 8.2 L Phosphorus Level 4.8 Magnesium Level 2.0 Total Bilirubin 0.0 L Direct Bilirubin 0.00 Indirect 0.0 Bilirubin Aspartate Amino 25 Transf (AST/SGOT ) Alanine 31 Aminotransferase (ALT/SGPT) Alkaline 34 L Phosphatase Total Protein 4.4 L Albumin 2.2 L Globulin 2.20 Albumin/Globulin 1.00 Ratio Lab Scanned REFERENCE LAB Report Test 09/28/18 11:45 Blood Gas Blood arterial Specimen Source Arterial Blood 09/28/2018 11:43 Date Drawn :01 AM Arterial Blood 7.501 H pH (Temp corrected) Arterial Blood 36.2 pCO2 (Temp correct) Arterial Blood 145.4 H pO2 (Temp corrected) Arterial Blood 27.7 H HCO3 Arterial Blood 4.3 H Base Excess Arterial Blood 98.8 H Oxygen Saturatio n Tino Test ACCEPTAB Arterial Blood Right Radial Gas Puncture Site Arterial 0.3 Blood Carboxyhem oglobin Arterial Blood 0.4 Methemoglobin Blood Gas A-a O2 26.0 H Differential Oxyhemoglobin 98.1 Percent Blood Gas 37.0 Temperature Blood Gas VENT - CPAP Modality FiO2 30.0 Blood Gas Low 5.0 PEEP Setting Blood Gas 10 Pressure Support Blood Gas TM Notified Whom Blood Gas 09/28/2018 11:51 Notified Time :43 AM Medications Medication Current Medications IV Flush (NS 3 ml) 3 ml PER PROTOCOL IV ; Start 09/17/18 at 03:30 Ondansetron HCl (Zofran Inj) 4 mg Q6H PRN IV NAUSEA/VOMITING; Start 09/17/18 at 03:30 Acetaminophen (Tylenol Tab) 650 mg Q6H PRN PO .PAIN 1-3 OR TEMP; Start 09/17/18 at 03:30 Docusate Sodium (Colace) 100 mg Q12H PRN PO .CONSTIPATION; Start 09/17/18 at 03:30 Magnesium Hydroxide (Milk Of Mag) 30 ml DAILY PRN PO .CONSTIPATION; Start 09/17/18 at 03:30 Heparin Sodium (Porcine) (Heparin (5000 Units/1ml)) 5,000 unit Q12 SC Last administered on 09/28/18at 09:43; Admin Dose 5,000 UNIT; Start 09/17/18 at 09:00 Albuterol/ Ipratropium (Duoneb) 3 ml Q4H RESP THERAPY PRN HHN SHORTNESS OF BREATH; Start 09/17/18 at 03:30 Hydralazine HCl (Apresoline) 10 mg Q6H PRN IV ELEVATED BLOOD PRESSURE; Start 09/17/18 at 03:30 Nitroglycerin (Nitroglycerin (Sl Tab) 0.4 Mg) 1 tab Q5M PRN SL ANGINA; Start 09/17/18 at 03:30 Lorazepam (Ativan) 1 mg Q2H PRN IV SEIZURES Last administered on 09/17/18at 03:57; Admin Dose 1 MG; Start 09/17/18 at 03:30 Miscellaneous Information (Pending Santyl Order For Wound Care) This patient goel... PRN PRN XX WOUND CARE; Start 09/17/18 at 05:00 Propofol 100 ml @ 1.227 mls/ hr Q12H IV ; Start 09/18/18 at 21:00 Collagenase (Santyl) 1 applic DAILY TOP Last administered on 09/28/18at 09:25; Admin Dose 1 APPLIC; Start 09/19/18 at 11:30 IV Flush (NS 10 ml) 10 ml PRN PRN IV IV PROTOCOL; Start 09/19/18 at 15:00 Cefepime HCl 50 ml @ 100 mls/hr Q12 IVPB Last administered on 09/28/18at 09:25; Admin Dose 100 MLS/HR; Start 09/21/18 at 13:00 Levetiracetam 250 mg/Dextrose 102.5 ml @ 430 mls/hr Q12 IVPB Last administered on 09/28/18at 09:25; Admin Dose 430 MLS/HR; Start 09/24/18 at 21:00 Lansoprazole (Prevacid) 30 mg DAILY@06 PO Last administered on 09/28/18at 05:15; Admin Dose 30 MG; Start 09/25/18 at 06:00 Norepinephrine 250 ml @ 1.875 mls/ hr TITRATE IV ; Start 09/26/18 at 10:30 ZHANE TERAN NP Sep 28, 2018 12:51
--- NOTE | 2018-09-28 13:50 | RADRPT ---
Echocardiogram Report Patient Name: NATHAN TAMEZPatient ID: [id number] : 1960 (58y 2m)Study Date: 09/28/2018 7:21:06 AM Gender: FAccession #: [id number] Tech: Davion Broussard [facility] Location: [facility] Ref.Physician: DYLAN RAMOS Height(Cm): BSA: Weight(Kg): Quality: AdequateAccount #: Procedures: Echocardiographic Report: Transthoracic echocardiogram with complete 2D, M-Mode, and doppler examination. Indications: Arrythmia. Measurements: 2D/M Mode Doppler Measurement Value Normal Range Measurement Value Normal Range LVIDd 2D 4.2 [ 3.8 - 5.2 ] cm AV Peak Santos 1.4 [ 100.0 - 170.0 ] cm/se c LVIDs 2D 2.7 [ 2.2 - 3.5 ] cm AV Peak PG 7.0 [ 2.0 - 9.0 ] mmHg LVPWd 2D 1.1 [ 0.6 - 0.9 ] cm AI Peak PG 52.0 mmHg IVSd 2D 1.0 [ 0.6 - 0.9 ] cm AI Peak Santos 3.6 cm/sec AoR Diam 2D 2.8 [ 2.3 - 3.1 ] cm AI PHT 561.0 msec EDV 2D 77.7 [ 46.0 - 106.0 ] ml LVOT Peak Santos 1.0 [ 70.0 - 110.0 ] cm/sec ESV 2D 25.8 [ 14.0 - 42.0 ] ml LVOT Peak PG 4.0 [ 2.0 - 6.0 ] mmHg EF 2D 66.8 [ 54.0 - 74.0 ] percent MV E Peak Santos 0.6 [ 60.0 - 130.0 ] cm/sec LA Dimen 2D 2.6 [ 2.7 - 3.8 ] cm MV A Peak Santos 0.6 [ 100.0 - 120.0 ] cm/se c MV E/A 0.9 [ 0.8 - 1.5 ] ratio MV PHT 108.0 [ 20.0 - 100.0 ] msec MV Decel Time 169 [ 104 - 258 ] msec MV Decel Florence 1 Lat E` Santos 0.1 [ 10.0 - 15.0 ] cm/sec Lateral E/E` 7.8 [ 1.0 - 2.0 ] ratio MV E/A 0.9 [ 0.8 - 1.5 ] ratio MVA PHT 2.0 [ 2.0 - 4.0 ] cm2 Findings: Left Ventricle: Normal left ventricular systolic function. Normal left ventricular cavity size. Mild concentric left ventricular hypertrophy. Ejection fraction is visually estimated at 65 %. Tissue Doppler/Mitral Doppler indices are consistent with impaired relaxation (Stage I diastolic dysfunction). Right Ventricle: Normal right ventricular size. Normal right ventricular systolic function. Left Atrium: The left atrium is normal in size. Right Atrium: The right atrium is normal in size. Mitral Valve: Normal appearance and function of the mitral valve with trace physiologic regurgitation. Aortic Valve: No significant aortic stenosis or insufficiency. Aortic cusps appear mildly calcified. Tricuspid Valve: Normal appearance of the tricuspid valve. Unable to obtain RVSP due to minimal presence of tricuspid regurgitation. Pulmonic Valve: Normal pulmonic valve appearance. Pericardium: Normal pericardium with no significant pericardial effusion. Aorta: Normal aortic root. IVC: Inferior vena cava without respiratory collapse, however, patient on ventilator. Conclusions: Normal left ventricular systolic function. Normal left ventricular cavity size. Mild concentric left ventricular hypertrophy. Ejection fraction is visually estimated at 65 %. Tissue Doppler/Mitral Doppler indices are consistent with impaired relaxation (Stage I diastolic dysfunction). Inferior vena cava without respiratory collapse, however, patient on ventilator. Electronically Signed By: Cal Harry 2018-09-28 13:50:20 PST
[2018-09-29] VITALS (24 sets, daily range): BP systolic 82–124; BP diastolic 49–93; PULSE 63–79; RESP 0–19
[2018-09-29] MEDS: BALSAM PERU/CASTOR OIL 60 GM TUBE TOP SCH ×2 (03:41→09:00)
[2018-09-29] MEDS: LANSOPRAZOLE 30 MG CAP PO SCH (05:30)
[2018-09-29] MEDS: COLLAGENASE 5 GM (UD JAR) TOP SCH (09:00)
[2018-09-29] MEDS: CEFEPIME 1GM/50 ML (PMX) 50 ML IVPB SCH (09:00)
[2018-09-29] MEDS: PROPOFOL 100 ML IV SCH (09:00)
[2018-09-29] MEDS: HEPARIN 5,000 UNIT/1 ML VIAL SC SCH (09:00)
--- NOTE | 2018-09-29 09:25 | CONS ---
Assessment/Plan Assessment/Plan Assessment/Plan (Daily) Discussed ongoing level of care with the patient's has been on September 28, 2018. It is his opinion that patient has no quality of life and he does not want to have G-tube was placed for patient to remain on artificial life support including artificial nutrition or ventilation if there is no chance that she will significantly recovered. It is own words he felt that she has suffered enough. Patient's was given options for ongoing level of care and he has decided to discontinue artificial ventilation as long as this is clearly evident that patient will not breathe on her own without backup ventilator support. Today Dr. Islas will begin weaning patient once again. Follow-up note after weaning trial today. Close contact with family members will be done. Consultation Date/Type/Reason Admit Date/Time Sep 16, 2018 at 22:12 Date/Time of Note DATE: 09/29/18 TIME: 09:18 Past Medical History Home Meds Reported Medications Cyanocobalamin* (Vitamin B-12*) 50 Mcg Tablet, 50 MCG PO DAILY, TAB 09/17/18 Amlodipine Besylate* (Amlodipine Besylate*) 2.5 Mg Tablet, 5 MG PO DAILY, #30 TAB 09/17/18 Risperidone* (Risperidone*) 0.5 Mg Tablet, 0.5 MG PO DAILY, TAB 09/17/18 Lamotrigine* (Lamotrigine*) 25 Mg Tablet, 25 MG PO DAILY, TAB 09/17/18 Benztropine Mesylate* (Benztropine Mesylate*) 2 Mg Tablet, 2 MG PO BID, TAB 09/17/18 Medications Current Medications IV Flush (NS 3 ml) 3 ml PER PROTOCOL IV ; Start 09/17/18 at 03:30 Ondansetron HCl (Zofran Inj) 4 mg Q6H PRN IV NAUSEA/VOMITING; Start 09/17/18 at 03:30 Acetaminophen (Tylenol Tab) 650 mg Q6H PRN PO .PAIN 1-3 OR TEMP; Start 09/17/18 at 03:30 Docusate Sodium (Colace) 100 mg Q12H PRN PO .CONSTIPATION; Start 09/17/18 at 0 3:30 Magnesium Hydroxide (Milk Of Mag) 30 ml DAILY PRN PO .CONSTIPATION; Start 09/17/18 at 03:30 Heparin Sodium (Porcine) (Heparin (5000 Units/1ml)) 5,000 unit Q12 SC Last administered on 09/28/18at 20:55; Admin Dose 5,000 UNIT; Start 09/17/18 at 09:00 Albuterol/ Ipratropium (Duoneb) 3 ml Q4H RESP THERAPY PRN HHN SHORTNESS OF BREATH; Start 09/17/18 at 03:30 Hydralazine HCl (Apresoline) 10 mg Q6H PRN IV ELEVATED BLOOD PRESSURE; Start 09/17/18 at 03:30 Nitroglycerin (Nitroglycerin (Sl Tab) 0.4 Mg) 1 tab Q5M PRN SL ANGINA; Start 09/17/18 at 03:30 Lorazepam (Ativan) 1 mg Q2H PRN IV SEIZURES Last administered on 09/17/18at 03:57; Admin Dose 1 MG; Start 09/17/18 at 03:30 Miscellaneous Information (Pending Santyl Order For Wound Care) This patient goel... PRN PRN XX WOUND CARE; Start 09/17/18 at 05:00 Propofol 100 ml @ 1.227 mls/ hr Q12H IV ; Start 09/18/18 at 21:00 Collagenase (Santyl) 1 applic DAILY TOP Last administered on 09/28/18at 09:25; Admin Dose 1 APPLIC; Start 09/19/18 at 11:30 IV Flush (NS 10 ml) 10 ml PRN PRN IV IV PROTOCOL; Start 09/19/18 at 15:00 Cefepime HCl 50 ml @ 100 mls/hr Q12 IVPB Last administered on 09/28/18at 20:54; Admin Dose 100 MLS/HR; Start 09/21/18 at 13:00 Levetiracetam 250 mg/Dextrose 102.5 ml @ 430 mls/hr Q12 IVPB Last administered on 09/28/18at 20:54; Admin Dose 430 MLS/HR; Start 09/24/18 at 21:00 Lansoprazole (Prevacid) 30 mg DAILY@06 PO Last administered on 09/29/18at 05:30; Admin Dose 30 MG; Start 09/25/18 at 06:00 Norepinephrine 250 ml @ 1.875 mls/ hr TITRATE IV ; Start 09/26/18 at 10:30 Allergies: Coded Allergies: No Known Allergy (Unverified , 09/17/18) Past Surgical History Past Surgical Hx: other Social History Alcohol Use: none Smoking Status: Never smoker Drug Use: none Exam/Review of Systems Exam Vitals Vital Signs Date Temp Pulse Resp B/P (MAP) Pulse Ox O2 O2 Flow FiO2 Time Delivery Rate 09/29/18 70 14 100 30 05:10 09/29/18 115/73 Mechanical 05:00 (87) Ventilator 09/29/18 98.6 04:00 Intake and Output 09/28/18 09/28/18 09/29/18 1515:00 23:00 07:00 IntakeIntake Total 472.5 ml 350 ml 120 ml OutputOutput Total 475 ml 435 ml 175 ml BalanceBalance -2.5 ml -85 ml -55 ml Results Result Diagram: 09/29/18 0450 09/29/18 0450 Results 24hrs Laboratory Tests Test 09/28/18 11:45 09/29/18 04:50 Blood Gas Specimen Source Blood arterial Arterial Blood Date Drawn 09/28/2018 11:43:01 AM Arterial Blood pH (Temp corrected) 7.501 H Arterial Blood pCO2 (Temp correct) 36.2 Arterial Blood pO2 (Temp corrected) 145.4 H Arterial Blood HCO3 27.7 H Arterial Blood Base Excess 4.3 H Arterial Blood Oxygen Saturation 98.8 H Tino Test ACCEPTAB Arterial Blood Gas Puncture Site Right Radial Arterial Blood Carboxyhemoglobin 0.3 Arterial Blood Methemoglobin 0.4 Blood Gas A-a O2 Differential 26.0 H Oxyhemoglobin Percent 98.1 Blood Gas Temperature 37.0 Blood Gas Modality VENT - CPAP FiO2 30.0 Blood Gas Low PEEP Setting 5.0 Blood Gas Pressure Support 10 Blood Gas Notified Whom TM Blood Gas Notified Time 09/28/2018 11:51:43 AM White Blood Count 12.5 H Red Blood Count 2.50 L Hemoglobin 7.9 L Hematocrit 23.1 L Mean Corpuscular Volume 92.4 Mean Corpuscular Hemoglobin 31.6 Mean Corpuscular Hemoglobin Concent 34.2 Red Cell Distribution Width 12.6 Platelet Count 343 Mean Platelet Volume 9.6 Immature Granulocytes % 1.000 H Neutrophils % 78.3 H Lymphocytes % 9.9 L Monocytes % 8.5 Eosinophils % 1.8 Basophils % 0.5 Nucleated Red Blood Cells % 0.0 Immature Granulocytes # 0.130 H Neutrophils # 9.8 H Lymphocytes # 1.2 Monocytes # 1.1 H Eosinophils # 0.2 Basophils # 0.1 Nucleated Red Blood Cells # 0.0 Sodium Level 129 L Potassium Level 4.5 Chloride Level 96 L Carbon Dioxide Level 28 Anion Gap 5 Blood Urea Nitrogen 12 Creatinine 0.40 L Est Glomerular Filtrat Rate mL/min > 60 Glucose Level 117 Calcium Level 8.3 L Total Bilirubin 0.0 L Direct Bilirubin 0.00 Indirect Bilirubin 0.0 Aspartate Amino Transf (AST/SGOT) 23 Alanine Aminotransferase (ALT/SGPT) 26 Alkaline Phosphatase 31 L Total Protein 5.1 L Albumin 2.5 L Globulin 2.60 Albumin/Globulin Ratio 0.96 Medications Medication Current Medications IV Flush (NS 3 ml) 3 ml PER PROTOCOL IV ; Start 09/17/18 at 03:30 Ondansetron HCl (Zofran Inj) 4 mg Q6H PRN IV NAUSEA/VOMITING; Start 09/17/18 at 03:30 Acetaminophen (Tylenol Tab) 650 mg Q6H PRN PO .PAIN 1-3 OR TEMP; Start 09/17/18 at 03:30 Docusate Sodium (Colace) 100 mg Q12H PRN PO .CONSTIPATION; Start 09/17/18 at 03:30 Magnesium Hydroxide (Milk Of Mag) 30 ml DAILY PRN PO .CONSTIPATION; Start 09/17/18 at 03:30 Heparin Sodium (Porcine) (Heparin (5000 Units/1ml)) 5,000 unit Q12 SC Last administered on 09/28/18at 20:55; Admin Dose 5,000 UNIT; Start 09/17/18 at 09:00 Albuterol/ Ipratropium (Duoneb) 3 ml Q4H RESP THERAPY PRN HHN SHORTNESS OF BREATH; Start 09/17/18 at 03:30 Hydralazine HCl (Apresoline) 10 mg Q6H PRN IV ELEVATED BLOOD PRESSURE; Start 09/17/18 at 03:30 Nitroglycerin (Nitroglycerin (Sl Tab) 0.4 Mg) 1 tab Q5M PRN SL ANGINA; Start 09/17/18 at 03:30 Lorazepam (Ativan) 1 mg Q2H PRN IV SEIZURES Last administered on 09/17/18at 03:57; Admin Dose 1 MG; Start 09/17/18 at 03:30 Miscellaneous Information (Pending Santyl Order For Wound Care) This patient goel... PRN PRN XX WOUND CARE; Start 09/17/18 at 05:00 Propofol 100 ml @ 1.227 mls/ hr Q12H IV ; Start 09/18/18 at 21:00 Collagenase (Santyl) 1 applic DAILY TOP Last administered on 09/28/18at 09:25; Admin Dose 1 APPLIC; Start 09/19/18 at 11:30 IV Flush (NS 10 ml) 10 ml PRN PRN IV IV PROTOCOL; Start 09/19/18 at 15:00 Cefepime HCl 50 ml @ 100 mls/hr Q12 IVPB Last administered on 09/28/18at 20:54; Admin Dose 100 MLS/HR; Start 09/21/18 at 13:00 Levetiracetam 250 mg/Dextrose 102.5 ml @ 430 mls/hr Q12 IVPB Last administered on 09/28/18at 20:54; Admin Dose 430 MLS/HR; Start 09/24/18 at 21:00 Lansoprazole (Prevacid) 30 mg DAILY@06 PO Last administered on 09/29/18at 05:30; Admin Dose 30 MG; Start 09/25/18 at 06:00 Norepinephrine 250 ml @ 1.875 mls/ hr TITRATE IV ; Start 09/26/18 at 10:30 SWATI COBB Sep 29, 2018 09:25
--- NOTE | 2018-09-29 10:02 | CONS ---
Consult Date/Type/Reason Admit Date/Time Sep 16, 2018 at 22:12 Initial Consult Date 09/18/18 Type of Consult Pulmonary Requesting Provider: ANGELLA PERRIN Date/Time of Note DATE: 09/29/18 TIME: 10:00 Subjective Patient remains largely somnolent on mechanical ventilation. Occasionally opens eyes but not following commands. Objective Vital Signs Date Temp Pulse Resp B/P (MAP) Pulse Ox O2 O2 Flow FiO2 Time Delivery Rate 09/29/18 70 14 100 30 05:10 09/29/18 115/73 Mechanical 05:00 (87) Ventilator 09/29/18 98.6 04:00 Intake and Output 09/28/18 09/28/18 09/29/18 1414:59 22:59 06:59 IntakeIntake Total 472.5 ml 350 ml 160 ml OutputOutput Total 475 ml 385 ml 225 ml BalanceBalance -2.5 ml -35 ml -65 ml Exam GENERAL: Chronically ill-appearing lady on mechanical ventilation VITAL SIGNS: per chart NECK: Supple. No JVD or lymphadenopathy. CARDIAC EXAM: S1, S2. No added sounds or murmurs. CHEST: clear bilaterally, No added sounds, rales or wheezes ABDOMEN: Soft, nontender. No guarding or rebound. EXTREMITIES: No cyanosis, clubbing or edema. NEUROLOGIC: Generalized weakness. Unable to assess Vent Setting Ventilator Support Mode: AC Fraction of Inspired Oxygen pe: 30 Positive End Expiratory Pressu: 5.0 Results/Medications Result Diagram: 09/29/18 0450 09/29/18 0450 Results 24 hrs Laboratory Tests Test 09/28/18 11:45 09/29/18 04:50 Blood Gas Specimen Source Blood arterial Arterial Blood Date Drawn 09/28/2018 11:43:01 AM Arterial Blood pH (Temp corrected) 7.501 H Arterial Blood pCO2 (Temp correct) 36.2 Arterial Blood pO2 (Temp corrected) 145.4 H Arterial Blood HCO3 27.7 H Arterial Blood Base Excess 4.3 H Arterial Blood Oxygen Saturation 98.8 H Tino Test ACCEPTAB Arterial Blood Gas Puncture Site Right Radial Arterial Blood Carboxyhemoglobin 0.3 Arterial Blood Methemoglobin 0.4 Blood Gas A-a O2 Differential 26.0 H Oxyhemoglobin Percent 98.1 Blood Gas Temperature 37.0 Blood Gas Modality VENT - CPAP FiO2 30.0 Blood Gas Low PEEP Setting 5.0 Blood Gas Pressure Support 10 Blood Gas Notified Whom TM Blood Gas Notified Time 09/28/2018 11:51:43 AM White Blood Count 12.5 H Red Blood Count 2.50 L Hemoglobin 7.9 L Hematocrit 23.1 L Mean Corpuscular Volume 92.4 Mean Corpuscular Hemoglobin 31.6 Mean Corpuscular Hemoglobin Concent 34.2 Red Cell Distribution Width 12.6 Platelet Count 343 Mean Platelet Volume 9.6 Immature Granulocytes % 1.000 H Neutrophils % 78.3 H Lymphocytes % 9.9 L Monocytes % 8.5 Eosinophils % 1.8 Basophils % 0.5 Nucleated Red Blood Cells % 0.0 Immature Granulocytes # 0.130 H Neutrophils # 9.8 H Lymphocytes # 1.2 Monocytes # 1.1 H Eosinophils # 0.2 Basophils # 0.1 Nucleated Red Blood Cells # 0.0 Sodium Level 129 L Potassium Level 4.5 Chloride Level 96 L Carbon Dioxide Level 28 Anion Gap 5 Blood Urea Nitrogen 12 Creatinine 0.40 L Est Glomerular Filtrat Rate mL/min > 60 Glucose Level 117 Calcium Level 8.3 L Phosphorus Level 4.3 Magnesium Level 1.9 Total Bilirubin 0.0 L Direct Bilirubin 0.00 Indirect Bilirubin 0.0 Aspartate Amino Transf (AST/SGOT) 23 Alanine Aminotransferase (ALT/SGPT) 26 Alkaline Phosphatase 31 L Total Protein 5.1 L Albumin 2.5 L Globulin 2.60 Albumin/Globulin Ratio 0.96 Medications Current Medications IV Flush (NS 3 ml) 3 ml PER PROTOCOL IV ; Start 09/17/18 at 03:30 Ondansetron HCl (Zofran Inj) 4 mg Q6H PRN IV NAUSEA/VOMITING; Start 09/17/18 at 03:30 Acetaminophen (Tylenol Tab) 650 mg Q6H PRN PO .PAIN 1-3 OR TEMP; Start 09/17/18 at 03:30 Docusate Sodium (Colace) 100 mg Q12H PRN PO .CONSTIPATION; Start 09/17/18 at 03:30 Magnesium Hydroxide (Milk Of Mag) 30 ml DAILY PRN PO .CONSTIPATION; Start 09/17/18 at 03:30 Heparin Sodium (Porcine) (Heparin (5000 Units/1ml)) 5,000 unit Q12 SC Last administered on 09/28/18at 20:55; Admin Dose 5,000 UNIT; Start 09/17/18 at 09:00 Albuterol/ Ipratropium (Duoneb) 3 ml Q4H RESP THERAPY PRN HHN SHORTNESS OF BREATH; Start 09/17/18 at 03:30 Hydralazine HCl (Apresoline) 10 mg Q6H PRN IV ELEVATED BLOOD PRESSURE; Start 09/17/18 at 03:30 Nitroglycerin (Nitroglycerin (Sl Tab) 0.4 Mg) 1 tab Q5M PRN SL ANGINA; Start 09/17/18 at 03:30 Lorazepam (Ativan) 1 mg Q2H PRN IV SEIZURES Last administered on 09/17/18at 03:57; Admin Dose 1 MG; Start 09/17/18 at 03:30 Miscellaneous Information (Pending Santyl Order For Wound Care) This patient goel... PRN PRN XX WOUND CARE; Start 09/17/18 at 05:00 Collagenase (Santyl) 1 applic DAILY TOP Last administered on 09/28/18at 09:25; Admin Dose 1 APPLIC; Start 09/19/18 at 11:30 IV Flush (NS 10 ml) 10 ml PRN PRN IV IV PROTOCOL; Start 09/19/18 at 15:00 Cefepime HCl 50 ml @ 100 mls/hr Q12 IVPB Last administered on 09/28/18at 20:54; Admin Dose 100 MLS/HR; Start 09/21/18 at 13:00 Levetiracetam 250 mg/Dextrose 102.5 ml @ 430 mls/hr Q12 IVPB Last administered on 09/28/18at 20:54; Admin Dose 430 MLS/HR; Start 09/24/18 at 21:00 Lansoprazole (Prevacid) 30 mg DAILY@06 PO Last administered on 09/29/18at 05:30; Admin Dose 30 MG; Start 09/25/18 at 06:00 Norepinephrine 250 ml @ 1.875 mls/ hr TITRATE IV ; Start 09/26/18 at 10:30 Assessment/Plan Hospital Course (Demo Recall) IMP: 1. Encephalopathy--post-ictal state s/p status epilepticus. Possibly secondary to elevated phenobarbital level. 2. Vent Dependence 2/2 #1 3. Metabolic acidosis likely secondary to hypoperfusion. Now improved 4. Status post septic Shock 5. s/p lactic acidosis RECS: 1. Titrate levophed to MAP > 65 mm Hg 2. Intravenous antibiotics; de-escalate pending cultures 3. Continue antiepileptics per Neuro 4. Minimize sedation; continue to follow neuro exam 5. DVT and GI prophylaxis Discussed with neurology this morning. Phenobarbital level is now 7.9 and unlikely to interfere with her neurological status. Family still wished to proceed to comfort care is consistent with patient's wishes. We will therefore proceed with extubation Inpatient hospice as needed. JODI MOY MD, [facility] Sep 29, 2018 10:02
[2018-09-29] MEDS: LEVETIRACETAM IV 250 MG in DEXTROSE 5% 100 ML IVPB SCH (10:03)
--- NOTE | 2018-09-29 10:14 | CONS ---
Assessment/Plan Assessment/Plan Hospital Course (Demo Recall) ID PROGRESS NOTE CURRENT ABX: DAY # => Cefepime #9 09/29/18 0450 09/29/18 0450 24H INTERVAL SUMMARY * Clinically stable, family present, no fevers, resting == PLAN IS FOR TRANSFER TO HOSPICE * Indwelling: Endotracheal tube, orogastric tube Prince catheter left upper extremity PICC line MICRO/OTHER * 09/23/18 BCx (-) * 09/20/18 RESPIRATORY CULTURE Final Organism 1 PSEUDOMONAS AERUGINOSA QUANTITY 3+ P.AERUG M.I.C. RX --------- --- AMIKACIN <=2 S AZTREONAM I CEFEPIME 2 S CEFTAZIDIME 4 S CIPROFLOXACIN <=0.25 S GENTAMICIN <=1 S LEVOFLOXACIN 0.5 S TOBRAMYCIN <=1 S PIPERACILLIN/TAZOBACTAM S * 09/19/18 Urine Cx URINE CULTURE Final Organism 1 STREPTOCOCCUS NON TYPEABLE COLONY COUNT 10,000 - 20,000 CFU/ml Beta Streptococcus not Group A maybe a potential pathogen * 09/19/18 BCX (+)CoNS = contaminant -- repeat BCx (-) PHYSICAL EXAMINATION: GENERAL: Afebrile, VSS, non-communicative HEENT: AT, NC, anicteric, orally intubated NECK: Supple, trach midline CHEST: Equal chest rise bilaterally, without dyspnea on observation HEART: Pulse RRR ABDOMEN: Soft / NT EXTREMITIES: Warm, dry SKIN: No rash, no diaphoresis ID ASSESSMENT 58 yo F admit with: 1. Resolving sepsis, s/p shock 2. Gram-positive cocci bacteremia cw contaminant 3. Respiratory failure/PNA 4. 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 Acute on chronic encephalopathy 6. Status post urinary tract infection (-)MRSA Nares ABX ALLERGIES: KNDA INVASIVES: PIV CURRENT ABX: DAY # => Cefepime #9 ID RECOMMENDATIONS/PLAN: 1. == PLAN IS FOR TRANSFER TO HOSPICE FOR TERMINAL EXTUBATION . Consultation Date/Type/Reason Admit Date/Time Sep 16, 2018 at 22:12 Initial Consult Date 09/18/18 Requesting Provider: ANGELLA PERRIN Date/Time of Note DATE: 09/29/18 TIME: 10:14 Exam/Review of Systems Exam Vitals Vital Signs Date Temp Pulse Resp B/P (MAP) Pulse Ox O2 O2 Flow FiO2 Time Delivery Rate 09/29/18 70 14 100 30 05:10 09/29/18 115/73 Mechanical 05:00 (87) Ventilator 09/29/18 98.6 04:00 Intake and Output 09/28/18 09/28/18 09/29/18 1515:00 23:00 07:00 IntakeIntake Total 472.5 ml 350 ml 120 ml OutputOutput Total 475 ml 435 ml 175 ml BalanceBalance -2.5 ml -85 ml -55 ml Results Result Diagram: 09/29/18 0450 09/29/18 0450 Results 24hrs Laboratory Tests Test 09/28/18 11:45 09/29/18 04:50 Blood Gas Specimen Source Blood arterial Arterial Blood Date Drawn 09/28/2018 11:43:01 AM Arterial Blood pH (Temp corrected) 7.501 H Arterial Blood pCO2 (Temp correct) 36.2 Arterial Blood pO2 (Temp corrected) 145.4 H Arterial Blood HCO3 27.7 H Arterial Blood Base Excess 4.3 H Arterial Blood Oxygen Saturation 98.8 H Tino Test ACCEPTAB Arterial Blood Gas Puncture Site Right Radial Arterial Blood Carboxyhemoglobin 0.3 Arterial Blood Methemoglobin 0.4 Blood Gas A-a O2 Differential 26.0 H Oxyhemoglobin Percent 98.1 Blood Gas Temperature 37.0 Blood Gas Modality VENT - CPAP FiO2 30.0 Blood Gas Low PEEP Setting 5.0 Blood Gas Pressure Support 10 Blood Gas Notified Whom TM Blood Gas Notified Time 09/28/2018 11:51:43 AM White Blood Count 12.5 H Red Blood Count 2.50 L Hemoglobin 7.9 L Hematocrit 23.1 L Mean Corpuscular Volume 92.4 Mean Corpuscular Hemoglobin 31.6 Mean Corpuscular Hemoglobin Concent 34.2 Red Cell Distribution Width 12.6 Platelet Count 343 Mean Platelet Volume 9.6 Immature Granulocytes % 1.000 H Neutrophils % 78.3 H Lymphocytes % 9.9 L Monocytes % 8.5 Eosinophils % 1.8 Basophils % 0.5 Nucleated Red Blood Cells % 0.0 Immature Granulocytes # 0.130 H Neutrophils # 9.8 H Lymphocytes # 1.2 Monocytes # 1.1 H Eosinophils # 0.2 Basophils # 0.1 Nucleated Red Blood Cells # 0.0 Sodium Level 129 L Potassium Level 4.5 Chloride Level 96 L Carbon Dioxide Level 28 Anion Gap 5 Blood Urea Nitrogen 12 Creatinine 0.40 L Est Glomerular Filtrat Rate mL/min > 60 Glucose Level 117 Calcium Level 8.3 L Phosphorus Level 4.3 Magnesium Level 1.9 Total Bilirubin 0.0 L Direct Bilirubin 0.00 Indirect Bilirubin 0.0 Aspartate Amino Transf (AST/SGOT) 23 Alanine Aminotransferase (ALT/SGPT) 26 Alkaline Phosphatase 31 L Total Protein 5.1 L Albumin 2.5 L Globulin 2.60 Albumin/Globulin Ratio 0.96 Medications Medication Current Medications IV Flush (NS 3 ml) 3 ml PER PROTOCOL IV ; Start 09/17/18 at 03:30 Ondansetron HCl (Zofran Inj) 4 mg Q6H PRN IV NAUSEA/VOMITING; Start 09/17/18 at 03:30 Acetaminophen (Tylenol Tab) 650 mg Q6H PRN PO .PAIN 1-3 OR TEMP; Start 09/17/18 at 03:30 Docusate Sodium (Colace) 100 mg Q12H PRN PO .CONSTIPATION; Start 09/17/18 at 03 :30 Magnesium Hydroxide (Milk Of Mag) 30 ml DAILY PRN PO .CONSTIPATION; Start 09/17/18 at 03:30 Heparin Sodium (Porcine) (Heparin (5000 Units/1ml)) 5,000 unit Q12 SC Last administered on 09/28/18at 20:55; Admin Dose 5,000 UNIT; Start 09/17/18 at 09:00 Albuterol/ Ipratropium (Duoneb) 3 ml Q4H RESP THERAPY PRN HHN SHORTNESS OF BREATH; Start 09/17/18 at 03:30 Hydralazine HCl (Apresoline) 10 mg Q6H PRN IV ELEVATED BLOOD PRESSURE; Start 09/17/18 at 03:30 Nitroglycerin (Nitroglycerin (Sl Tab) 0.4 Mg) 1 tab Q5M PRN SL ANGINA; Start 09/17/18 at 03:30 Lorazepam (Ativan) 1 mg Q2H PRN IV SEIZURES Last administered on 09/17/18at 03:57; Admin Dose 1 MG; Start 09/17/18 at 03:30 Miscellaneous Information (Pending Santyl Order For Wound Care) This patient goel... PRN PRN XX WOUND CARE; Start 09/17/18 at 05:00 Collagenase (Santyl) 1 applic DAILY TOP Last administered on 09/28/18at 09:25; Admin Dose 1 APPLIC; Start 09/19/18 at 11:30 IV Flush (NS 10 ml) 10 ml PRN PRN IV IV PROTOCOL; Start 09/19/18 at 15:00 Cefepime HCl 50 ml @ 100 mls/hr Q12 IVPB Last administered on 09/28/18at 20:54; Admin Dose 100 MLS/HR; Start 09/21/18 at 13:00 Levetiracetam 250 mg/Dextrose 102.5 ml @ 430 mls/hr Q12 IVPB Last administered on 09/29/18at 10:03; Admin Dose 430 MLS/HR; Start 09/24/18 at 21:00 Lansoprazole (Prevacid) 30 mg DAILY@06 PO Last administered on 09/29/18at 05:30; Admin Dose 30 MG; Start 09/25/18 at 06:00 Norepinephrine 250 ml @ 1.875 mls/ hr TITRATE IV ; Start 09/26/18 at 10:30 PETE LALA G[employer]ER Sep 29, 2018 10:14
--- NOTE | 2018-09-29 10:57 | CONS ---
Assessment/Plan Assessment/Plan Hospital Course 58 yo F with reported Hx of West Nile Virus c/b chronic encephalopathy who p/w ams. She was additionally reported to have a seizure... for which neurology is consu lted. Most clinically consistent with new onset epilepsy...with likely subtle seizures that were undiagnosed over a longer period.. Initial EEG was notable for GPEDs and an electrographic seizure originating in the R temporal region.. s/p Dilantin load, with ongoing episodic staring spells (presumed seizures) noted clinically.. s/p Phenobarbital load on 09/18..with resolution of episodes suspicious for seizure P: Goals of care per primary Continue Keppra bid for now; 250mg.. Will follow clinically Consultation Date/Type/Reason Admit Date/Time Sep 16, 2018 at 22:12 Type of Consult Neurology Requesting Provider: ANGELLA PERRIN Date/Time of Note DATE: 09/29/18 TIME: 10:54 24 HR Interval Summary Free Text/Dictation Continues icu care Subjective hx not possible: pt non-verbal Exam Vital Signs Vitals Vital Signs Date Temp Pulse Resp B/P (MAP) Pulse Ox O2 O2 Flow FiO2 Time Delivery Rate 09/29/18 70 14 100 30 05:10 09/29/18 115/73 Mechanical 05:00 (87) Ventilator 09/29/18 98.6 04:00 Intake and Output 09/28/18 09/28/18 09/29/18 1515:00 23:00 07:00 IntakeIntake Total 472.5 ml 350 ml 120 ml OutputOutput Total 475 ml 435 ml 175 ml BalanceBalance -2.5 ml -85 ml -55 ml Exam PE: Gen Appearance: No Apparent Distress HEENT: Intubated Cardiovascular: Regular rate Abdomen: Soft Extremities: Dry NE: The patient was awake, though nonverbal. Cranial nerve examination was limited by mental status. Pupils were equal and reactive to light. There was no afferent pupillary defect. Funduscopic examination was limited. Face was grossly symmetric, w/ present corneal and cough reflexes. Tone was normal. Muscle bulk was normal. I did not see fasciculations. The patient withdrew to noxious stimulation x 4. Coordination and gait testing was limited by mental status. Arm and leg reflexes were within normal limits and symmetric. Hudson's sign was absent. Plantar responses were flexor. IDOKO,CA Sep 29, 2018 10:57
[2018-09-29] MEDS ORDERED: DIMETHICONE STICK TOP PRN ×2 (12:30)
[2018-09-29] MEDS ORDERED: ARTIFICIAL TEARS 15 ML OPH BOTH EYES PRN (12:30)
[2018-09-29] MEDS ORDERED: ATROPINE 1% 5 ML OPH SL PRN (14:00)
[2018-09-29] MEDS ORDERED: LORAZEPAM 2 MG INJ IV ONE (14:00)
[2018-09-29] MEDS ORDERED: ACETAMINOPHEN 650 MG SUPP PR PRN (14:00)
[2018-09-29] MEDS ORDERED: ONDANSETRON 4 MG INJ IV PRN (14:00)
[2018-09-29] MEDS ORDERED: morphine 2 MG INJ IV ONE (14:30)
[2018-09-29] MEDS ORDERED: SCOPOLAMINE 1.5 MG PATCH TRANSDERM SCH (15:00)
[2018-09-29] MEDS: morphine (DRIP) 100 MG/100 ML 100 ML IV SCH (15:27)
[2018-09-29 22:55] LABS: VARICELLA-ZOSTER VIRUS AB IgM 0.53
[2018-09-30] VITALS (10 sets, daily range): RESP 6–12
[2018-09-30] MEDS: ARTIFICIAL TEARS 15 ML OPH BOTH EYES PRN ×2 (02:49→18:22)
[2018-09-30] MEDS: ATROPINE 1% 5 ML OPH SL PRN ×3 (04:31→18:23)
[2018-09-30] MEDS: morphine (DRIP) 100 MG/100 ML 100 ML IV SCH ×4 (06:38→18:25)
[2018-09-30] MEDS: LORAZEPAM 2 MG INJ IV PRN (10:53)
--- NOTE | 2018-09-30 12:48 | HP ---
DATE OF ADMISSION: 09/16/2018 CHIEF COMPLAINT AND HISTORY OF PRESENT ILLNESS: History is obtained from patient's medical record an d also discussion with the patient's . The patient is a 58-year-old female with history of [place] [address] Nile virus encephalitis, who has been nonverbal and bedridden and was being fed pureed diet at [facility]. The patient was being cared by her for over 1 year. The patient was brought into ER at [facility] on 09/16/2018 due to altered mental status and new onset of seizure. The patient was also diagnosed with urinary tract infection. The patient developed acute respiratory fa ilure and was seen by Dr. Magaly Zaldivar from neurology standpoint. The patient had EEG done which r evealed slowing of the background with generalized periodic epileptiform discharges indicating severe diffuse cortical dysfunction of nonspecific etiology. The patient remains nonverbal and palliative care consult was obtained. The patient's family subsequently decided to remove the ventilator and pl aced the patient on comfort care only. The patient has no quality of life and patient's did not want to have G-tube or continued life support including tracheostomy. The patient was admitted a [facility] level of care for respiratory failure. The patient did not have any seizure on the day of admi ssion. No reported fever. No reported vomiting. No reported leg edema. No reported abdominal dist ention. No reported bleeding from any site. REVIEW OF SYSTEMS: Rather limited. PAST MEDICAL HISTORY: As stated above. In addition, the patient also has history of dyslipidemia an d hypertension. SOCIAL HISTORY: No smoking, no alcohol. FAMILY HISTORY: The patient's mother had Alzheimer's disease. PHYSICAL EXAMINATION GENERAL: Revealed the patient to be breathing comfortably on ventilator. HEENT: No eye discharge or redness. Conjunctivae and lids are normal. Nose and ears are normal. NECK: No mass. No JVD. CHEST: Diminished air entry at bases. No use of accessory muscles. CARDIOVASCULAR: S1, S2 are normal. No murmur. ABDOMEN: Soft, nondistended, nontender. EXTREMITIES: No leg edema. Pedal pulses are palpable. SKIN: Without acute rash. NEUROLOGIC: The patient is noncommunicative. LABORATORY DATA: Done on the day of admission, WBC 12.5, hemoglobin 7.9, platelet 343. Sodium 129, potassium 4.5, BUN 12, creatinine 0.4, glucose 117. AST 23, ALT 26, albumin 2.5. IMPRESSION: 1. West Nile virus encephalitis. Now, the patient has chronic encephalopathy. 2. Seizure disorder. 3. Recent acute respiratory failure. 4. History of hypertension. 5. Dyslipidemia. PLAN: The patient has been made DNR and will be placed on comfort care only. The patient will be gi al IV morphine 5 mg and IV Ativan 2 mg prior to external extubation and will be started on morphine drip at 1 mg an hour. We will also put the patient on IV Ativan 1 mg q.2 p.r.n. for seizures or term inal anxiety. We will add scopolamine patch and atropine drops for secretions, IV Zofran for vomitin g. The patient will be also placed on Tylenol suppository q.4 p.r.n. for temperature. Plan of care was discussed with the patient's nurse, Jesica nurse. We will continue to optimize comfort care. Dictated By: SHEELA FLEMING/REBEKAH Conf#: [id number] DID#: [id number] CC: JODI MOY MD; ANGELLA PERRIN; DYLAN RAMOS MD;*End*
[2018-09-30 16:22] LABS: VARICELLA-ZOSTER VIRUS AB IgG 428.6 INDEX (<= 0.90)
--- NOTE | 2018-10-01 01:24 | PN ---
DATE: 09/30/2018 SUBJECTIVE: Follow up on acute respiratory failure, viral encephalitis, dysphagia. The patient has continued to decline and was increasingly short of breath after extubation and morphine dose has been increased to 8 mg an hour. The patient seems more comfortable now and she has not had any fever or chills. No reported seizure. No reported vomiting. The patient has not had any p.o. intake. PHYSICAL EXAMINATION: GENERAL: Revealed the patient to be lethargic. VITAL SIGNS: Respiratory rate is between 6 to 8. The patient is on 2 liters nasal cannula, blood pr essure 108/69, pulse 96. NECK: No mass. CHEST: Diminished air entry at bases. No use of accessory muscles. CARDIOVASCULAR: S1, S2 normal. No murmur. ABDOMEN: Soft, nondistended, nontender. EXTREMITIES: No edema. NEUROLOGIC: The patient is nonverbal. IMPRESSION: 1. Acute respiratory failure. 2. Encephalopathy due to viral encephalitis. 3. Anemia. 4. Seizure disorder. PLAN: As mentioned above. Morphine dose has been increased to 8 mg an hour. Continue scopolamine p atch and atropine drops for secretion. Continue IV Ativan on p.r.n. basis for seizures. The patient has not had any breakthrough seizures since admission. [facility] condition and plan of care. I also spoke with VITAS nurse and nursing sta ff at [facility]. We will continue to optimize comfort care. Dictated By: SHEELA FLEMING/NTS Conf#: [id number] DID#: [id number] CC: ANGELLA PERRIN; JODI MOY MD;*End*
[2018-10-01] MEDS: morphine (DRIP) 100 MG/100 ML 100 ML IV SCH (05:53)
[2018-10-01] MEDS: ARTIFICIAL TEARS 15 ML OPH BOTH EYES PRN (08:12)
[2018-10-01] MEDS: LORAZEPAM 2 MG INJ IV PRN (08:12)
[2018-10-01] MEDS: ATROPINE 1% 5 ML OPH SL PRN (08:12)
[2018-10-01 09:00] VITALS: RESP 10
--- NOTE | 2018-10-01 19:47 | DES ---
DATE OF ADMISSION: 09/16/2018 DATE OF : 10/01/2018 DATE OF EXPIRY: 10/01/2018. TIME: 12:08 p.m. CAUSE OF : West Nile encephalitis. COMORBID CONDITION: Acute respiratory failure, seizure disorder, and anemia. 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 The patient was being cared by her at home. The patient was on pureed diet and was nonverbal. The piedad nt was brought into hospital on 09/16/2018, because of altered mental status and new onset of seizure . The patient was diagnosed with new onset of seizure and also was in respiratory failure. The scotty ent was intubated and subsequently was extubated and put on BiPAP. The patient was seen by Dr. Christian Zaldivar from neurology standpoint and Dr. Islas's group from pulmonary standpoint. Family reques amaris comfort care and terminal extubation. The patient was admitted on hospice on 09/20/2018 and was admitted at [facility] level of care. The patient was extubated. Prior to extubation, the patient was give n 5 mg of morphine and 2 mg of Ativan and was put on morphine drip for comfort care. The patient's h mitzy was managed with a bolus dose of morphine and then subsequently patient was started on IV morph ine drip. The patient was also given IV Ativan 2 mg p.r.n. for anxiety and breakthrough seizure. Ho wever, the patient did not have any breakthrough seizures, although she did have terminal anxiety and did receive a dose of IV Ativan earlier this morning also. The patient was placed on scopolamine pa tch and atropine drops for secretions. I spoke with the patient's with the desk nurse as wel l as [facility] staff nurse regarding the patient's condition and plan of care. The patient did have a term inal fever this morning with a T-max 100.8. The patient continued to decline and morphine dose was increased to 80 mg an hour. The patient stopped breathing and had no pulse or blood pressure, and wa s nonverbal. The patient did not have any heart sounds or any spontaneous respiratory movement. The patient's pupils were fixed and dilated. The patient did not respond to painful stimuli and was pro nounced at 12:08 p.m. on 10/01/2018. The patient's family was notified by the nurse. Dictated By: SHEELA FLEMING/REBEKAH Conf#: [id number] DID#: [id number] CC: ANGELLA PERRIN;*EndCC*
== END 2018-10-01 12:08 | disposition expired | DRG 100 ==
LOC: 6WM 22:12 → ICU 09-18 17:50 → MS1 09-29 18:10
PROVIDERS: ADMIT Hospitalist; ATTEND Internal Medicine
PROC: 0BH17EZ Insertion of Endotracheal Airway into Trachea, Via Natural or Artificial Opening (ICD-10-PCS; principal; 2018-09-18)
PROC: 5A1955Z Respiratory Ventilation, Greater than 96 Consecutive Hours (ICD-10-PCS; 2018-09-18)
PROC: 02HV33Z Insertion of Infusion Device into Superior Vena Cava, Percutaneous Approach (ICD-10-PCS; 2018-09-19)
DX: G40.901 Epilepsy, unspecified, not intractable, with status epilepticus (principal); A41.9 Sepsis, unspecified organism; R65.21 Severe sepsis with septic shock; J69.0 Pneumonitis due to inhalation of food and vomit; J96.00 Acute respiratory failure, unspecified whether with hypoxia or hypercapnia; A92.31 West Nile virus infection with encephalitis; G93.40 Encephalopathy, unspecified; E87.2 Acidosis; E87.1 Hypo-osmolality and hyponatremia; I47.1 Supraventricular tachycardia; N39.0 Urinary tract infection, site not specified; D64.9 Anemia, unspecified; E78.5 Hyperlipidemia, unspecified; F02.80 Dementia in other diseases classified elsewhere, unspecified severity, without behavioral disturbance, psychotic disturbance, mood disturbance, and anxiety; I10 Essential (primary) hypertension; Z66 Do not resuscitate; Z74.01 Bed confinement status
CPT/HCPCS: 36569; 36600; 70553; 71045; 76937; 80048; 80053; 80061; 80076; 80184; 80185; 81001; 82140; 82270; 82550; 82553; 82803; 82962; 83036; 83605; 83735; 84100; 84439; 84443; 84484; 85025; 85610; 85730; 86592; 86692; 86704; 86803; 87040; 87070; 87081; 87086; 87340; 92610; 93306; 94002; 94003; 94770; 95819; 97165; C9113; J0692; J0696; J1165; J1644; J1940; J1953; J2060; J2270; J2560; J3370; J3475; J3480; J7030; J7042; J7050; J7121